=== PATIENT | female | born 1940 | race Caucasian/White ===

== ENCOUNTER 2017-10-11 14:36 | Outpatient (CLI) | payer MEDICARE ==
--- NOTE | 2017-10-11 15:38 | SJPRAD ---
LEFT FEMUR FOUR VIEWS: History: Thigh pain. FINDINGS: Total hip prosthesis is in satisfactory position. No signs of fracture or loosening. The bones are ve ry demineralized. Fracture along the left side of the symphysis which appears to extend into the supe rior pubic ramus is noted. This was not present on the 04-06-17 study. IMPRESSION: Fracture of the left side of the symphysis and superior pubic ramus which is nondisplaced. POS: [facility]
--- NOTE | 2017-10-11 15:44 | SJPRAD ---
LEFT HIP TWO VIEWS: History: Hip pain. FINDINGS: The bones are demineralized. Total hip prosthesis is in good position without evidence of loosening o r fracture. There is a fracture involving the left side of the symphysis near the junction of the superior and in ferior pubic rami. In reviewing a previous 04-06-17 study this was not present. This could be related to trauma or possibly be an insufficiency type fracture related to osteoporosis. IMPRESSION: Fracture along the left side of the symphysis which is new as compared to a 04-06-17 exam. POS: [facility]
== END 2017-10-11 14:37 | disposition home or self-care (01) ==
LOC: MWLC RAD 14:36
PROVIDERS: ATTEND Internal Medicine Geriatric Medicine
DX: M25.552 Pain in left hip (principal); S32.512D Fracture of superior rim of left pubis, subsequent encounter for fracture with routine healing

== ENCOUNTER 2017-10-22 14:39 | Inpatient (IN) | payer MEDICARE, OTHER ==
[2017-10-22 15:17] LABS: #Lymphocytes 1.1 thou/uL (1.20-3.40); #Monocytes 1.5 thou/uL (0.11-0.59); #Neutrophils 9.4 thou/uL (1.40-6.50); %Basophils 0.3 % (0.0-1.0); %Eosinophils 0.2 % (0.0-10.0); %Lymphocytes 9.3 % (21.0-51.0); %Monocytes 12.4 % (0.0-10.0); Hematocrit 39.1 % (36.0-47.0); Mean Platelet Volume 9.4 fL (7.4-10.4); Red Blood Cell (RBC) Count 3.81 mill/uL (4.20-5.40); White Blood Cell (WBC) Count 12.1 thou/uL (4.8-10.8)
[2017-10-22] MEDS ORDERED: Ondansetron HCl/PF 4 MG/2 ML Vial ONE (15:23)
[2017-10-22 15:35] LABS: Lactic Acid - Sepsis 2.2 mmol/L (0.5-2.2)
[2017-10-22 16:17] LABS: Bilirubin Small (Negative); Blood, Urine Negative (Negative); Glucose, Urine (Dipstick) Negative (Negative); Ketone, Urine > or equal to 80 mg/dL (Negative); Nitrite Negative (Negative); Protein, Urine (Dipstick) 300 mg/dL (Neg-Trace)
[2017-10-22 16:18] LABS: Bacteria/HPF None Seen HPF (None Seen); Hyaline Casts/LPF 0-3 HYALINE CAST LPF (0-3 Hyaline); RBC/HPF 0-3 HPF (0-3); Squamous Epithelial 0-3 HPF (0-3); WBC/HPF 0-3 HPF (0-3)
[2017-10-22] MEDS ORDERED: Azithromycin 500 MG VIAL ONE (16:21)
[2017-10-22] MEDS ORDERED: Acetaminophen 325 MG TAB PO PRN (16:46)
[2017-10-22] MEDS ORDERED: Acetaminophen 650 MG Suppository PR PRN (16:46)
[2017-10-22 16:49] LABS: Chloride 101 mmol/L (98-107)
[2017-10-22 16:50] LABS: Calcium 8.6 mg/dL (7.8-10.44); Globulin 3.2 g/dL (2.4-3.5); Protein, Total 6.4 g/dL (6.0-8.3)
[2017-10-22 16:52] LABS: Anion Gap 17 mmol/L (10-20); Bilirubin, Total 0.5 mg/dL (0.2-1.2); Carbon Dioxide 21 mmol/L (23-31)
[2017-10-22 16:53] LABS: Alkaline Phosphatase 106 U/L (40-150); Calc. Creatinine Clearance 0 mL/min (70-130); Estimated GFR-MDRD Greater than 90
[2017-10-22 16:54] LABS: BUN (Urea Nitrogen) 9 mg/dL (9.8-20.1)
[2017-10-22 16:55] LABS: AST (SGOT) 22 U/L (5-34)
[2017-10-22 16:56] LABS: ALT (SGPT) 13 U/L (8-55)
[2017-10-22] MEDS ORDERED: cefTRIAXone\\ROCEPHIN 1 GM in Sodium Chloride 0.9% 100 ML IVPB SCH (17:00)
--- NOTE | 2017-10-22 17:05 | RAD ---
PORTABLE AP CHEST X-RAY 10/22/17 HISTORY: Cough. Frequent falls. COMPARISON: 07/21/15. FINDINGS: Postsurgical changes related to the anterior cervical fusion of the lower cervical spine are noted. T here is osteopenia. Vertebroplasty changes of the mid and lower thoracic spine are present. Vascular calcifications seen in the thoracic aorta. The cardiac silhouette and pulmonary vasculature are within normal limits. There is mild increased in terstitial densities throughout the lungs bilaterally, most likely reflective of chronic interstitial lung changes. No new focal area of consolidation or pleural fluid is seen. IMPRESSION: 1. Stable increased interstitial densities bilaterally, greater in the right upper lung zone pro bably related to chronic lung changes. 2. Osteopenia. POS: [facility]
--- NOTE | 2017-10-22 17:48 | HP ---
PRIMARY CARE PHYSICIAN: Johana Reina M.D. CHIEF COMPLAINT: Shortness of breath. HISTORY OF PRESENT ILLNESS: Mr. Thomas Merritt is a pleasant 76-year-old lady who was seen at [facility]. She is a poor historian. She initially presented to the emergency room rep orting frequent falls at home and feeling dizzy. She also reportedly told the staff that was giving her too much tramadol. She also told the emergency room physician that she had nausea, fever , and diarrhea. She denies vomiting. When I spoke to her, she denied having any nausea or vomiting. She reports feeling short of breath s mirna this morning. She also reports coughing since this morning. Her reports that she had f muriel at home. She denied that her give her much tramadol. She denied any chest pain. She denied any abdominal pain. Her main complaint was that she was having difficult time breathing. REVIEW OF SYSTEM: The following complete review of systems was negative, unless otherwise mentioned in the HPI or below: Constitutional: Weight loss or gain, sense of well-being, ability to conduct usual activities, exerc ise tolerance. Skin/Breast: Rash, itching, changes in hair growth or loss, nail changes, breast lumps, tenderness, swelling, nipple discharge. Eyes: Vision, double vision, tearing, blind spots, pain. ENT/Mouth: Headaches (location, time of onset, duration, precipitating factors), vertigo, lightheade dness, injury. Vision, double vision, tearing, blind spots, pain, nose bleeding, colds, obstruction, discharge, dental difficulties, gingival bleeding, dentures, neck stiffness, pain, tenderness, masses in thyroid or other areas. Cardiovascular: Precordial pain, substernal distress, palpitations, syncope, dyspnea on exertion, or thopnea, nocturnal paroxysmal dyspnea, edema, cyanosis, hypertension, heart murmurs, varicosities, ph lebitis, claudication. Respiratory: Pain, shortness of breath, wheezing, stridor, cough, hemoptysis, fever or night sweats. Gastrointestinal: Poor appetite, dysphagia, indigestion, abdominal pain, heartburn, eructation, naus ea, vomiting, hematemesis, jaundice, constipation, or diarrhea, abnormal stools (orin-colored, tarry, bloody, greasy, foul smelling), flatulence, hemorrhoids, recent changes in bowel habits. Genitourinary: Urgency, frequency, dysuria, nocturia, hematuria, polyuria, oliguria, unusual (or cherry nge in) color of urine, stones, hesitancy, change in size of stream, dribbling, acute retention or in continence, libido, potency. Musculoskeletal: Pain, swelling, redness or heat of muscles or joints, limitation, of motion, muscul ar weakness, atrophy, cramps. Neurologic/Psychiatric: Convulsions, paralyses, tremor, incoordination, parasthesias, difficulties w ith memory of speech, sensory or motor disturbances, or muscular coordination (ataxia, tremor), emoti onal problems, anxiety, depression, previous psychiatric care, unusual perceptions, hallucinations. Allergy/Immunologic: Skin rash, anemia, bleeding tendency, polydipsia, polyuria, intolerance to heat or cold. PAST MEDICAL HISTORY: Significant for coronary artery disease, status post non-ST elevation myocardi al infarction, BENDING ROLL HAND including drug-coated stent placement to mid LAD in 12/2014, ischemic cardiomyopat hy, chronic obstructive pulmonary disease, hypertension, depression, anxiety, osteoporosis, falls, ch ronic pain syndrome, colon polyps, gastroesophageal reflux disease. PAST SURGICAL HISTORY: Significant for open reduction and internal fixation of right hip fracture, h ysterectomy, laminectomy of cervical spine, appendectomy, cholecystectomy, L5 medial facetectomy and laminectomy with foraminotomy in 2008, T11-T12 compression fracture with kyphoplasty, C4-C7 anterior cervical diskectomy and cardiac catheterization with PCI. FAMILY HISTORY: She was adopted, does not know any family history. SOCIAL HISTORY: She denies tobacco use, alcohol use or recreational drug use. PSYCHIATRIC HISTORY: Includes anxiety and depression. ALLERGIES: CODEINE. CURRENT MEDICATIONS: These will need to be clarified. In the past, she was on acetaminophen, Xanax, aspirin, Lipitor, Coreg, clonazepam, Neurontin, [place], lisinopril, polyethylene glycol, and trazodon e. CODE STATUS: I discussed her code status in the presence of her . She wishes to be DNR. PHYSICAL EXAMINATION: GENERAL: Ms. Thomas Merritt is awake and alert, in mild respiratory distress. VITAL SIGNS: Blood pressure is 159/75, pulse is 109. She is breathing at rate of 18, and saturating 96% on room air. She had a temperature of 100 degrees Fahrenheit in the emergency room. She weighs 54 kilograms. EYES: No scleral icterus. No conjunctival pallor. ENT: Moist mucosal membranes, no oropharyngeal erythema or exudates. NECK: Accessory muscles of breathing are active. Chest wall movements are symmetric bilaterally. N o jugular venous distention. LUNGS: Examination reveals diminished breath sounds at both lung bases and expiratory wheezes in the upper lung zones. CARDIOVASCULAR: S1 and S2 are heard, tachycardic and regular. Peripheral pulses palpable. No carot id bruit, no pericardial rub. ABDOMEN: Soft, nontender, bowel sounds heard, no hepatomegaly, no splenomegaly. NEUROLOGIC: Cranial nerves II-XII intact. Deep tendon reflexes are 2+. MUSCULOSKELETAL: Power is 5/5 in all 4 extremities. Normal range of movement at all major extremity joints. LYMPHATIC: No cervical lymphadenopathy. PSYCHIATRIC: The patient appears anxious, oriented to person, place, and time. SKIN: No rashes or subcutaneous nodules. LABORATORY DATA: Ms. Thomas Merritt's labs and investigations were reviewed. I reviewed her electrocard iogram, which shows sinus tachycardia, no ST changes to suggest an acute coronary syndrome. I also r eviewed her chest x-ray, which shows hyperinflated lungs, no focal consolidation. Laboratory investi gations showed leukocytosis with 12,100 white cells, of which 77.9% are neutrophils, normal platelet count, normal hemoglobin, decreased sodium of 135, normal potassium, creatinine 0.57, decreased album in of 3.2, but otherwise unremarkable liver profile and a normal lactic acid level of 2.2. Urinalysi s is positive for protein, ketones and small amount of urine bilirubin. ASSESSMENT AND PLAN: Ms. Thomas Merritt is a pleasant 75-year-old lady who was seen at [facility] on 10/22/2017. Her problem list includes: 1. Acute respiratory failure: Ms. Thomas Merritt is presenting to the emergency room with acute respira tory failure. The most likely cause is chronic obstructive pulmonary disease exacerbation/bronchitis . She has been started on ceftriaxone and azithromycin, which I will continue. We will also continu e bronchodilators and initiate steroids. Even though her presentation meets the criteria for her sep sis, it is unclear whether she has any source of infection outside the respiratory tract. We will aw ait blood cultures. We will also check D-dimer to rule out pulmonary embolism. 2. Chronic obstructive pulmonary disease exacerbation/bronchitis: She is currently being treated wi th the BiPAP machine. She appears uncomfortable on the machine. We will try to wean her off of BiPA P if possible. As mentioned earlier, we will treat with oxygen, steroids, antibiotics and bronchodil ators. 3. Hyponatremia: Mild, we will recheck. 4. Hypertension: Monitor vital signs, titrate antihypertensives as needed. 5. Falls: I will request walking program to assess her. She may eventually need PT and OT evaluati ons as well as the discharge plan. She reportedly has been falling quite a bit at home. 6. Gastroesophageal reflux disease: Appears stable. Many thanks for allowing me to participate in your patient's care. Please feel free to contact me wi th any questions or concerns. LEVEL OF RISK: High. LEFT OF COMPLEXITY: High.
[2017-10-23 04:42] LABS: #Lymphocytes 0.9 thou/uL (1.20-3.40); #Monocytes 0.3 thou/uL (0.11-0.59); #Neutrophils 8.1 thou/uL (1.40-6.50); %Basophils 0.1 % (0.0-1.0); %Eosinophils 0.2 % (0.0-10.0); %Lymphocytes 10.1 % (21.0-51.0); %Monocytes 2.9 % (0.0-10.0); Hematocrit 34.8 % (36.0-47.0); Mean Platelet Volume 8.6 fL (7.4-10.4); Red Blood Cell (RBC) Count 3.37 mill/uL (4.20-5.40); White Blood Cell (WBC) Count 9.3 thou/uL (4.8-10.8)
[2017-10-23 04:58] LABS: Anion Gap 12 mmol/L (10-20); BUN (Urea Nitrogen) 12 mg/dL (9.8-20.1); Calc. Creatinine Clearance 60 mL/min (70-130); Calcium 9.1 mg/dL (7.8-10.44); Carbon Dioxide 26 mmol/L (23-31); Chloride 102 mmol/L (98-107); Estimated GFR-MDRD Greater than 90
[2017-10-23] MEDS: Enoxaparin Sodium 40 MG/0.4 ML SYRINGE SC SCH (08:27)
[2017-10-23] MEDS ORDERED: traMADol HCl 50 MG TAB PO PRN (11:53)
--- NOTE | 2017-10-23 11:56 | PDOC.PN ---
- Subjective Encounter Start Date: 10/23/17 Encounter Start Time: 09:20 Pt seen for followup re: acute on chronic respiratory failure. Feels better. Denies chest pain. Shortness of breath is better. No nausea or vomiting. - Objective MAR Reviewed: Yes Vital Signs & Weight: Vital Signs (12 hours) Temp Pulse Resp BP Pulse Ox 10/23/17 11:43 98.0 F 106 H 18 139/62 97 10/23/17 08:00 98.2 F 100 18 99 10/23/17 07:20 99 10/23/17 07:18 100 18 99 10/23/17 07:13 98.2 F 101 H 16 134/76 98 10/23/17 04:15 98.0 F 82 18 124/54 L 96 10/23/17 00:32 87 12 98 10/23/17 00:12 97.7 F 63 16 139/63 98 Weight Weight 104 lb 9.6 oz I&O: 10/22/17 10/23/17 10/24/17 06:59 06:59 06:59 Intake Total 90 Balance 90 Result Diagrams: 10/23/17 03:51 10/23/17 03:51 EKG Reviewed by me: Yes (Tele: NSR) Phys Exam - Physical Examination Appears frail HEENT: moist MMs, sclera anicteric, oral pharynx no lesions Neck: no JVD, supple, full ROM Respiratory: no wheezing, no rales, no rhonchi, clear to auscultation bilateral Diminished air entry emilia bases Cardiovascular: RRR, no rub Gastrointestinal: soft, non-tender, no distention, positive bowel sounds Musculoskeletal: no edema, pulses present Neurological: non-focal, moves all 4 limbs Lymphatic: no nodes Psychiatric: normal affect, A&O x 3 Skin: no rash, normal turgor, cap refill <2 seconds Dx/Plan (1) Acute and chronic respiratory failure Code(s): J96.20 - ACUTE AND CHR RESP FAILURE, UNSP W HYPOXIA OR HYPERCAPNIA Status: Acute (2) COPD exacerbation Code(s): J44.1 - CHRONIC OBSTRUCTIVE PULMONARY DISEASE W (ACUTE) EXACERBATION Status: Acute (3) Protein calorie malnutrition Code(s): E46 - UNSPECIFIED PROTEIN-CALORIE MALNUTRITION Status: Chronic (4) Anxiety Code(s): F41.9 - ANXIETY DISORDER, UNSPECIFIED Status: Chronic (5) CAD (coronary artery disease) Code(s): I25.10 - ATHSCL HEART DISEASE OF [place] CORONARY ARTERY W/O ANG PCTRS Status: Chronic (6) HTN (hypertension) Code(s): I10 - ESSENTIAL (PRIMARY) HYPERTENSION Status: Chronic - Plan continue antibiotics, PT/OT, out of bed/ambulate, DVT proph w/lovenox * . Continue oxygen, steroids, antibiotics and oxygen. Monitor vital signs, titrate antihypertensives as needed. CAD stable. Consult dietitian re: protein calorie malnutrition. Review of Systems - Review of Systems Constitutional: negative: Fever, Chills, Sweats, Weakness, Malaise Respiratory: Cough, Dry, Shortness of Breath, SOB with Excertion, Wheezing. negative: Hemoptysis, Pleuritic Pain, Sputum Cardiovascular: negative: Chest Pain, Palpitations, Orthopnea, Paroxysmal Noc. Dyspnea, Edema, Light Headedness Gastrointestinal: negative: Nausea, Vomiting, Abdominal Pain, Diarrhea, Constipation, Melena, Hematochezia Genitourinary: negative: Dysuria, Frequency, Incontinence, Hematuria, Retention - Medications/Allergies Allergies/Adverse Reactions: Allergies Allergy/AdvReac Type Severity Reaction Status Date / Time codeine [Codeine] AdvReac Unknown Verified 11/09/15 15:12 Medications: Current Medications Acetaminophen (Tylenol) 650 mg PO Q4H PRN PRN Reason: Headache/Fever or Pain Last Admin: 10/22/17 21:12 Dose: 650 mg Acetaminophen (Tylenol) 650 mg OR Q4H PRN PRN Reason: Headache/Fever or Pain Albuterol/Ipratropium (Duoneb) 3 ml NEB [id number] PRN PRN Reason: SOB &/or Wheezing Albuterol/Ipratropium (Duoneb) 3 ml NEB [id number] [facility] Last Admin: 10/23/17 07:18 Dose: 3 ml Aspirin (Aspirin) 81 mg PO DAILY [facility] Atorvastatin Calcium (Lipitor) 40 mg PO DAILY [facility] Carvedilol (Coreg) 6.25 mg PO BID [facility] Enoxaparin Sodium (Lovenox) 40 mg SC 0900 [facility] Last Admin: 10/23/17 08:27 Dose: 40 mg Gabapentin (Neurontin) 300 mg PO BID [facility] Azithromycin 500 mg/ Sodium (Chloride) 250 mls @ 250 mls/hr IVPB 1600 [facility] Ceftriaxone Sodium 1 gm/ (Syringe 0.4 ml/ Sterile Water) 10 mls @ 120 mls/hr SLOW IVP 1500 [facility] Lisinopril (Zestril) 5 mg PO BID [facility] Methylprednisolone Sodium Succinate (Solu-Medrol) 40 mg IVP Q6HR [facility] Last Admin: 10/23/17 06:16 Dose: 40 mg Mirtazapine (Remeron) 30 mg PO DAILY [facility] Non-Formulary Medication (Clopidogrel Bisulfate [Clopidogrel]) 75 mg PO DAILY [facility] Tramadol HCl (Ultram) 50 mg PO PRN PRN PRN Reason: Pain
[2017-10-23] MEDS ORDERED: cefTRIAXone\\ROCEPHIN 1 GM, Syringe 0.4 ML in Sterile Water 9.6 ML SLOW IVP SCH (15:00)
[2017-10-23] MEDS ORDERED: Azithromycin 500 MG in Sodium Chloride 0.9% 250 ML 250 ML IVPB SCH (16:00)
--- NOTE | 2017-10-23 20:54 | CON ---
DATE OF CONSULT: 10/23/2017 Ashlee Merritt is a pleasant 76-year-old female. She is a fair historian at best. She apparently felt dizzy prior to admission. She denied shortness of breath to me, but told the adm itting physician that she was short of breath. She subsequently has been admitted. All she wanted t o talk about was why her cellphone was at the bedside, why did not have the contract management specialist and wanted to daniel goode who brought it to her. PAST MEDICAL HISTORY: Remarkable for, 1. Coronary artery disease. 2. History of drug-eluting stent placement in her LAD in 2014. 3. History of ischemic cardiomyopathy. 4. History of obstructive lung disease. 5. History of hypertension. 6. History of anxiety. 7. History of chronic pain. 8. History of colon polyps. 9. History of reflux disease. 10. History of hip fracture repair. 11. Status post hysterectomy. 12. History of cervical laminectomy. 13. History of cholecystectomy. 14. History of L5 surgery in 2008. 15. History of T11-T12 compression fractures with kyphoplasty. 16. History of C4 through C7 anterior diskectomy. SOCIAL HISTORY: She is a nonsmoker, nondrinker. ALLERGIES: She reports an allergy to CODEINE. FAMILY HISTORY: There is no family history since she is adopted. PHYSICAL EXAMINATION: GENERAL: She knows she is in the hospital. She is afebrile. She very quickly told me that her nerv es were a mess. VITAL SIGNS: Heart rate was 97, respiratory rate was 18, oximetry is 91 on 2 liters, blood pressure 139/62. HEENT: Pupils are equal. Sclerae is anicteric. NECK: Supple. LUNGS: Remarkable for distant breath sounds. HEART: Regular rhythm. S1 and S2 are normal. ABDOMEN: Soft and nontender. EXTREMITIES: Without asymmetry. LABORATORY AND X-RAY FINDINGS: Chest radiograph shows an increase in interstitial markings. I do n ot see any alveolar infiltrates. White count 9.3, hemoglobin 10.8, platelets 192. Sodium 136, potas sium 3.8, chloride 102, bicarbonate 26, BUN 12, creatinine 0.6, glucose 148. IMPRESSION: ? failure to thrive. I would wonder if she does have some degree of dementia. There is no mention of past H&Ps of any confusion, encephalopathy, or dementia diagnosis. Reviewed her medications, feel they are appropriate. I do not feel she needs IV antibiotics. These she can be switched to p.o. antimicrobial therapy and p.o. steroids. She has COPD exacerbation, soo [place] in with this, it is very mild.
[2017-10-23] MEDS: Cefuroxime Axetil 250 MG TAB PO SCH (21:39)
[2017-10-23] MEDS: Lisinopril 2.5 MG TAB PO SCH (21:39)
[2017-10-23] MEDS: Carvedilol 3.125 MG TAB PO SCH (21:40)
[2017-10-23] MEDS: Gabapentin 300 MG CAP PO SCH (21:40)
[2017-10-24 06:02] LABS: Anion Gap 11 mmol/L (10-20); BUN (Urea Nitrogen) 14 mg/dL (9.8-20.1); Calc. Creatinine Clearance 61 mL/min (70-130); Calcium 9.1 mg/dL (7.8-10.44); Carbon Dioxide 28 mmol/L (23-31); Chloride 104 mmol/L (98-107); Estimated GFR-MDRD Greater than 90
[2017-10-24 06:27] LABS: #Lymphocytes 1.2 thou/uL (1.20-3.40); #Monocytes 0.9 thou/uL (0.11-0.59); #Neutrophils 9.5 thou/uL (1.40-6.50); %Basophils 0.1 % (0.0-1.0); %Eosinophils 0.1 % (0.0-10.0); %Lymphocytes 10.2 % (21.0-51.0); %Monocytes 7.9 % (0.0-10.0); Hematocrit 35.6 % (36.0-47.0); Mean Platelet Volume 8.3 fL (7.4-10.4); Red Blood Cell (RBC) Count 3.39 mill/uL (4.20-5.40); White Blood Cell (WBC) Count 11.6 thou/uL (4.8-10.8)
[2017-10-24] MEDS: Lisinopril 2.5 MG TAB PO SCH (09:03)
[2017-10-24] MEDS: Gabapentin 300 MG CAP PO SCH ×2 (09:03→21:36)
[2017-10-24] MEDS: predniSONE 20 MG TAB PO SCH (09:03)
[2017-10-24] MEDS: Multivitamin W/ Minerals 1 TAB PO SCH (09:04)
[2017-10-24] MEDS: Atorvastatin Calcium 40 MG TAB PO SCH (09:04)
[2017-10-24] MEDS: Aspirin 81 mg Enteric Coated Tablet PO SCH (09:04)
[2017-10-24] MEDS: Mirtazapine 15 MG TAB PO SCH ×3 (09:04→21:37)
[2017-10-24] MEDS: Cyanocobalamin (Vitamin B-12) 1,000 MCG TAB PO SCH (09:04)
[2017-10-24] MEDS: Folic Acid 1 MG TAB PO SCH (09:04)
[2017-10-24] MEDS: Famotidine 20 MG TAB PO SCH ×2 (09:04→21:36)
[2017-10-24] MEDS: Clopidogrel Bisulfate 75 MG TAB PO SCH (09:04)
[2017-10-24] MEDS: Carvedilol 3.125 MG TAB PO SCH ×2 (09:04→21:35)
[2017-10-24] MEDS: Cefuroxime Axetil 250 MG TAB PO SCH ×2 (09:04→21:37)
[2017-10-24] MEDS: Enoxaparin Sodium 40 MG/0.4 ML SYRINGE SC SCH (09:05)
--- NOTE | 2017-10-24 11:20 | PDOC.PN ---
- Subjective Encounter Start Date: 10/24/17 Encounter Start Time: 10:00 -: old records requested/rev Patient seen and examined. No new complaints. No overnight events - Objective MAR Reviewed: Yes Vital Signs & Weight: Vital Signs (12 hours) Temp Pulse Resp BP Pulse Ox 10/24/17 08:00 98.1 F 89 18 134/71 93 L 10/24/17 07:44 98 20 94 L 10/24/17 04:32 97.9 F 83 18 109/61 94 L 10/24/17 00:52 95 10/24/17 00:51 94 L 10/24/17 00:00 98.1 F 79 18 123/63 94 L Weight Weight 104 lb 9.6 oz I&O: 10/23/17 10/24/17 10/25/17 06:59 06:59 06:59 Intake Total 90 720 Output Total 1000 Balance 90 -280 Result Diagrams: 10/24/17 04:26 10/24/17 04:26 Phys Exam - Physical Examination Constitutional: NAD HEENT: PERRLA, moist MMs, sclera anicteric Neck: no JVD, supple Respiratory: no wheezing, no rales, no rhonchi Cardiovascular: RRR, no significant murmur, no rub Gastrointestinal: soft, non-tender, no distention, positive bowel sounds Musculoskeletal: no edema, pulses present Neurological: non-focal, normal sensation Lymphatic: no nodes Psychiatric: normal affect, A&O x 3 Skin: no rash, normal turgor Dx/Plan (1) Acute respiratory failure with hypoxia Code(s): J96.01 - ACUTE RESPIRATORY FAILURE WITH HYPOXIA Status: Resolved (2) COPD exacerbation Code(s): J44.1 - CHRONIC OBSTRUCTIVE PULMONARY DISEASE W (ACUTE) EXACERBATION Status: Acute (3) Physical deconditioning Code(s): R53.81 - OTHER MALAISE Status: Acute (4) Anxiety and depression Code(s): F41.8 - OTHER SPECIFIED ANXIETY DISORDERS Status: Chronic (5) CAD (coronary artery disease) Code(s): I25.10 - ATHSCL HEART DISEASE OF [place] CORONARY ARTERY W/O ANG PCTRS Status: Chronic (6) Dementia Code(s): F03.90 - UNSPECIFIED DEMENTIA WITHOUT BEHAVIORAL DISTURBANCE Status: Chronic (7) GERD (gastroesophageal reflux disease) Code(s): K21.9 - GASTRO-ESOPHAGEAL REFLUX DISEASE WITHOUT ESOPHAGITIS Status: Chronic (8) HTN (hypertension) Code(s): I10 - ESSENTIAL (PRIMARY) HYPERTENSION Status: Chronic (9) Macrocytic anemia Code(s): D53.9 - NUTRITIONAL ANEMIA, UNSPECIFIED Status: Chronic (10) Protein-calorie malnutrition, moderate Code(s): E44.0 - MODERATE PROTEIN-CALORIE MALNUTRITION Status: Chronic - Plan cont current plan of care, continue antibiotics, PT/OT, social sciences lecturer, respiratory therapy * continue selected home meds * medication reviewed as below * symptomatic treatment * start PT/OT * nutritional support * expecting discharge tomorrow. * add folic acid and vitamin B12 * social work for discharge placement Review of Systems - Review of Systems Constitutional: Weakness. negative: Fever, Chills, Sweats, Malaise, Other ENT: negative: Ear Pain, Ear Discharge, Nose Pain, Nose Discharge, Nose Congestion, Mouth Pain, Mouth Swelling, Throat Pain, Throat Swelling, Other Respiratory: negative: Cough, Dry, Shortness of Breath, Hemoptysis, SOB with Excertion, Pleuritic Pain, Sputum, Wheezing Cardiovascular: negative: Chest Pain, Palpitations, Orthopnea, Paroxysmal Noc. Dyspnea, Edema, Light Headedness, Other Gastrointestinal: negative: Nausea, Vomiting, Abdominal Pain, Diarrhea, Constipation, Melena, Hematochezia, Other Genitourinary: negative: Dysuria, Frequency, Incontinence, Hematuria, Retention , Other Musculoskeletal: negative: Neck Pain, Shoulder Pain, Arm Pain, Back Pain, Hand Pain, Leg Pain, Foot Pain, Other Skin: negative: Rash, Lesions, Ray, Bruising, Other - Medications/Allergies Allergies/Adverse Reactions: Allergies Allergy/AdvReac Type Severity Reaction Status Date / Time codeine [Codeine] AdvReac Unknown Verified 11/09/15 15:12 Medications: Current Medications Acetaminophen (Tylenol) 650 mg PO Q4H PRN PRN Reason: Headache/Fever or Pain Last Admin: 10/22/17 21:12 Dose: 650 mg Acetaminophen (Tylenol) 650 mg [place] Q4H PRN PRN Reason: Headache/Fever or Pain Albuterol/Ipratropium (Duoneb) 3 ml NEB [id number] PRN PRN Reason: SOB &/or Wheezing Albuterol/Ipratropium (Duoneb) 3 ml NEB [id number] [facility] Last Admin: 10/24/17 07:44 Dose: 3 ml Aspirin (Ecotrin) 81 mg PO DAILY [facility] Last Admin: 10/24/17 09:04 Dose: 81 mg Atorvastatin Calcium (Lipitor) 40 mg PO DAILY [facility] Last Admin: 10/24/17 09:04 Dose: 40 mg Carvedilol (Coreg) 6.25 mg PO BID [facility] Last Admin: 10/24/17 09:04 Dose: 6.25 mg Cefuroxime Axetil (Ceftin) 250 mg PO Q12HR [facility] Last Admin: 10/24/17 09:04 Dose: 250 mg Clopidogrel Bisulfate (Plavix) 75 mg PO DAILY [facility] Last Admin: 10/24/17 09:04 Dose: 75 mg Cyanocobalamin (Vitamin B-12) 1,000 mcg PO DAILY [facility] Last Admin: 10/24/17 09:04 Dose: 1,000 mcg Enoxaparin Sodium (Lovenox) 40 mg SC 0900 [facility] Last Admin: 10/24/17 09:05 Dose: 40 mg Famotidine (Pepcid) 20 mg PO BID [facility] Last Admin: 10/24/17 09:04 Dose: 20 mg Folic Acid (Folvite) 1 mg PO DAILY [facility] Last Admin: 10/24/17 09:04 Dose: 1 mg Gabapentin (Neurontin) 300 mg PO BID [facility] Last Admin: 10/24/17 09:03 Dose: 300 mg Iron/Minerals/Multivitamins (Theragran M) 1 tab PO DAILY [facility] Last Admin: 10/24/17 09:04 Dose: 1 tab Lisinopril (Zestril) 5 mg PO BID [facility] Mirtazapine (Remeron) 30 mg PO HS [facility] Prednisone (Prednisone) 40 mg PO QAM-WM [facility] Last Admin: 10/24/17 09:03 Dose: 40 mg Tramadol HCl (Ultram) 50 mg PO PRN PRN PRN Reason: Pain
--- NOTE | 2017-10-24 17:24 | PRG ---
DATE OF SERVICE: 10/24/2017 SERVICE: Pulmonary Medicine. INTERVAL HISTORY: The patient is really doing quite well. She denies any shortness of breath or giovana st discomfort. Strength is improving. Her pain all over has actually improved as well. She denies any current fevers, chills or overnight events. PHYSICAL EXAMINATION: VITAL SIGNS: Afebrile. Pulse 85, blood pressure 100/56, respirations 18, and saturation 94% on [address] nasal cannula. HEENT: Normocephalic, atraumatic. Sclerae are white, conjunctivae pink. Oral and nasal mucosa is m oist without lesions. LUNGS: Decent air entry. I do not appreciate prolonged expiratory phase, wheezing or rhonchi. HEART: Normal rate, regular. ABDOMEN: Soft, nontender, nondistended. Bowel sounds are positive. MUSCULOSKELETAL: No cyanosis or clubbing. No pitting in the bilateral lower extremities. NEUROLOGIC: Grossly nonfocal. LABORATORY DATA: WBC 11.6, hemoglobin 10.6, platelets 231,000. D-dimer 3.07. Basic metabolic profi le is completely unremarkable. Urinalysis is also unremarkable except for slightly elevated ketones. Influenza A and B is unremarkable. Blood cultures x2 and urine culture are negative. IMAGING: Chest x-ray demonstrates increased interstitial densities bilaterally. These roughly stabl e. Osteopenia is evident. She has a little bit of scoliosis. Costophrenic angles are clear. I cer tainly do not see any consolidating pneumonias. ASSESSMENT: 1. Acute hypoxic respiratory failure, resolving. 2. Chronic obstructive pulmonary disease with acute exacerbation. 3. Acute hypoxic respiratory failure. 4. Possible cognitive impairment. PLAN: We will continue supportive care. The patient can be transitioned to the floor. At this poin t, she is stable for transition out of the hospital from a purely lung standpoint. I will continue t o follow while she remains in house for the time being. We will work on mobilizing her today.
[2017-10-24 17:38] VITALS: BMI 19.1
[2017-10-24] MEDS: Lisinopril 5 MG TAB PO SCH (21:36)
[2017-10-25 04:32] LABS: #Lymphocytes 1.8 thou/uL (1.20-3.40); #Monocytes 1.5 thou/uL (0.11-0.59); #Neutrophils 8.1 thou/uL (1.40-6.50); %Basophils 0.2 % (0.0-1.0); %Eosinophils 0.4 % (0.0-10.0); %Lymphocytes 15.4 % (21.0-51.0); %Monocytes 12.9 % (0.0-10.0); Hematocrit 33.6 % (36.0-47.0); Mean Platelet Volume 8.6 fL (7.4-10.4); Red Blood Cell (RBC) Count 3.25 mill/uL (4.20-5.40); White Blood Cell (WBC) Count 11.4 thou/uL (4.8-10.8)
[2017-10-25 04:45] LABS: Anion Gap 12 mmol/L (10-20); BUN (Urea Nitrogen) 13 mg/dL (9.8-20.1); Calc. Creatinine Clearance 61 mL/min (70-130); Calcium 8.6 mg/dL (7.8-10.44); Carbon Dioxide 27 mmol/L (23-31); Chloride 105 mmol/L (98-107); Estimated GFR-MDRD Greater than 90
[2017-10-25] MEDS: Atorvastatin Calcium 40 MG TAB PO SCH (08:57)
[2017-10-25] MEDS: Aspirin 81 mg Enteric Coated Tablet PO SCH (08:57)
[2017-10-25] MEDS: Gabapentin 300 MG CAP PO SCH ×2 (08:57→21:38)
[2017-10-25] MEDS: Lisinopril 5 MG TAB PO SCH ×2 (08:58→21:38)
[2017-10-25] MEDS: Clopidogrel Bisulfate 75 MG TAB PO SCH (08:58)
[2017-10-25] MEDS: predniSONE 20 MG TAB PO SCH (08:58)
[2017-10-25] MEDS: Folic Acid 1 MG TAB PO SCH (08:58)
[2017-10-25] MEDS: Enoxaparin Sodium 40 MG/0.4 ML SYRINGE SC SCH (08:58)
[2017-10-25] MEDS: Carvedilol 3.125 MG TAB PO SCH ×2 (08:58→21:36)
[2017-10-25] MEDS: Cyanocobalamin (Vitamin B-12) 1,000 MCG TAB PO SCH (08:58)
[2017-10-25] MEDS: Famotidine 20 MG TAB PO SCH ×2 (08:58→21:38)
[2017-10-25] MEDS: Multivitamin W/ Minerals 1 TAB PO SCH (08:58)
[2017-10-25] MEDS: Cefuroxime Axetil 250 MG TAB PO SCH ×2 (09:51→21:36)
--- NOTE | 2017-10-25 12:54 | PDOC.PN ---
- Subjective Encounter Start Date: 10/25/17 Encounter Start Time: 08:10 Subjective: breathing better - Objective MAR Reviewed: Yes Vital Signs & Weight: Vital Signs (12 hours) Temp Pulse Resp BP Pulse Ox 10/25/17 08:58 84 10/25/17 08:00 98.3 F 84 16 92 L 10/25/17 07:57 84 16 92 L 10/25/17 07:47 98.3 F 84 18 135/67 90 L 10/25/17 04:00 84 20 92 L Weight Admit Weight 104 lb 9.6 oz Weight 104 lb 9.6 oz I&O: 10/24/17 10/25/17 10/26/17 06:59 06:59 06:59 Intake Total 720 1000 Output Total 1000 Balance -280 1000 Result Diagrams: 10/25/17 03:09 10/25/17 03:09 Phys Exam - Physical Examination HEENT: PERRLA, moist MMs Neck: no JVD, supple Respiratory: no wheezing, no rales rhonchi+ Cardiovascular: RRR, no significant murmur Gastrointestinal: soft, non-tender, positive bowel sounds Musculoskeletal: no edema, pulses present Neurological: non-focal, moves all 4 limbs Psychiatric: A&O x 3 Dx/Plan (1) COPD exacerbation Code(s): J44.1 - CHRONIC OBSTRUCTIVE PULMONARY DISEASE W (ACUTE) EXACERBATION Status: Acute (2) Physical deconditioning Code(s): R53.81 - OTHER MALAISE Status: Acute (3) Anxiety and depression Code(s): F41.8 - OTHER SPECIFIED ANXIETY DISORDERS Status: Chronic (4) CAD (coronary artery disease) Code(s): I25.10 - ATHSCL HEART DISEASE OF [place] CORONARY ARTERY W/O ANG PCTRS Status: Chronic Qualifiers: Coronary Disease-Associated Artery/Lesion type: [place] artery [place] vs. transplanted heart: [place] heart Associated angina: without angina Qualified Code(s): I25.10 - Atherosclerotic heart disease of [place] coronary artery without angina pectoris (5) GERD (gastroesophageal reflux disease) Code(s): K21.9 - GASTRO-ESOPHAGEAL REFLUX DISEASE WITHOUT ESOPHAGITIS Status: Chronic Qualifiers: Esophagitis presence: esophagitis presence not specified Qualified Code(s) : K21.9 - Gastro-esophageal reflux disease without esophagitis (6) HTN (hypertension) Code(s): I10 - ESSENTIAL (PRIMARY) HYPERTENSION Status: Chronic Qualifiers: Hypertension type: essential hypertension Qualified Code(s): I10 - Essential (primary) hypertension (7) Macrocytic anemia Code(s): D53.9 - NUTRITIONAL ANEMIA, UNSPECIFIED Status: Chronic (8) Protein-calorie malnutrition, moderate Code(s): E44.0 - MODERATE PROTEIN-CALORIE MALNUTRITION Status: Chronic (9) Acute respiratory failure with hypoxia Code(s): J96.01 - ACUTE RESPIRATORY FAILURE WITH HYPOXIA Status: Resolved - Plan deconditioning is getting better, has amb around 110ft with PT -: she lives alone, will need HH with PT and nursing on discharge -: is on ceftriaxone and oral prednisone along with nebs -: dc plan in am * . Review of Systems - Medications/Allergies Allergies/Adverse Reactions: Allergies Allergy/AdvReac Type Severity Reaction Status Date / Time codeine [Codeine] AdvReac Unknown Verified 11/09/15 15:12 Medications: Current Medications Acetaminophen (Tylenol) 650 mg PO Q4H PRN PRN Reason: Headache/Fever or Pain Last Admin: 10/22/17 21:12 Dose: 650 mg Acetaminophen (Tylenol) 650 mg MN Q4H PRN PRN Reason: Headache/Fever or Pain Albuterol/Ipratropium (Duoneb) 3 ml NEB T1CG-SC PRN PRN Reason: SOB &/or Wheezing Albuterol/Ipratropium (Duoneb) 3 ml NEB [id number] [facility] Last Admin: 10/25/17 07:57 Dose: 3 ml Aspirin (Ecotrin) 81 mg PO DAILY [facility] Last Admin: 10/25/17 08:57 Dose: 81 mg Atorvastatin Calcium (Lipitor) 40 mg PO DAILY [facility] Last Admin: 10/25/17 08:57 Dose: 40 mg Carvedilol (Coreg) 6.25 mg PO BID [facility] Last Admin: 10/25/17 08:58 Dose: 6.25 mg Cefuroxime Axetil (Ceftin) 250 mg PO Q12HR [facility] Last Admin: 10/25/17 09:51 Dose: 250 mg Clopidogrel Bisulfate (Plavix) 75 mg PO DAILY [facility] Last Admin: 10/25/17 08:58 Dose: 75 mg Cyanocobalamin (Vitamin B-12) 1,000 mcg PO DAILY [facility] Last Admin: 10/25/17 08:58 Dose: 1,000 mcg Enoxaparin Sodium (Lovenox) 40 mg SC 0900 [facility] Last Admin: 10/25/17 08:58 Dose: 40 mg Famotidine (Pepcid) 20 mg PO BID [facility] Last Admin: 10/25/17 08:58 Dose: 20 mg Folic Acid (Folvite) 1 mg PO DAILY [facility] Last Admin: 10/25/17 08:58 Dose: 1 mg Gabapentin (Neurontin) 300 mg PO BID [facility] Last Admin: 10/25/17 08:57 Dose: 300 mg Iron/Minerals/Multivitamins (Theragran M) 1 tab PO DAILY [facility] Last Admin: 10/25/17 08:58 Dose: 1 tab Lisinopril (Zestril) 5 mg PO BID [facility] Last Admin: 10/25/17 08:58 Dose: 5 mg Mirtazapine (Remeron) 30 mg PO HS [facility] Last Admin: 10/24/17 21:37 Dose: 30 mg Prednisone (Prednisone) 40 mg PO QAM-WM [facility] Last Admin: 10/25/17 08:58 Dose: 40 mg Tramadol HCl (Ultram) 50 mg PO PRN PRN PRN Reason: Pain
--- NOTE | 2017-10-25 17:12 | PRG ---
DATE OF SERVICE: 10/25/2017 SERVICE: Pulmonary Medicine. INTERVAL HISTORY: The patient is doing fine from a respiratory standpoint. She currently denies any fevers or chills. She is essentially returning to her usual state of health. She continues to demonstrate fairly significant weakness. She feels fairly severe symptoms associated with restless leg syndrome. PHYSICAL EXAMINATION: VITAL SIGNS: Afebrile, pulse 84, blood pressure 135/67, respirations 16 and saturation 92% on room air. GENERAL: Patient is awake and alert, in no apparent distress. LUNGS: Decent air entry, but there is a prolonged expiratory phase with polyphonic wheeze. She is moving better air today than yesterday. No crackles or rhonchi are appreciated. HEART: Normal rate and regular. ABDOMEN: Soft, nontender and nondistended. Bowel sounds are positive. MUSCULOSKELETAL: No cyanosis or clubbing. No pitting in the bilateral lower extremities. NEUROLOGIC: Grossly nonfocal. LABORATORY DATA: WBC 11.4, hemoglobin 10.9 and platelets 234,000. Basic metabolic profile is essentially unremarkable. Urinalysis is also unremarkable. Blood cultures x2, urine culture negative to date. ASSESSMENT: 1. Acute hypoxic respiratory failure, resolving. 2. Chronic obstructive pulmonary disease with acute exacerbation. 3. Cognitive impairment, suspected. DISCUSSION AND PLAN: Because of the patient's poor performance on mini mental status exam (could not spell world backwards), serial 7s was 0/5, and three- item recall was 2/3 and she could not orange picker the third word with prompting, I do think that she should be well served by a formal outpatient evaluation of cognitive function. That being said, she continues to make improvements from a respiratory standpoint. We will continue supportive care including antibiotics and steroids. These can be limited to a total duration of 5-7 days. Pulmonary will continue to follow while she remains in house. We will resume her outpatient gabapentin to see if this helps with some of her restless leg symptoms. SENDY
[2017-10-25] MEDS: Mirtazapine 15 MG TAB PO SCH (21:39)
[2017-10-26 08:13] VITALS: BP 129/71; TEMP 98.2
[2017-10-26] MEDS: Famotidine 20 MG TAB PO SCH (08:40)
[2017-10-26] MEDS: Aspirin 81 mg Enteric Coated Tablet PO SCH (08:40)
[2017-10-26] MEDS: predniSONE 20 MG TAB PO SCH (08:40)
[2017-10-26] MEDS: Clopidogrel Bisulfate 75 MG TAB PO SCH (08:40)
[2017-10-26] MEDS: Cyanocobalamin (Vitamin B-12) 1,000 MCG TAB PO SCH (08:40)
[2017-10-26] MEDS: Carvedilol 3.125 MG TAB PO SCH (08:41)
[2017-10-26] MEDS: Cefuroxime Axetil 250 MG TAB PO SCH (08:41)
[2017-10-26] MEDS: Folic Acid 1 MG TAB PO SCH (08:41)
[2017-10-26] MEDS: Multivitamin W/ Minerals 1 TAB PO SCH (08:41)
[2017-10-26] MEDS: Gabapentin 300 MG CAP PO SCH (08:41)
[2017-10-26] MEDS: Lisinopril 5 MG TAB PO SCH (08:41)
[2017-10-26] MEDS: Atorvastatin Calcium 40 MG TAB PO SCH (08:41)
[2017-10-26] MEDS: Enoxaparin Sodium 40 MG/0.4 ML SYRINGE SC SCH (08:43)
--- NOTE | 2017-10-26 15:03 | PDOC.PN ---
- Subjective Encounter Start Date: 10/26/17 Encounter Start Time: 07:45 Subjective: feels better, wants to go home - Objective MAR Reviewed: Yes Vital Signs & Weight: Vital Signs (12 hours) Temp Pulse Resp BP BP Pulse Ox 10/26/17 08:41 81 129/71 10/26/17 08:00 98.2 F 81 16 10/26/17 07:12 98.2 F 81 16 129/71 91 L 10/26/17 06:48 81 15 96 10/26/17 05:19 98.3 F 85 20 106/57 L 97 Weight Admit Weight 104 lb 9.6 oz Weight 104 lb 9.6 oz I&O: 10/25/17 10/26/17 10/27/17 06:59 06:59 06:59 Intake Total 1000 120 Output Total 350 Balance 1000 -230 Result Diagrams: 10/25/17 03:09 10/25/17 03:09 Phys Exam - Physical Examination HEENT: PERRLA, moist MMs Neck: no JVD, supple Respiratory: no wheezing, no rales Cardiovascular: RRR, no significant murmur Gastrointestinal: soft, non-tender, positive bowel sounds Musculoskeletal: no edema, pulses present Neurological: non-focal, moves all 4 limbs Dx/Plan (1) COPD exacerbation Code(s): J44.1 - CHRONIC OBSTRUCTIVE PULMONARY DISEASE W (ACUTE) EXACERBATION Status: Acute (2) Physical deconditioning Code(s): R53.81 - OTHER [place] Status: Acute (3) Anxiety and depression Code(s): F41.8 - OTHER SPECIFIED ANXIETY DISORDERS Status: Chronic (4) CAD (coronary artery disease) Code(s): I25.10 - ATHSCL HEART DISEASE OF [place] CORONARY ARTERY W/O ANG PCTRS Status: Chronic Qualifiers: Coronary Disease-Associated Artery/Lesion type: [place] artery [place] vs. transplanted heart: [place] heart Associated angina: without angina Qualified Code(s): I25.10 - Atherosclerotic heart disease of [place] coronary artery without angina pectoris (5) GERD (gastroesophageal reflux disease) Code(s): K21.9 - GASTRO-ESOPHAGEAL REFLUX DISEASE WITHOUT ESOPHAGITIS Status: Chronic Qualifiers: Esophagitis presence: esophagitis presence not specified Qualified Code(s) : K21.9 - Gastro-esophageal reflux disease without esophagitis (6) HTN (hypertension) Code(s): I10 - ESSENTIAL (PRIMARY) HYPERTENSION Status: Chronic Qualifiers: Hypertension type: essential hypertension Qualified Code(s): I10 - Essential (primary) hypertension (7) Macrocytic anemia Code(s): D53.9 - NUTRITIONAL ANEMIA, UNSPECIFIED Status: Chronic (8) Protein-calorie malnutrition, moderate Code(s): E44.0 - MODERATE PROTEIN-CALORIE MALNUTRITION Status: Chronic (9) Acute respiratory failure with hypoxia Code(s): J96.01 - ACUTE RESPIRATORY FAILURE WITH HYPOXIA Status: Resolved - Plan hemostable -: is on ceftin and oral prednisone to taper on dc -: dc pt home with HH/PT/Nursing -: nebulizer machine for home use * .
--- NOTE | 2017-10-26 22:07 | DIS ---
DATE OF ADMISSION: 10/22/2017 DATE OF DISCHARGE: 10/26/2017 DISCHARGE DISPOSITION: To home with home health. PRIMARY DISCHARGE DIAGNOSIS: Chronic obstructive pulmonary disease exacerbation, resolving. SECONDARY DISCHARGE DIAGNOSES: Coronary artery disease; gastroesophageal reflux disease; hypertensio n; macrocytic anemia; moderate protein malnutrition; initial acute respiratory failure with hypoxia, resolved; deconditioning. PROCEDURES DONE DURING HOSPITALIZATION: Chest x-ray done showed chronic lung changes with no acute i nfiltrate. There was osteopenia. Blood cultures x2 no growth. Urine culture no growth. Influenza A and B antigens were negative. H&H 11 and 33, platelet count 234, albumin 3.2. DISCHARGE MEDICATIONS: Ceftin 250 mg p.o. twice daily for another 3 days, prednisone tapering dose s tarting at 10 mg over a course of 7 days and to discontinue, Ultram p.r.n. for pain, lisinopril 5 mg twice daily, Remeron 30 mg daily, multivitamin 1 tab daily, DuoNebs q.6 hourly, Neurontin 300 mg twic e daily, folic acid 1 mg daily, ferrous sulfate 325 mg daily, Pepcid 20 mg twice daily, vitamin B12 1 000 mcg p.o. daily, Plavix 75 mg daily, Coreg 6.25 mg twice daily, Lipitor 40 mg p.o. daily, aspirin 81 mg p.o. daily. ALLERGIES: CODEINE. INPATIENT CONSULTS: Dr. Ryan/Octavio for Pulmonology. DISCHARGE PLAN: Patient to follow up with primary care physician in one week and Dr. Cunningham in 4 we eks. BRIEF COURSE DURING HOSPITALIZATION: The patient initially got admitted with complaints of shortness of breath. She was essentially admitted for acute COPD exacerbation. Patient has had consultation with Dr. Cunningham. She was placed on steroids and IV antibiotics along with DuoNebs. She has respond ed well to above measures. She is on tapering steroids and needs to continue Ceftin as prescribed. The patient lives alone, and in view of this with deconditioning, home health with PT and OT will be arranged at home. She is hemodynamically stable and has been cleared by Dr. Cunningham for discharge. Please see a [id number] documentation on [facility] for the day of discharge.
--- NOTE | 2017-11-28 14:09 | EKG ---
Test Reason : Blood Pressure : / mmHG Vent. Rate : 105 BPM Atrial Rate : 105 BPM P-R Int : 136 ms QRS Dur : 088 ms QT Int : 336 ms P-R-T Axes : 075 060 075 degrees QTc Int : 444 ms Sinus tachycardia Left ventricular hypertrophy with repolarization abnormality Abnormal ECG Confirmed by BON NEWSOME, SUAD Álvarez ([id number]), online content editor CHARLY WEI ([id number]) on 11/28/2017 2:09:29 PM Referred By: Confirmed By:SUAD CROCKETT MD
== END 2017-10-26 11:50 | disposition home health service (06) | DRG 189 ==
LOC: ERS 14:39 → IMCU/EMU 17:43 → T4-A 10-23 18:02
PROVIDERS: ADMIT Internal Medicine; ATTEND Internal Medicine
PROC: 5A09357 Assistance with Respiratory Ventilation, Less than 24 Consecutive Hours, Continuous Positive Airway Pressure (ICD-10-PCS; principal; 2017-10-22)
DX: J96.21 Acute and chronic respiratory failure with hypoxia (principal); E44.0 Moderate protein-calorie malnutrition; E87.1 Hypo-osmolality and hyponatremia; J44.1 Chronic obstructive pulmonary disease with (acute) exacerbation; G62.9 Polyneuropathy, unspecified; Z68.1 Body mass index [BMI] 19.9 or less, adult; D53.9 Nutritional anemia, unspecified; I10 Essential (primary) hypertension; I25.10 Atherosclerotic heart disease of native coronary artery without angina pectoris; I25.2 Old myocardial infarction; Z95.5 Presence of coronary angioplasty implant and graft; I25.5 Ischemic cardiomyopathy; F32.9 Major depressive disorder, single episode, unspecified; F41.9 Anxiety disorder, unspecified; M81.0 Age-related osteoporosis without current pathological fracture; Z91.81 History of falling; G89.4 Chronic pain syndrome; K21.9 Gastro-esophageal reflux disease without esophagitis; Z86.010 Personal history of colon polyps; Z88.5 Allergy status to narcotic agent; Z66 Do not resuscitate; G31.84 Mild cognitive impairment of uncertain or unknown etiology; G25.81 Restless legs syndrome; M85.80 Other specified disorders of bone density and structure, unspecified site; Z79.01 Long term (current) use of anticoagulants; R53.81 Other malaise; E78.5 Hyperlipidemia, unspecified
CPT/HCPCS: 36415; 51701; 71010; 80048; 80053; 81003; 81015; 83605; 85025; 85379; 87040; 87086; 93005; 94640; 96361; 96365; 96375; A4216; A4353; G8978-GP-CI; G8979-GP-CI; G8980-GP-CI; G8987-GO-CJ; G8988-GO-CH; J0456; J0696; J1650; J2405; J7050; J7506; J7620

== ENCOUNTER 2018-01-31 15:17 | Inpatient (IN) | payer MEDICARE, OTHER ==
--- NOTE | 2018-01-31 16:01 | RAD ---
RIGHT HIP: 01/31/18 Two views obtained. HISTORY: Fell at home with injury to hip. There is a mildly displaced fracture at the base of the femoral neck. IMPRESSION: Right hip fracture as described. POS: [facility]
[2018-01-31 18:06] LABS: #Basophils 0.1 thou/uL (0.0-0.2); #Eosinphils 0.1 thou/uL (0.0-0.7); #Lymphocytes 1.5 thou/uL (1.20-3.40); #Monocytes 0.6 thou/uL (0.11-0.59); #Neutrophils 4.9 thou/uL (1.40-6.50); %Basophils 0.8 % (0.0-1.0); %Eosinophils 1.6 % (0.0-10.0); %Lymphocytes 20.7 % (21.0-51.0); %Monocytes 8.8 % (0.0-10.0); Hemoglobin 11.9 g/dL (12.0-16.0); Mean Corpuscular HGB CONC 32.3 g/dL (32.0-36.0); Mean Corpuscular Hemoglobin 31.9 pg (27.0-31.0); Mean Corpuscular Volume 98.9 fl (81.0-99.0); Mean Platelet Volume 8.6 fL (7.4-10.4); Platelet Count 148 thou/uL (130-400); RBC Distribution Width 14.5 % (11.5-14.5); Red Blood Cell (RBC) Count 3.73 mill/uL (4.20-5.40); White Blood Cell (WBC) Count 7.1 thou/uL (4.8-10.8)
[2018-01-31 18:10] LABS: Bilirubin Negative (Negative); Blood, Urine Negative (Negative); Clarity CLEAR (Clear); Glucose, Urine (Dipstick) Negative (Negative); Leukocyte Moderate (Negative); Nitrite Negative (Negative); Protein, Urine (Dipstick) Negative (Neg-Trace); Specific Gravity, Urine 1.007 (1.002-1.036); Urobilinogen 0.2 mg/dL (0.2-1.0); pH, Urine 7.5 (5.0-9.0)
[2018-01-31] MEDS ORDERED: Morphine 2 MG/ML SYRINGE ONE ×3 (18:10→20:09)
[2018-01-31 18:13] LABS: Bacteria/HPF None Seen HPF (None Seen); Hyaline Casts/LPF 0-3 HYALINE CAST LPF (0-3 Hyaline); Squamous Epithelial 0-3 HPF (0-3)
[2018-01-31 18:13] LABS: PTT 28.8 SEC (22.9-36.1); Prothrombin Time 12.8 SEC (12.0-14.7)
[2018-01-31 18:16] LABS: Yeast-AUWi Flag 135.6 (0-25.0)
[2018-01-31 18:27] LABS: Yeast-All Forms None Seen HPF (None Seen)
[2018-01-31 18:45] LABS: ALT (SGPT) 15 U/L (8-55); AST (SGOT) 22 U/L (5-34); Albumin 3.7 g/dL (3.4-4.8); Alkaline Phosphatase 86 U/L (40-150); Anion Gap 12 mmol/L (10-20); BUN (Urea Nitrogen) 9 mg/dL (9.8-20.1); Bilirubin, Total 0.3 mg/dL (0.2-1.2); CK (CPK) 40 U/L (29-168); Calc. Creatinine Clearance 0 mL/min (70-130); Calcium 9.1 mg/dL (7.8-10.44); Carbon Dioxide 29 mmol/L (23-31); Chloride 103 mmol/L (98-107); Estimated GFR-MDRD 81; Globulin 2.6 g/dL (2.4-3.5); Glucose 82 mg/dL (83-110); Potassium 4.5 mmol/L (3.5-5.1); Protein, Total 6.3 g/dL (6.0-8.3); Sodium 139 mmol/L (136-145)
--- NOTE | 2018-01-31 19:32 | RAD ---
CHEST ONE VIEW 01/31/18 HISTORY: Fall. COMPARISON: Chest one view 10/22/17. FINDINGS: Lungs are hyperinflated. Calcified granulomas. Chronic pleural and parenchymal changes. Mild degenerative disease acromioclavicular joints. There is cement within the lower thoracic vertebral column as well as a nearly complete height loss o f the mid thoracic vertebral body. IMPRESSION: 1. No acute intrathoracic abnormality. 2. Multiple spinal compression fractures. POS: [facility]
--- NOTE | 2018-01-31 19:41 | RAD ---
PELVIS ONE VIEW 01/31/18 HISTORY: Fall, hip pain. COMPARISON: None. FINDINGS: Intertrochanteric fracture right femur. Mild valgus angulation. Femoral neck itself appears to be int act. Fractures of the left superior and inferior pubic rami. This occurs near the pubic body. Likely sacral insufficiency fractures. IMPRESSION: 1. Intertrochanteric fracture right femur. Femoral neck appears to be intact. 2. Fractures of the left superior and inferior pubic rami near the pubic body. 3. Old right superior pubic ramus fracture and inferior pubic ramus fracture. 4. Likely sacral insufficiency fractures. POS: [facility]
--- NOTE | 2018-01-31 19:42 | RAD ---
RIGHT FEMUR TWO VIEW 01/31/18 HISTORY: Fall, hip pain. COMPARISON: None. FINDINGS: Intertrochanteric fracture of the right femur. Distal femur appears to be intact. IMPRESSION: Intertrochanteric fracture of the right femur. POS: [facility]
[2018-01-31] MEDS ORDERED: HYDROcodone/Acetaminophen 5/325 mg Tablet PO PRN ×2 (20:32)
[2018-01-31] MEDS ORDERED: Acetaminophen 325 MG TAB PO PRN (20:32)
[2018-01-31] MEDS ORDERED: Ondansetron HCl/PF 4 MG/2 ML Vial IVP PRN (20:32)
[2018-01-31] MEDS ORDERED: Ondansetron ODT 4 MG TAB SL PRN (20:32)
[2018-02-01] MEDS ORDERED: CEFAZOLIN/Water 2 GM/20 ML SYRINGE SLOW IVP SCH (00:01)
[2018-02-01] MEDS ORDERED: Nitroglycerin 0.4 MG TAB (25 Tab Bottle) SL PRN (02:05)
[2018-02-01] MEDS ORDERED: Acetaminophen 325 MG TAB PO PRN (02:05)
[2018-02-01] MEDS ORDERED: Ondansetron HCl/PF 4 MG/2 ML Vial IVP PRN ×2 (02:05→14:28)
[2018-02-01] MEDS ORDERED: Diabetic Tussin 200 MG/10 ML UDCUP PO PRN (02:05)
[2018-02-01] MEDS ORDERED: Benzonatate 100 MG CAP PO PRN (02:05)
[2018-02-01] MEDS ORDERED: HYDROcodone/Acetaminophen 5/325 mg Tablet PO PRN (02:05)
[2018-02-01] MEDS ORDERED: Calcium Carbonate 500 MG ChewTAB PO PRN (02:05)
[2018-02-01] MEDS ORDERED: Milk Of Magnesia 30 ML UDCUP PO PRN (02:05)
[2018-02-01] MEDS ORDERED: hydrALAZINE 20 MG/ML VIAL SLOW IVP PRN (02:05)
[2018-02-01] MEDS ORDERED: Loratadine 10 MG TAB PO PRN (02:05)
[2018-02-01] MEDS ORDERED: Lorazepam 2 MG/ML VIAL SLOW IVP PRN (02:05)
[2018-02-01] MEDS ORDERED: cloNIDine 0.1 MG TAB PO PRN (02:05)
[2018-02-01] MEDS ORDERED: Senokot 8.6 MG TAB PO PRN (02:05)
[2018-02-01] MEDS ORDERED: Mag-Al 1200 mg/1200 mg/30 ML UDCUP PO PRN (02:05)
[2018-02-01] MEDS ORDERED: Bisacodyl 5 MG TAB PO PRN (02:05)
[2018-02-01] MEDS ORDERED: Melatonin 3 MG TAB PO PRN (02:38)
[2018-02-01] MEDS: Sodium Chloride 0.9% 1,000 ML IV SCH ×2 (02:46→23:24)
--- NOTE | 2018-02-01 03:22 | HP ---
PRIMARY CARE PHYSICIAN: Dr. Johana Reina. CHIEF COMPLAINT: Fall and fracture of right femur. Internal medicine team is admitting for trauma t [facility] for coverage. HISTORY OF PRESENTING ILLNESS: Ms. Guzman is a very pleasant 77-year-old female with past medical his tory of COPD, coronary artery disease, dyslipidemia, peripheral neuropathy, who presented to the [facility] room with the above-mentioned complaint. History is mainly obtained by the patient herself. E lectronic medical records have been reviewed. Ms. Guzman reports that she lives alone and today while walking in the home, she tripped over her cat and fell on the floor. She landed on her right side and started to have significant amount of right hip and right lower extremity pain and presented to the ER with the help of the EMS. Upon presentation to the emergency room, she was hemodynamically stable except for blood pressure didier vated at 173/100. She underwent a series of imaging studies, which revealed right femoral neck fract ure. She is now being admitted for further evaluation and care and Orthopedics has been notified abo ut patient in the hospital. She is scheduled for possible surgery tentatively in the morning. Inter nal medicine team has been asked to admit this patient for Orthopedics and trauma teams. PAST MEDICAL HISTORY: 1. COPD. 2. Coronary artery disease, status post stenting. 3. Hypertension. 4. Dyslipidemia. 5. Protein-calorie malnutrition. 6. Depression. 7. Anxiety. 8. Osteoporosis. 9. Frequent falls. 10. History of ischemic cardiomyopathy. 11. Colonic polyps. 12. Chronic pain syndrome. 13. Gastroesophageal reflux disease. PAST SURGICAL HISTORY: 1. Open reduction and internal fixation, right hip fracture. 2. Hysterectomy. 3. Cervical spine laminectomy. 4. Appendectomy. 5. Cholecystectomy. 6. L5 medial facetectomy and laminectomy in 2008. 7. T11-T12 compression fracture with kyphoplasty. 8. C4-C7 anterior cervical diskectomy. 9. Cardiac catheterization with PCI. FAMILY HISTORY: She was adopted and cannot corroborate any family history. SOCIAL HISTORY: She lives by herself. No history of drug, tobacco, or alcohol abuse. PSYCHIATRIC HISTORY: Anxiety and depression. ALLERGIES: CODEINE. HOME MEDICATIONS: As follows Fosamax 70 mg every 7 days, ropinirole 0.25 mg daily, Neurontin 300 mg p.o. b.i.d., Plavix 75 mg daily, Coreg 6.25 mg b.i.d., Lipitor 40 mg daily, aspirin 81 mg daily, Renetta gayle 30 mg daily, lisinopril 5 mg p.o. b.i.d., tramadol b.i.d. p.r.n. REVIEW OF SYSTEMS: The following complete review of systems was negative, except for those mentioned in the history and physical: Constitutional: Weight loss or gain, ability to conduct usual activit ies. Skin: Rash, itching. Eyes: Double vision, pain. ENT/Mouth: Nose bleeding, neck stiffness, pain, tenderness. Cardiovascular: Palpitations, dyspnea on exertion, orthopnea. Respiratory: Shor tness of breath, wheezing, cough, hemoptysis, fever, or night sweats. Gastrointestinal: Poor appeti te, abdominal pain, heartburn, nausea, vomiting, constipation, or diarrhea. Genitourinary: Urgency, frequency, dysuria, nocturia. Musculoskeletal: Pain, swelling. Neurologic/Psychiatric: Anxiety, depression. Allergy/Immunologic: Skin rash, bleeding tendency. LABORATORY DATA: CBC shows hemoglobin of 11.9, otherwise unremarkable. Coagulation studies within n ormal limits. Serum chemistries unremarkable. Blood sugar 82. Urinalysis show moderate leukocyte e sterase and 4-6 wbcs. Chest x-ray by my review shows no atelectasis or infiltrates. Multiple spinal compression fractures noticed. X-ray of the femur and pelvis is consistent with right femoral intertrochanteric fracture. PHYSICAL EXAMINATION: VITAL SIGNS: Most recent vital signs temperature 97.5, pulse of 68, respirations 16, saturating 97% on room air, blood pressure 124/71. GENERAL: No acute distress, awake, alert, oriented x3. HEENT: Mucous membranes slightly dry. No oropharyngeal exudate or erythema. Head is normocephalic, atraumatic. Pupils are equal, reactive to light and accommodation. Extraocular movement intact. NECK: Supple without any lymphadenopathy, JVD, or bruit. CHEST: Clear to auscultation without any wheezing, rales, or rhonchi. Rare and rhythm is regular wi thout any murmur, rubs, or gallops. ABDOMEN: Soft, nontender, nondistended with positive bowel sounds. EXTREMITIES: Free of any cyanosis, clubbing, or edema. She has limited range of motion of the right leg because of the pain. Pedal pulses felt normally both legs. NEUROLOGIC: Nonfocal. SKIN: Free of any rashes or bruises. Feels warm and dry to touch. PSYCHIATRIC: Normal affect. Awake, alert, oriented x3. IMPRESSION AND PLAN: 1. Displaced fracture of the right femoral neck. She is n.p.o. at this time. We will continue pain medication as needed. Orthopedics has been consulted with the [facility] We will add OT, PT. At this time, hold aspirin and Plavix in light of need for surgery in t he morning. Resume her beta donato under postoperatively. She is currently hemodynamically stable. 2. Possible early urinary tract infection. At this time, we will send the urine for culture and kylie it the culture sensitivities before starting any antibiotics. The patient does not endorse any histo ry of dysuria, frequency, urgency, or hematuria. 3. History of chronic obstructive pulmonary disease. She is currently compensated. We will add neb ulizers as needed. 4. History of coronary artery disease. Continue her beta donato and LALITA inhibitor. Restart her as pirin and Plavix only after surgery. 5. Multiple falls, fractures, and osteoarthritis. The patient will benefit from some sort of assist ed living. We will have the case briefer look for her family and maybe discharge her to rehabilitati on at this time with long-term plans for assisted living facility. 6. History of gastroesophageal reflux disease. We will add Pepcid b.i.d. 7. Deep venous thrombosis and gastrointestinal prophylaxis. DISPOSITION: Ms. Guzman is being admitted for fall leading to femoral right-sided fracture. She is c urrently hemodynamically stable. Estimated length of stay is at least 2-3 midnight. Further managem ent will depend upon her clinical course.
--- NOTE | 2018-02-01 03:56 | CON ---
DATE OF CONSULTATION: 01/31/2018 CHIEF COMPLAINT: Right hip pain. HISTORY OF PRESENT ILLNESS: Ms. Guzman is a 76-year-old female who fell at home today. She tripped o n a cat. She landed on her right side. She had immediate pain in the right hip and was unable to am bulate. She was taken to the hospital by EMS. Upon evaluation, she has been found to have a right b asicervical femoral neck fracture with displacement. She has been having pain in the hip, but has re ceived pain medication. She has a history of left total hip arthroplasty and subsequent revision. S he has an extensive medical history. She is on tramadol daily. She lives independently, but lives a lone. PAST MEDICAL HISTORY: Coronary artery disease status post coronary artery stenting in 2014, cardiomy opathy, obstructive lung disease, hypertension, anxiety, chronic pain, gastroesophageal reflux, osteo porosis. PAST SURGICAL HISTORY: Previous left total hip arthroplasty, multiple cervical surgeries, hysterectomy, cholecystectomy, kyp hoplasty of the thoracic spine. Previous lumbar surgery. SOCIAL HISTORY: The patient denies tobacco, alcohol, or drug use. ALLERGIES: CODEINE. FAMILY MEDICAL HISTORY: Noncontributory. PHYSICAL EXAMINATION: GENERAL: The patient is alert, lying supine in no apparent distress. HEENT: Normocephalic, atraumatic. RESPIRATORY: Breathing comfortably. ABDOMEN: Soft, nontender, nondistended. MUSCULOSKELETAL: The patient's right hip has pain with any motion and spasm. She is able to flex an d extend the toes. Warm and well perfused foot. Palpable dorsalis pedis pulse. She has a superfici al abrasion over her knee. Otherwise, skin is intact. She is shortened and externally rotated at th e leg. IMAGES: X-rays of the pelvis and hip demonstrate a displaced femoral neck fracture of the right hip. IMPRESSION: Right femoral neck fracture in an elderly female. PLAN: At this point, the patient will be admitted to the Hospitalist Service for medical optimizatio n and pain control. She will need operative intervention. I will plan for hemiarthroplasty of the r ight hip to be done tomorrow. She is aware of risks and benefits of the surgery. Goal is early mobi lization to prevent complications of prolonged bed rest. She will have adequate pain control tonight . She will have DVT prophylaxis and antibiotic prophylaxis for surgery tomorrow. Questions have bee n answered. She should be n.p.o. at midnight.
[2018-02-01 04:59] LABS: #Eosinphils 0.1 thou/uL (0.0-0.7); #Lymphocytes 1.5 thou/uL (1.20-3.40); #Monocytes 0.6 thou/uL (0.11-0.59); #Neutrophils 2.9 thou/uL (1.40-6.50); %Basophils 0.2 % (0.0-1.0); %Eosinophils 1.9 % (0.0-10.0); %Lymphocytes 29.1 % (21.0-51.0); %Monocytes 11.8 % (0.0-10.0); Hemoglobin 9.9 g/dL (12.0-16.0); Mean Corpuscular HGB CONC 32.4 g/dL (32.0-36.0); Mean Corpuscular Hemoglobin 32.1 pg (27.0-31.0); Mean Corpuscular Volume 99.1 fl (81.0-99.0); Mean Platelet Volume 8.4 fL (7.4-10.4); Platelet Count 118 thou/uL (130-400); RBC Distribution Width 14.6 % (11.5-14.5); Red Blood Cell (RBC) Count 3.09 mill/uL (4.20-5.40)
[2018-02-01 05:06] LABS: Anion Gap 8 mmol/L (10-20); BUN (Urea Nitrogen) 9 mg/dL (9.8-20.1); Calc. Creatinine Clearance 58 mL/min (70-130); Calcium 8.7 mg/dL (7.8-10.44); Carbon Dioxide 31 mmol/L (23-31); Chloride 104 mmol/L (98-107); Estimated GFR-MDRD 90; Glucose 103 mg/dL (83-110); Potassium 4.2 mmol/L (3.5-5.1); Sodium 139 mmol/L (136-145)
[2018-02-01] MEDS: traMADol HCl 50 MG TAB PO PRN ×2 (05:18→20:23)
[2018-02-01] MEDS ORDERED: Fentanyl 100 MCG/2 ML VIAL SLOW IVP PRN (08:09)
[2018-02-01] MEDS ORDERED: Alendronate Sodium 70 mg Tablet PO SCH (09:00)
[2018-02-01] MEDS: Atorvastatin Calcium 40 MG TAB PO SCH (09:54)
[2018-02-01] MEDS: Enoxaparin Sodium 40 MG/0.4 ML SYRINGE SC SCH (09:54)
[2018-02-01] MEDS: Carvedilol 3.125 MG TAB PO SCH ×2 (09:54→20:21)
[2018-02-01] MEDS: rOPINIRole HCl 0.25 MG TAB PO SCH (09:55)
[2018-02-01] MEDS: Lisinopril 5 MG TAB PO SCH ×2 (09:55→20:21)
[2018-02-01] MEDS: Mirtazapine 15 MG TAB PO SCH (09:55)
[2018-02-01] MEDS: Famotidine 20 MG TAB PO SCH ×2 (09:55→20:21)
[2018-02-01] MEDS: Gabapentin 300 MG CAP PO SCH ×2 (09:55→20:21)
[2018-02-01] MEDS ORDERED: CEFAZOLIN/Water 2 GM/20 ML SYRINGE ONE (11:42)
[2018-02-01] MEDS ORDERED: Fentanyl 250 MCG/5 ML VIAL ONE ×2 (12:36→14:38)
[2018-02-01] MEDS ORDERED: Morphine Sulfate 2 MG/ML SYRINGE SLOW IVP PRN (14:28)
[2018-02-01] MEDS ORDERED: Promethazine HCl 25 MG/ML VIAL IM PRN (14:28)
[2018-02-01] MEDS ORDERED: Promethazine HCl 25 MG/ML VIAL SLOW IVP PRN (14:28)
--- NOTE | 2018-02-01 14:30 | OP ---
DATE OF OPERATION: 02/01/2018 PREOPERATIVE DIAGNOSIS: Right femoral neck fracture. POSTOPERATIVE DIAGNOSIS: Right femoral neck fracture. COMPLICATIONS: None. ESTIMATED BLOOD LOSS: 150 mL SURGEON: Ko Cadena M.D. ANESTHESIA: General. EDUCATIONAL MANAGER: Caitlin Murray PA-C IMPLANTS: DePuy basic [place] stem size 7 cemented, size 45 mm bipolar shell with a +12 28 mm femoral head. INDICATIONS: Ms. Guzman is a 77-year-old female who fell. She sustained a fracture of the right femo ral neck. It was decided to proceed with cemented hemiarthroplasty of the hip to restore function an d relief pain. Because of her severe osteoporosis, we have elected to replace the femoral head rathe r than try fixation. She has elected to proceed with this. She is aware of risks including instabil ity, infection, nerve or vascular injury, DVT, PE, medical complication and others. DESCRIPTION OF PROCEDURE: Ms. Guzman was identified in the preoperative holding area. Her correct ex tremity was marked. She was carried to the operating room. She was positioned supine. General anes thesia was induced. A multidisciplinary timeout was performed. The right lower extremity was preppe d and draped in sterile fashion. We began the procedure with a posterior approach to the hip. We di ssected down to the subcutaneous tissue to the fascia, which was incised. We exposed the underlying short external rotators. These were subperiosteally divided from the proximal femur. At this point, we removed the femoral head and bony fragments from the femoral neck fracture. The fracture did ext end distally down to the level of the lesser trochanter. We irrigated thoroughly. At this point, we prepared the femur. We entered the intramedullary canal of the femur. We then reamed up to a size 7 reamer. This was followed by broaching also to a size 7. This gave stability. We then thoroughly irrigated with copious lavage and placed our cement restrictor. We then placed our cement after mix ing on the back table. A size 7 cemented stem was placed and held into appropriate anteversion and h eight while this cement had fully hardened. At this point, we trialed. A +12 head was appropriate f or length and stability. We accepted this and placed our final bipolar shell. We reduced the hip on ce more. The hip was very stable throughout a full arc of motion. At this point, we closed the post erior capsule and external rotators; however, there was limited tissue for closure because the greate r trochanter was severely comminuted. We thoroughly irrigated once more. We then closed the fascia and subcutaneous tissue as well as skin appropriately. A sterile dressing was applied. The patient was taken to the recovery room in good condition at this point without complication.
[2018-02-01] MEDS ORDERED: Promethazine HCl 25 MG/ML VIAL ONE (15:16)
[2018-02-01] MEDS ORDERED: Propofol 200 MG/20 ML VIAL ONE (15:22)
[2018-02-01] MEDS ORDERED: Dexamethasone 20 MG/5 ML VIAL ONE (15:22)
[2018-02-01] MEDS ORDERED: PHENYLEPHRINE-NS 100 MCG/ML 10 ML SYRINGE ONE (15:22)
[2018-02-01] MEDS ORDERED: Lidocaine 1% PF 5 ML VIAL ONE (15:22)
[2018-02-01] MEDS ORDERED: ePHEDrine/0.9% NaCl/PF SYRINGE 50 mg/10 ml ONE (15:22)
[2018-02-01] MEDS ORDERED: Ondansetron HCl/PF 4 MG/2 ML Vial ONE (15:22)
[2018-02-01] MEDS ORDERED: Acetaminophen 325 MG TAB PO SCH (15:30)
--- NOTE | 2018-02-01 15:59 | PRG ---
POSTOPERATIVE PROGRESS NOTE DATE OF SERVICE: 02/01/2018 SUBJECTIVE: Ms. Guzman is a 77-year-old woman, status post ground level fall, sustaining a right femo ral neck fracture. The patient underwent an uneventful ORIF of the right femoral neck fracture. Postoperatively, she is awake, alert and reports right hip pain, relieved with intravenous analgesics . She moves all extremities and answers questions appropriately. She is clearly oriented to person, place and time. Her [place] Coma Scale right now is [id number]. OBJECTIVE: VITAL SIGNS: Includes blood pressure 110/43, pulse 87, respiratory rate is 18, temperature is 36.5 d egrees centigrade. Oxygen saturation is 99% on 2 liters by nasal cannula oxygen. HEENT: Reveals normocephalic and atraumatic. Pupils are equally round and reactive to light and acc ommodation. Extraocular muscles are intact bilaterally. She has no sclerae icterus present. Oral m ucosa is pink and moist. No lesions are noted. NECK: Supple. No palpable lymphadenopathy or thyromegaly present. HEART: Reveals regular rate and rhythm. No murmurs or gallops auscultated. LUNGS: Clear to auscultation bilaterally. Her breathing is regular and unlabored. ABDOMEN: Soft, nontender and nondistended. Liver and spleen are nonpalpable below costal margins. EXTREMITIES: Reveals 2+ radial and pedal pulses bilaterally. She has no ankle edema present. NEUROLOGIC: Reveals no focal deficits present. LABORATORY FINDINGS: Today includes metabolic profile: Sodium 139, potassium is 4.2, chloride is 10 4, bicarbonate 31, BUN and creatinine 9 and 0.64 respectively. Glucose 103. CBC with 5000 white blood cells, hemoglobin and hematocrit 9.9 and 30.7 respectively, platelet count is 118,000. IMPRESSION: 1. Status post ground level fall with right femoral neck fracture. 2. Postoperative day #0, status post open reduction and internal fixation of the right femoral neck fracture. 3. Coronary arterial disease, status post coronary arterial stenting. 4. History of essential hypertension. 5. History of chronic pain syndrome. PLAN: 1. Optimize pain management and try to minimize sedation. 2. Initiate physical and occupational therapy. 3. We will ask PM&R to evaluate the patient for possible inpatient rehabilitation. 4. Continue with chemical VTE prophylaxis using enoxaparin. 5. By tomorrow, once patient is tolerating oral intake, we will resume aspirin and Plavix. The above findings and plan discussed with the patient who indicates understanding of the information given. I have answered her questions.
--- NOTE | 2018-02-01 16:05 | RAD ---
AP PELVIS 1 VIEW: HISTORY: Hip replacement. COMPARISON: 01/31/18. FINDINGS: Bilateral hip prostheses are now in place. No perihardware lucencies. Gas and skin kayce overlie the right hip. Osseous structures are demineralized. IMPRESSION: 1. Right hip prosthesis is in good radiographic position. 2. Osteoporosis. POS: [facility]
--- NOTE | 2018-02-01 16:05 | RAD ---
RIGHT HIP 1 VIEW: HISTORY: Right hip prosthesis is in place without perihardware lucency. Skin kayce and soft tissue gas are apparent. IMPRESSION: Right hip prosthesis in good radiographic position. POS: [facility]
[2018-02-01] MEDS: Morphine 2 MG/ML SYRINGE SLOW IVP PRN (18:54)
[2018-02-01] MEDS: Acetaminophen 500 MG TAB PO SCH (20:31)
[2018-02-01] MEDS: CEFAZOLIN/Water 2 GM/20 ML SYRINGE SLOW IVP SCH (21:13)
[2018-02-02] MEDS: traMADol HCl 50 MG TAB PO PRN ×3 (01:47→22:07)
[2018-02-02] MEDS: Acetaminophen 500 MG TAB PO SCH ×4 (01:48→22:08)
[2018-02-02] MEDS: CEFAZOLIN/Water 2 GM/20 ML SYRINGE SLOW IVP SCH (03:34)
[2018-02-02] MEDS: Morphine 2 MG/ML SYRINGE SLOW IVP PRN ×2 (03:39→22:19)
[2018-02-02 04:43] LABS: Anion Gap 9 mmol/L (10-20); BUN (Urea Nitrogen) 6 mg/dL (9.8-20.1); Calc. Creatinine Clearance 54 mL/min (70-130); Calcium 8.1 mg/dL (7.8-10.44); Carbon Dioxide 28 mmol/L (23-31); Chloride 103 mmol/L (98-107); Estimated GFR-MDRD 84; Glucose 140 mg/dL (83-110); Magnesium 1.8 mg/dL (1.6-2.6); Phosphorus 3.1 mg/dL (2.3-4.7); Potassium 4.3 mmol/L (3.5-5.1); Sodium 136 mmol/L (136-145)
[2018-02-02 05:10] LABS: Band 5 % (5-11); Eosinophils 1 % (0-10); Hemoglobin 8.5 g/dL (12.0-16.0); Lymphocytes 11 % (21-51); MDiff Complete? YES; Macrocytosis SLIGHT = 6-15 cells (100X) (0-5/hpf); Mean Corpuscular HGB CONC 32.6 g/dL (32.0-36.0); Mean Corpuscular Hemoglobin 32.4 pg (27.0-31.0); Mean Corpuscular Volume 99.3 fl (81.0-99.0); Mean Platelet Volume 8.6 fL (7.4-10.4); Monocytes 11 % (0-10); Neutrophil 72 % (42-75); PLT Morphology Comment Appears Adequate; Platelet Count 123 thou/uL (130-400); RBC Distribution Width 14.5 % (11.5-14.5); Red Blood Cell (RBC) Count 2.61 mill/uL (4.20-5.40); White Blood Cell (WBC) Count 8.9 thou/uL (4.8-10.8)
[2018-02-02] MEDS: Ferrous Sulfate 325 MG TAB PO SCH ×2 (09:00→16:56)
[2018-02-02] MEDS: Lisinopril 5 MG TAB PO SCH (09:01)
[2018-02-02] MEDS: Ascorbic Acid 500 mg Chewable Tablet PO SCH ×2 (09:01→16:56)
[2018-02-02] MEDS: Carvedilol 3.125 MG TAB PO SCH (09:01)
[2018-02-02] MEDS: Atorvastatin Calcium 40 MG TAB PO SCH (09:01)
[2018-02-02] MEDS: Gabapentin 300 MG CAP PO SCH ×2 (09:01→22:06)
[2018-02-02] MEDS: Famotidine 20 MG TAB PO SCH ×2 (09:03→22:08)
[2018-02-02] MEDS: Mirtazapine 15 MG TAB PO SCH (09:03)
[2018-02-02] MEDS: Polyethylene Glycol 3350 17 GM Packet PO SCH (09:03)
[2018-02-02] MEDS: Enoxaparin Sodium 40 MG/0.4 ML SYRINGE SC SCH (09:03)
[2018-02-02] MEDS: rOPINIRole HCl 0.25 MG TAB PO SCH (09:06)
--- NOTE | 2018-02-02 12:38 | PDOC.PN ---
- Subjective Encounter Start Date: 02/02/18 Encounter Start Time: 12:38 Subjective: No new complaints. Post op day 1 -: No acute events overnight. - Objective MAR Reviewed: Yes Vital Signs & Weight: Vital Signs (12 hours) Temp Pulse Resp BP BP BP Pulse Ox 02/02/18 11:45 97.3 F L 87 20 92/55 L 98 02/02/18 11:03 97 02/02/18 10:44 97 02/02/18 09:01 84 117/73 02/02/18 04:57 97.9 F 90 16 104/54 L 97 Weight Weight 109 lb 9.116 oz I&O: 02/01/18 02/02/18 02/03/18 06:59 06:59 06:59 Intake Total 450 1140 Output Total 1200 1300 Balance -750 -160 Result Diagrams: 02/02/18 03:57 02/02/18 03:57 Phys Exam - Physical Examination Constitutional: NAD HEENT: PERRLA, moist MMs, sclera anicteric Neck: no JVD, supple, full ROM Respiratory: no wheezing, no rales, no rhonchi, clear to auscultation bilateral Cardiovascular: RRR, no significant murmur, no rub Musculoskeletal: no edema, pulses present R hip surgical site covered in clean dry dressing Neurological: non-focal Alert, well oriented Psychiatric: normal affect, A&O x 3 Skin: no rash, normal turgor Dx/Plan (1) COPD (chronic obstructive pulmonary disease) Status: Acute Qualifiers: COPD type: unspecified COPD Qualified Code(s): J44.9 - Chronic obstructive pulmonary disease, unspecified Comment: Not in acute ecaxerbation. Nebs PRN. (2) HLD (hyperlipidemia) Code(s): E78.5 - HYPERLIPIDEMIA, UNSPECIFIED Status: Acute Qualifiers: Hyperlipidemia type: unspecified Qualified Code(s): E78.5 - Hyperlipidemia , unspecified Comment: Continue Statins. (3) Ischemic cardiomyopathy Code(s): I25.5 - ISCHEMIC CARDIOMYOPATHY Status: Acute Comment: Stable. Chest pain free. Can restart ASA and Plavix after surgery. Continue carvedilol and ACEi with holding parameters. (4) CAD (coronary artery disease) Code(s): I25.10 - ATHSCL HEART DISEASE OF [place] CORONARY ARTERY W/O ANG PCTRS Status: Chronic Qualifiers: Coronary Disease-Associated Artery/Lesion type: [place] artery [place] vs. transplanted heart: [place] heart Associated angina: without angina Qualified Code(s): I25.10 - Atherosclerotic heart disease of [place] coronary artery without angina pectoris (5) HTN (hypertension) Code(s): I10 - ESSENTIAL (PRIMARY) HYPERTENSION Status: Chronic Qualifiers: Hypertension type: essential hypertension Qualified Code(s): I10 - Essential (primary) hypertension Comment: Has had borderline hypotensive episodes. Hold antihypertensives. (6) Macrocytic anemia Code(s): D53.9 - NUTRITIONAL ANEMIA, UNSPECIFIED Status: Chronic (7) S/P ORIF (open reduction internal fixation) fracture Status: Acute Comment: Doing well post op. Continue management per orthopedic surgery. - Plan cont current plan of care, PT/OT, clinical social work aide, DVT proph w/lovenox * . Review of Systems - Medications/Allergies Allergies/Adverse Reactions: Allergies Allergy/AdvReac Type Severity Reaction Status Date / Time codeine [Codeine] AdvReac Unknown Verified 11/09/15 15:12 Medications: Current Medications Acetaminophen (Tylenol) 1,000 mg PO Q6H [facility] Last Admin: 02/02/18 09:06 Dose: 1,000 mg Al Hydroxide/Mg Hydroxide (Maalox) 30 ml PO Q6H PRN PRN Reason: Heartburn or Indigestion Albuterol/Ipratropium (Duoneb) 3 ml NEB [id number] PRN PRN Reason: SOB &/or Wheezing Alendronate Sodium (Fosamax) 70 mg PO Q7D [facility] Last Admin: 02/01/18 09:54 Dose: Not Given Ascorbic Acid (Vitamin C) 500 mg PO BID-[facility] Last Admin: 02/02/18 09:01 Dose: 500 mg Atorvastatin Calcium (Lipitor) 40 mg PO DAILY [facility] Last Admin: 02/02/18 09:01 Dose: 40 mg Benzonatate (Tessalon) 100 mg PO Q4H PRN PRN Reason: Cough Bisacodyl (Dulcolax) 10 mg PO DAILYPRN PRN PRN Reason: Constipation Calcium Carbonate (Tums) 1,000 mg PO Q4H PRN PRN Reason: Heartburn or Indigestion Carvedilol (Coreg) 6.25 mg PO BID [facility] Last Admin: 02/02/18 09:01 Dose: 6.25 mg Clonidine (Catapres) 0.1 mg PO Q4H PRN PRN Reason: Systolic BP > 160 Enoxaparin Sodium (Lovenox) 40 mg SC 09 [facility] Last Admin: 02/02/18 09:03 Dose: 40 mg Famotidine (Pepcid) 20 mg PO BID [facility] Last Admin: 02/02/18 09:03 Dose: 20 mg Ferrous Sulfate (Feosol) 325 mg PO BID-[facility] Last Admin: 02/02/18 09:00 Dose: 325 mg Gabapentin (Neurontin) 300 mg PO BID [facility] Last Admin: 02/02/18 09:01 Dose: 300 mg Guaifenesin (Robitussin Sf) 200 mg PO Q4H PRN PRN Reason: Cough Hydralazine HCl (Apresoline) 10 mg SLOW IVP Q4H PRN PRN Reason: Systolic BP > 170 Lisinopril (Zestril) 5 mg PO BID [facility] Last Admin: 02/02/18 09:01 Dose: 5 mg Loratadine (Claritin) 10 mg PO DAILYPRN PRN PRN Reason: Sinus Symptoms Lorazepam (Ativan) 1 mg SLOW IVP Q4H PRN PRN Reason: Anxiety/Agitation Magnesium Hydroxide (Milk Of Magnesium) 30 ml PO DAILYPRN PRN PRN Reason: Constipation Melatonin (Melatonin) 3 mg PO HS PRN PRN Reason: Insomnia Last Admin: 02/01/18 03:02 Dose: 3 mg Mirtazapine (Remeron) 30 mg PO DAILY [facility] Last Admin: 02/02/18 09:03 Dose: 30 mg Morphine Sulfate (Morphine) 2 mg SLOW IVP Q4H PRN PRN Reason: severe breakthrough pain Last Admin: 02/02/18 03:39 Dose: 2 mg Nitroglycerin (Nitrostat) 0.4 mg SL Q5MIN PRN PRN Reason: Chest Pain Ondansetron HCl (Zofran) 4 mg IVP Q6H PRN PRN Reason: Nausea/Vomiting Polyethylene Glycol (Miralax) 17 gm PO DAILY [facility] Last Admin: 02/02/18 09:03 Dose: 17 gm Ropinirole HCl (Requip) 0.25 mg PO DAILY [facility] Last Admin: 02/02/18 09:06 Dose: 0.25 mg Senna (Senokot) 2 tab PO HSPRN PRN PRN Reason: Constipation Sodium Chloride (Flush - Normal Saline) 10 ml IVF Q12HR [facility] Last Admin: 02/02/18 09:04 Dose: Not Given Sodium Chloride (Flush - Normal Saline) 10 ml IVF PRN PRN PRN Reason: Saline Flush Tramadol HCl (Ultram) 50 mg PO Q4H PRN PRN Reason: Moderate Pain (4-6) Last Admin: 02/01/18 20:23 Dose: 50 mg Tramadol HCl (Ultram) 100 mg PO Q6H PRN PRN Reason: Severe Pain (7-10) Last Admin: 02/02/18 12:28 Dose: 100 mg
[2018-02-02] MEDS ORDERED: Albuterol Sulfate 2.5 mg/3 ml Neb NEB PRN (12:43)
[2018-02-02] MEDS ORDERED: Sodium Chloride 0.9% 500 ML IVPB SCH (16:45)
--- NOTE | 2018-02-02 17:58 | PRG ---
DATE OF SERVICE: 02/02/2018 ATTENDING PHYSICIAN: Stanley Pastrana DO SUBJECTIVE: Ms. Guzman is a 77-year-old woman, status post ground level fall. She is postoperative d ay #1, status post repair of right hip fracture. She has been managed on the surgical floor with katia quate pain control. She still has her urinary catheter in place today on rounds. GCS is 15. OBJECTIVE: VITAL SIGNS: Temperature 97.3, pulse 87, respirations 20, O2 sat 98% on room air, blood pressure 92/ 55. HEENT: Normocephalic, atraumatic. HEART: Regular rate and rhythm. Heart sounds normal. LUNGS: Clear to auscultation. RESPIRATORY: Even and unlabored. ABDOMEN: Soft, nontender, and nondistended. EXTREMITIES: Moves all extremities. Neurovascularly intact, 2+ pulses all extremities. Right hip o rthopedic surgical site covered with dressing clean, dry, and intact. NEUROLOGIC: GCS is 15. Awake, alert, and oriented x3. LABORATORY STUDIES: Hematology: RBC 2.61, hemoglobin 8.5 down from 9.9 yesterday, hematocrit 25.9 d own from 30.7 yesterday, and platelets 123. Chemistry: Sodium 136, potassium 4.3, chloride 103, car bon dioxide 28, BUN 6, creatinine 0.6, and glucose 140. ASSESSMENT: 1. Status post ground level fall with right femoral neck fracture. 2. Postoperative day #1, status post open reduction and internal fixation right femoral neck fractur e. 3. History of coronary artery disease, status post coronary artery stenting. 4. History of hypertension, present on admission. 5. History of chronic pain syndrome, present on admission. PLAN: 1. Discontinue urinary catheter today. 2. Continue mobilizing with physical and occupational therapy. 3. Rehab referral pending. 4. Anticipate discharge to rehab over the weekend. The patient was seen and examined with Dr. Pastrana, who agrees with the assessment and plan.
[2018-02-03] MEDS: Acetaminophen 500 MG TAB PO SCH ×4 (02:38→21:06)
[2018-02-03 05:22] LABS: #Eosinphils 0.2 thou/uL (0.0-0.7); #Lymphocytes 1.9 thou/uL (1.20-3.40); #Monocytes 1.1 thou/uL (0.11-0.59); #Neutrophils 4.6 thou/uL (1.40-6.50); %Basophils 0.2 % (0.0-1.0); %Eosinophils 2.3 % (0.0-10.0); %Lymphocytes 24.2 % (21.0-51.0); %Monocytes 14.6 % (0.0-10.0); %Neutrophils 58.8 % (42.0-75.0); Hemoglobin 7.8 g/dL (12.0-16.0); Mean Corpuscular HGB CONC 32.2 g/dL (32.0-36.0); Mean Corpuscular Hemoglobin 32.3 pg (27.0-31.0); Mean Platelet Volume 8.4 fL (7.4-10.4); Platelet Count 130 thou/uL (130-400); RBC Distribution Width 14.5 % (11.5-14.5); Red Blood Cell (RBC) Count 2.42 mill/uL (4.20-5.40); White Blood Cell (WBC) Count 7.8 thou/uL (4.8-10.8)
[2018-02-03 05:32] LABS: Anion Gap 9 mmol/L (10-20); BUN (Urea Nitrogen) 10 mg/dL (9.8-20.1); Calc. Creatinine Clearance 59 mL/min (70-130); Calcium 8.3 mg/dL (7.8-10.44); Carbon Dioxide 30 mmol/L (23-31); Chloride 103 mmol/L (98-107); Estimated GFR-MDRD Greater than 90; Glucose 103 mg/dL (83-110); Potassium 3.7 mmol/L (3.5-5.1); Sodium 138 mmol/L (136-145)
[2018-02-03] MEDS ORDERED: Sodium Chloride 0.9% 1,000 ML IV SCH (08:00)
[2018-02-03] MEDS: Polyethylene Glycol 3350 17 GM Packet PO SCH (08:40)
[2018-02-03] MEDS: rOPINIRole HCl 0.25 MG TAB PO SCH (08:41)
[2018-02-03] MEDS: Ascorbic Acid 500 mg Chewable Tablet PO SCH ×2 (08:41→17:47)
[2018-02-03] MEDS: Famotidine 20 MG TAB PO SCH ×2 (08:41→21:06)
[2018-02-03] MEDS: Gabapentin 300 MG CAP PO SCH ×2 (08:41→21:06)
[2018-02-03] MEDS: traMADol HCl 50 MG TAB PO PRN ×2 (08:41→15:31)
[2018-02-03] MEDS: Atorvastatin Calcium 40 MG TAB PO SCH (08:42)
[2018-02-03] MEDS: Ferrous Sulfate 325 MG TAB PO SCH ×2 (08:42→17:47)
[2018-02-03] MEDS: Enoxaparin Sodium 40 MG/0.4 ML SYRINGE SC SCH (08:42)
[2018-02-03] MEDS: Mirtazapine 15 MG TAB PO SCH (08:42)
--- NOTE | 2018-02-03 10:00 | PDOC.PN ---
- Subjective Encounter Start Date: 02/03/18 Encounter Start Time: 10:04 Subjective: No acute events overnight. -: Was hypotensive earlier but resolved with a bolus. -: No complaints, other than her R hip pain. - Objective MAR Reviewed: Yes Vital Signs & Weight: Vital Signs (12 hours) Temp Pulse Resp BP BP Pulse Ox 02/03/18 07:55 98.3 F 116 H 20 136/79 95 02/03/18 04:00 99.7 F H 103 H 18 98/56 L 95 02/03/18 00:00 98.8 F 107 H 18 94/55 L Weight Weight 109 lb 9.116 oz I&O: 02/02/18 02/03/18 02/04/18 06:59 06:59 07:59 Intake Total 1140 1650 570 Output Total 1300 2800 Balance -160 -1150 570 Result Diagrams: 02/03/18 04:53 02/03/18 04:53 Phys Exam - Physical Examination Constitutional: NAD HEENT: PERRLA, moist MMs, sclera anicteric Neck: no JVD, supple, full ROM Respiratory: no rales, no rhonchi, wheezing present, clear to auscultation bilateral Cardiovascular: RRR, no significant murmur, no rub Gastrointestinal: soft, non-tender, no distention, positive bowel sounds Musculoskeletal: no edema, pulses present Neurological: non-focal Psychiatric: normal affect, A&O x 3 Skin: no rash, normal turgor Dx/Plan (1) COPD (chronic obstructive pulmonary disease) Status: Acute Qualifiers: COPD type: unspecified COPD Qualified Code(s): J44.9 - Chronic obstructive pulmonary disease, unspecified Comment: Not in acute ecaxerbation. Will schedule duonebs with albuterol PRN (2) HLD (hyperlipidemia) Code(s): E78.5 - HYPERLIPIDEMIA, UNSPECIFIED Status: Acute Qualifiers: Hyperlipidemia type: unspecified Qualified Code(s): E78.5 - Hyperlipidemia , unspecified Comment: Continue Statins. (3) Ischemic cardiomyopathy Code(s): I25.5 - ISCHEMIC CARDIOMYOPATHY Status: Acute Comment: Stable. Chest pain free. Can restart ASA and Plavix after surgery. Continue carvedilol with holding parameters. Hold ACEi 2/2 hypotension. (4) CAD (coronary artery disease) Code(s): I25.10 - ATHSCL HEART DISEASE OF [place] CORONARY ARTERY W/O ANG PCTRS Status: Chronic Qualifiers: Coronary Disease-Associated Artery/Lesion type: [place] artery [place] vs. transplanted heart: [place] heart Associated angina: without angina Qualified Code(s): I25.10 - Atherosclerotic heart disease of [place] coronary artery without angina pectoris Plan: above. (5) HTN (hypertension) Code(s): I10 - ESSENTIAL (PRIMARY) HYPERTENSION Status: Chronic Qualifiers: Hypertension type: essential hypertension Qualified Code(s): I10 - Essential (primary) hypertension (6) Macrocytic anemia Code(s): D53.9 - NUTRITIONAL ANEMIA, UNSPECIFIED Status: Chronic (7) S/P ORIF (open reduction internal fixation) fracture Status: Acute Comment: Doing well post op. Continue management per orthopedic surgery. (8) Hypotension Status: Acute Qualifiers: Hypotension type: other hypotension type Qualified Code(s): I95.89 - Other hypotension Comment: Resolved with hydration. - Plan cont current plan of care, PT/OT, social media project manager Continue current management. Medicine service signing off. -: Do not hesitate to call if there are more questions or concerns. * .
--- NOTE | 2018-02-03 15:17 | PRG ---
DATE OF SERVICE: 02/03/2018 ATTENDING PHYSICIAN: Dr. Stanley Pastrana. SUBJECTIVE: Ms. Guzman is a 77-year-old woman, status post ground-level fall. She is postoperative d ay #2, status post repair of right hip fracture. She has been managed on the surgical floor with katia quate pain control. Her urinary catheter has been discontinued and she is now voiding. GCS has shawn ined 15. OBJECTIVE: VITAL SIGNS: Temperature 98.3, pulse 82, respirations 16, O2 sat 96% on 2 liters nasal cannula, bloo d pressure 136/79. HEENT: Atraumatic, normocephalic. HEART: Regular rate and rhythm. Heart sounds normal. LUNGS: Clear to auscultation. No respiratory distress. ABDOMEN: Soft, nontender, nondistended. EXTREMITIES: Moves all extremities. Neurovascularly intact. Cap refill brisk. A 2+ pulses in all extremities. NEUROLOGIC: GCS 15. Awake, alert, oriented x3. No focal motor or sensory deficits. LABORATORY DATA: Hemoglobin 7.8, down from 8.5 yesterday. ASSESSMENT: 1. Status post ground-level fall with right femoral neck fracture. 2. Postoperative day #2, status post open reduction and internal fixation, right femoral neck fractu re. 3. Hemoglobin trending down slightly. 4. History of coronary artery disease, status post coronary artery stenting. 5. History of hypertension, present on admission. 6. History of chronic pain syndrome, present on admission. PLAN: 1. Discussed with Orthopedics and Hospital Medicine, we will discontinue Lovenox and restart Plavix and aspirin tomorrow. 2. Trend H and H. Transfuse as indicated. 3. Continue mobilizing with physical and occupational therapy. 4. Rehabilitation referral pending. I anticipate discharge to rehab when approved. The patient was reviewed with Dr. Pastrana, attending surgeon, who agrees with plan.
[2018-02-03] MEDS: Carvedilol 6.25 MG TAB PO SCH (17:47)
[2018-02-04] MEDS: Acetaminophen 500 MG TAB PO SCH ×4 (03:30→21:00)
[2018-02-04 04:28] LABS: Anion Gap 6 mmol/L (10-20); BUN (Urea Nitrogen) 9 mg/dL (9.8-20.1); Calc. Creatinine Clearance 66 mL/min (70-130); Calcium 8.3 mg/dL (7.8-10.44); Carbon Dioxide 32 mmol/L (23-31); Chloride 104 mmol/L (98-107); Estimated GFR-MDRD Greater than 90; Glucose 107 mg/dL (83-110); Potassium 4.1 mmol/L (3.5-5.1); Sodium 138 mmol/L (136-145)
[2018-02-04 04:29] LABS: Hemoglobin 7.4 g/dL (12.0-16.0); Mean Corpuscular HGB CONC 32.3 g/dL (32.0-36.0); Mean Corpuscular Hemoglobin 32.3 pg (27.0-31.0); Mean Platelet Volume 8.5 fL (7.4-10.4); Platelet Count 129 thou/uL (130-400); RBC Distribution Width 14.5 % (11.5-14.5); White Blood Cell (WBC) Count 5.7 thou/uL (4.8-10.8)
[2018-02-04] MEDS ORDERED: Aspirin 325 MG TAB PO SCH (09:00)
[2018-02-04] MEDS: Polyethylene Glycol 3350 17 GM Packet PO SCH (09:05)
[2018-02-04] MEDS: Ascorbic Acid 500 mg Chewable Tablet PO SCH ×2 (09:05→16:56)
[2018-02-04] MEDS: Famotidine 20 MG TAB PO SCH ×2 (09:05→21:00)
[2018-02-04] MEDS: Gabapentin 300 MG CAP PO SCH ×2 (09:05→21:00)
[2018-02-04] MEDS: Mirtazapine 15 MG TAB PO SCH (09:05)
[2018-02-04] MEDS: Atorvastatin Calcium 40 MG TAB PO SCH (09:05)
[2018-02-04] MEDS: Carvedilol 6.25 MG TAB PO SCH ×2 (09:05→16:56)
[2018-02-04] MEDS: Clopidogrel Bisulfate 75 MG TAB PO SCH (09:06)
[2018-02-04] MEDS: Ferrous Sulfate 325 MG TAB PO SCH ×2 (09:06→16:56)
[2018-02-04] MEDS: rOPINIRole HCl 0.25 MG TAB PO SCH (15:15)
--- NOTE | 2018-02-04 15:57 | PRG ---
DATE OF SERVICE: 02/04/2018 ATTENDING PHYSICIAN: Dr. Stanley Pastrana. SUBJECTIVE: Ms. Guzman is a 77-year-old woman status post ground level fall. She is postoperative da y #3 status post repair of right hip fracture. She has been managed on the surgical floor with adequ ate pain control. She is mobilizing with physical and occupational therapy. Her home dose Plavix an d aspirin have been restarted. OBJECTIVE: VITAL SIGNS: Temperature 99.6, pulse 80, respirations 16, O2 sat 96% on 2 liters nasal cannula, bloo d pressure 100/59. HEENT: Atraumatic, normocephalic. CARDIOVASCULAR: Heart regular rate and rhythm. Heart sounds normal. LUNGS: Clear to auscultation. No respiratory distress. ABDOMEN: Soft, nontender, nondistended. Bowel sounds normal. EXTREMITIES: Moves all extremities well. Neurovascularly intact. Cap refill brisk 2+ pulses in all extremities. NEUROLOGIC: GCS 15, awake, alert, oriented x3. No focal motor or sensory deficits. PERTINENT LABORATORY DATA: Hemoglobin 7.4 down from 7.8 yesterday. ASSESSMENT: 1. Status post ground level fall with right femoral neck fracture. 2. Postoperative day #3, status post open reduction and internal fixation, right femoral neck fractu re. 3. Hemoglobin trending down slightly. 4. History of coronary artery disease, status post coronary artery stenting. 5. History of hypertension, present on admission. 6. History of chronic pain syndrome, present on admission. 7. Plavix and aspirin restarted at home dose. PLAN: 1. Continue PT and OT as ordered. 2. Case management following for discharge planning. The patient is amenable to going to SNF; [facility], she does not want to go to [facility] or [facility]. I will discuss with case management her preferences. 3. Trend H and H. Transfuse as indicated. 4. Encourage incentive spirometry and pulmonary toilet. The patient currently achieving 1000 mL inc entive spirometry volumes. Patient was reviewed with Dr. Pastrana, attending surgeon, who agrees with the plan.
[2018-02-05] MEDS: Acetaminophen 500 MG TAB PO SCH ×4 (03:33→20:18)
[2018-02-05 07:24] LABS: #Eosinphils 0.1 thou/uL (0.0-0.7); #Lymphocytes 0.9 thou/uL (1.20-3.40); #Monocytes 0.6 thou/uL (0.11-0.59); %Basophils 0.7 % (0.0-1.0); %Eosinophils 2.6 % (0.0-10.0); %Lymphocytes 19.5 % (21.0-51.0); %Monocytes 13.7 % (0.0-10.0); %Neutrophils 63.5 % (42.0-75.0); Hemoglobin 7.9 g/dL (12.0-16.0); Mean Corpuscular HGB CONC 31.4 g/dL (32.0-36.0); Mean Corpuscular Hemoglobin 31.9 pg (27.0-31.0); Platelet Count 167 thou/uL (130-400); RBC Distribution Width 14.3 % (11.5-14.5); Red Blood Cell (RBC) Count 2.48 mill/uL (4.20-5.40); White Blood Cell (WBC) Count 4.7 thou/uL (4.8-10.8)
[2018-02-05] MEDS ORDERED: Senokot 8.6 MG TAB PO SCH (07:45)
[2018-02-05] MEDS ORDERED: Bisacodyl 5 MG TAB PO SCH (07:45)
--- NOTE | 2018-02-05 09:45 | PRG ---
DATE OF SERVICE: 02/05/2018 Ashlee is postop day #4 from a right hip hemiarthroplasty secondary to femoral neck fracture. She is d oing relatively well. I believe plans for transfer to skilled facility are still being done. Exam of her incision is clean, a little bit of scant drainage is noted with some strike through at he r dressing which was removed. Hubert appear to be intact. She is neurovascularly intact in right l ower extremity and she is about to get up with therapy. ASSESSMENT: Right hip hemiarthroplasty secondary to a femoral neck fracture. PLAN: 1. Orders have been placed for follow up, staple removal and incision care as well as hip precaution s for transfer. These were entered into the discharge plan. 2. We will follow up in 3-4 weeks in clinic and kayce will be removed at skilled facility.
[2018-02-05] MEDS: traMADol HCl 50 MG TAB PO SCH ×2 (09:59→17:27)
[2018-02-05] MEDS: Atorvastatin Calcium 40 MG TAB PO SCH (10:01)
[2018-02-05] MEDS: Ascorbic Acid 500 mg Chewable Tablet PO SCH ×2 (10:01→17:26)
[2018-02-05] MEDS: Famotidine 20 MG TAB PO SCH ×2 (10:02→20:18)
[2018-02-05] MEDS: Ferrous Sulfate 325 MG TAB PO SCH ×2 (10:02→17:26)
[2018-02-05] MEDS: Carvedilol 6.25 MG TAB PO SCH ×2 (10:02→17:27)
[2018-02-05] MEDS: Clopidogrel Bisulfate 75 MG TAB PO SCH (10:02)
[2018-02-05] MEDS: Gabapentin 300 MG CAP PO SCH ×2 (10:02→20:18)
[2018-02-05] MEDS: Mirtazapine 15 MG TAB PO SCH (10:03)
[2018-02-05] MEDS: Polyethylene Glycol 3350 17 GM Packet PO SCH (10:03)
[2018-02-05] MEDS ORDERED: Furosemide 20 MG/2 ML VIAL SLOW IVP SCH (11:30)
[2018-02-05] MEDS: rOPINIRole HCl 0.25 MG TAB PO SCH (12:14)
--- NOTE | 2018-02-05 13:38 | PRG ---
DATE OF SERVICE: 02/05/2018 SUBJECTIVE: Ms. Thomas Merritt is a 77-year-old old woman who is 4 days status post ORIF of right femoral neck fracture. The patient has remained hemodynamically stable over the last 2 days. She was being transferred from bed to chair this morning when she became temporarily unresponsive and diaphoretic. Dasha Hassan was called. Upon arrival, the patient is awake. She is pale appearing and diaphoretic. She denies any dyspnea, syncope or chest pain. She is indeed aware of what just transpired. She denies any problems at this time. OBJECTIVE: VITAL SIGNS: Currently includes blood pressure 168/84, pulse 97 and regular, respiratory rate 16, oxygen saturation is 94% on 2 liters by nasal cannula oxygen, blood glucose is 141. HEENT: Examination reveals normocephalic and atraumatic. Pupils are equal, round, reactive to light and accommodation. HEART: Reveals regular rate and rhythm, no murmurs or gallops auscultated. LUNGS: Clear to auscultation bilaterally. Breathing is regular and unlabored. ABDOMEN: Soft, nontender, nondistended. EXTREMITIES: Reveals 2+ radial and pedal pulses bilaterally. No ankle edema is present. NEUROLOGIC: Examination currently reveals no focal deficits present. IMAGING DATA: A 12 lead EKG obtained which reveals normal sinus rhythm, no ST changes. LABORATORY DATA: Laboratory findings includes CBC today with 4,700 white blood cells, hemoglobin and hematocrit 7.9 and 25.1 respectively and stable. Platelet count 167,000. IMPRESSION: 1. Postoperative day #4, status post open reduction and internal fixation of hip fracture. 2. Near syncopal episode this morning, likely vasovagal reaction. The patient is otherwise hemodynamically stable. 3. Acute blood loss anemia. PLAN: 1. Patient will be transfused with 1 unit of packed red blood cells. 2. We will monitor her for hemodynamic stability and transfer her to swing bed later today. Above findings and plan discussed with the patient who indicates understanding of information given. I have answered her questions. SENDY
--- NOTE | 2018-02-05 14:01 | DIS ---
DATE OF ADMISSION: 01/31/2018 DATE OF DISCHARGE: 02/05/2018 ADMITTING PHYSICIAN: Dr. Sands DISCHARGING PHYSICIAN: Dr. Stanley Pastrana CHIEF COMPLAINT: Right femoral neck fracture. HISTORY OF PRESENT ILLNESS: The patient is a 77-year-old female with a past medical history of COPD , CAD, dyslipidemia, peripheral neuropathy who presented to the [facility] with right hip pain after suffering a ground level fall. She was evaluated and found to have a right femoral ne ck fracture. Orthopedic Surgery was consulted and the patient underwent a right hip hemiarthroplasty on 02/01/2018. The patient was then transferred to the surgical floor where she remained stable and was [facility]. ADMISSION DIAGNOSIS: Right femoral neck fracture. DISCHARGE DIAGNOSIS: Right femoral neck fracture, status post right hip hemiarthroplasty. DISCHARGE MEDICATIONS: The patient was restarted on all of her home medications. The patient was gi jack a prescription for the following medications: 1. Tramadol 50 mg tablets 1-2 tablets p.o. q.6h. as needed for pain. ACTIVITY INSTRUCTIONS: The patient discharged with orthopedic limitations including weightbearing as tolerated on the right lower extremity. NOURISHMENT INSTRUCTIONS: The patient was discharged on a regular diet. THERAPY INSTRUCTIONS: The patient will receive physical and occupational therapy in her skilled nurs ing facility. FOLLOWUP INSTRUCTIONS: The patient is to follow up with Dr. Ko Cadena in 3-4 weeks. The patient also instructed to follow up with her primary care physician as needed. The patient will ne ed her kayce out postop day 14-16. This patient was seen and examined on rounds with Dr. Stanley Pastrana who agrees with this discharge pl an.
[2018-02-06] MEDS: traMADol HCl 50 MG TAB PO SCH ×2 (01:50→10:04)
[2018-02-06] MEDS: Acetaminophen 500 MG TAB PO SCH ×2 (01:50→08:12)
[2018-02-06 07:37] VITALS: BP 140/74; TEMP 97.8
[2018-02-06] MEDS: Ferrous Sulfate 325 MG TAB PO SCH (08:11)
[2018-02-06] MEDS: Ascorbic Acid 500 mg Chewable Tablet PO SCH (08:12)
[2018-02-06] MEDS: Carvedilol 6.25 MG TAB PO SCH (08:12)
[2018-02-06 08:40] LABS: #Eosinphils 0.3 thou/uL (0.0-0.7); #Lymphocytes 1.5 thou/uL (1.20-3.40); #Monocytes 0.6 thou/uL (0.11-0.59); #Neutrophils 2.3 thou/uL (1.40-6.50); %Basophils 0.7 % (0.0-1.0); %Eosinophils 6.4 % (0.0-10.0); %Lymphocytes 30.9 % (21.0-51.0); %Monocytes 13.1 % (0.0-10.0); %Neutrophils 48.9 % (42.0-75.0); Hemoglobin 9.4 g/dL (12.0-16.0); Mean Corpuscular HGB CONC 32.1 g/dL (32.0-36.0); Mean Corpuscular Hemoglobin 31.8 pg (27.0-31.0); Mean Corpuscular Volume 99.1 fl (81.0-99.0); Mean Platelet Volume 7.6 fL (7.4-10.4); Platelet Count 202 thou/uL (130-400); RBC Distribution Width 15.3 % (11.5-14.5); Red Blood Cell (RBC) Count 2.96 mill/uL (4.20-5.40); White Blood Cell (WBC) Count 4.7 thou/uL (4.8-10.8)
[2018-02-06] MEDS: rOPINIRole HCl 0.25 MG TAB PO SCH (09:09)
[2018-02-06] MEDS: Gabapentin 300 MG CAP PO SCH (09:10)
[2018-02-06] MEDS: Atorvastatin Calcium 40 MG TAB PO SCH (09:10)
[2018-02-06] MEDS: Mirtazapine 15 MG TAB PO SCH (09:10)
[2018-02-06] MEDS: Famotidine 20 MG TAB PO SCH (09:10)
[2018-02-06] MEDS: Clopidogrel Bisulfate 75 MG TAB PO SCH (09:10)
[2018-02-06] MEDS: Polyethylene Glycol 3350 17 GM Packet PO SCH (09:11)
--- NOTE | 2018-02-06 12:55 | ADD-DIS ---
ADDENDUM TO DISCHARGE SUMMARY FROM 02/05/2018 HOSPITAL COURSE: The patient was discharged in the morning. However, after the discharge orders had been put in and this note was dictated the patient was transferring to chair when she became tempora rily unresponsive and diaphoretic. A [place] was called. Upon arrival by Dr. Stanley Pastrana, the patient was awake, but pale appearing and diuretics. It was felt to be likely vasovagal reaction. T he patient was hemodynamically stable, although she did have a low hemoglobin and hematocrit. The pa rudolph was given 1 unit of PRBCs and the decision was made to keep the patient on the unit for observa tion. The patient's a.m. labs drawn this morning show a hemoglobin of 9.4, up from 7.9 yesterday and a hematocrit of 29.3, up from 25.1 yesterday. The patient was stable on the floor overnight and was discharged on 02/06/2018 in good.
== END 2018-02-06 11:45 | DRG 470 ==
LOC: ERS 15:17 → SJJU 19:27
PROVIDERS: ADMIT Internal Medicine Infectious Disease; ATTEND Internal Medicine Infectious Disease
PROC: 0SRR0J9 Replacement of Right Hip Joint, Femoral Surface with Synthetic Substitute, Cemented, Open Approach (ICD-10-PCS; principal; 2018-02-01)
PROC: 30233N1 Transfusion of Nonautologous Red Blood Cells into Peripheral Vein, Percutaneous Approach (ICD-10-PCS; 2018-02-05)
DX: S72.001A Fracture of unspecified part of neck of right femur, initial encounter for closed fracture (principal); J44.9 Chronic obstructive pulmonary disease, unspecified; W01.0XXA Fall on same level from slipping, tripping and stumbling without subsequent striking against object, initial encounter; I25.10 Atherosclerotic heart disease of native coronary artery without angina pectoris; E78.5 Hyperlipidemia, unspecified; I73.9 Peripheral vascular disease, unspecified; I10 Essential (primary) hypertension; M81.0 Age-related osteoporosis without current pathological fracture; K21.9 Gastro-esophageal reflux disease without esophagitis; Z95.5 Presence of coronary angioplasty implant and graft; F41.9 Anxiety disorder, unspecified; F32.9 Major depressive disorder, single episode, unspecified; Z79.01 Long term (current) use of anticoagulants; Z79.82 Long term (current) use of aspirin
CPT/HCPCS: 36415; 36416; 36430; 51702; 71045; 72170; 80048; 80053; 81003; 81015; 82550; 83735; 83880; 84100; 85007; 85025; 85027; 85610; 85730; 86850; 86900; 86901; 87086; 93005; 93010; 94640; 96374; 96376; A4216; C1713; C1781; G0390; G8978-GP-CM; G8979-GP-CJ; G8987-GO-CK; G8988-GO-CI; J1100; J1650; J1940; J2001; J2270; J2405; J2550; J2704; J3010; J7620; P9016

== ENCOUNTER 2018-03-06 07:50 | Emergency (ER) | payer MEDICARE, OTHER ==
[2018-03-06 08:47] LABS: #Lymphocytes 0.8 thou/uL (1.20-3.40); #Monocytes 0.7 thou/uL (0.11-0.59); #Neutrophils 5.9 thou/uL (1.40-6.50); %Basophils 0.3 % (0.0-1.0); %Eosinophils 0.4 % (0.0-10.0); %Lymphocytes 10.2 % (21.0-51.0); %Monocytes 9.7 % (0.0-10.0); %Neutrophils 79.4 % (42.0-75.0); Hemoglobin 10.3 g/dL (12.0-16.0); Mean Corpuscular HGB CONC 32.6 g/dL (32.0-36.0); Mean Corpuscular Hemoglobin 32.1 pg (27.0-31.0); Mean Corpuscular Volume 98.6 fl (81.0-99.0); Mean Platelet Volume 8.2 fL (7.4-10.4); Platelet Count 154 thou/uL (130-400); RBC Distribution Width 13.9 % (11.5-14.5); Red Blood Cell (RBC) Count 3.22 mill/uL (4.20-5.40); White Blood Cell (WBC) Count 7.4 thou/uL (4.8-10.8)
--- NOTE | 2018-03-06 08:57 | RAD ---
SINGLE VIEW OF THE CHEST: Comparison: 01-31-18 History: Chest pain, shortness of breath. FINDINGS: Single view of the chest shows normal sized cardiomediastinal silhouette with atherosclerotic calcifi cations in the aorta. Interstitial increased markings are present. There is no evidence of consolidat ion, mass, pleural effusion. Degenerative changes are seen in the spine. Post-surgical changes are se en in the cervical spine. Vertebroplasty cement is seen in the thoracic spine. IMPRESSION: 1. No evidence of acute cardiopulmonary disease. 2. Atherosclerotic disease. POS: [facility]
[2018-03-06 09:06] LABS: ALT (SGPT) 7 U/L (8-55); AST (SGOT) 15 U/L (5-34); Albumin 3.2 g/dL (3.4-4.8); Alkaline Phosphatase 91 U/L (40-150); Anion Gap 14 mmol/L (10-20); BUN (Urea Nitrogen) 6 mg/dL (9.8-20.1); Bilirubin, Total 0.6 mg/dL (0.2-1.2); CK (CPK) 32 U/L (29-168); Calc. Creatinine Clearance 0 mL/min (70-130); Calcium 8.5 mg/dL (7.8-10.44); Carbon Dioxide 25 mmol/L (23-31); Chloride 103 mmol/L (98-107); Estimated GFR-MDRD Greater than 90; Globulin 2.7 g/dL (2.4-3.5); Glucose 95 mg/dL (83-110); Potassium 3.5 mmol/L (3.5-5.1); Protein, Total 5.9 g/dL (6.0-8.3); Sodium 138 mmol/L (136-145)
[2018-03-06 09:10] LABS: CKMB 0.9 ng/mL (0-6.6); Troponin I Less than 0.010 ng/mL (< 0.028)
[2018-03-06 12:17] LABS: Bilirubin Small (Negative); Blood, Urine Negative (Negative); Clarity CLEAR (Clear); Glucose, Urine (Dipstick) Negative (Negative); Leukocyte Small (Negative); Nitrite Negative (Negative); Protein, Urine (Dipstick) 30 mg/dL (Neg-Trace); Specific Gravity, Urine 1.017 (1.002-1.036); pH, Urine 6.5 (5.0-9.0)
[2018-03-06 12:18] LABS: Bacteria/HPF None Seen HPF (None Seen); Hyaline Casts/LPF 0-3 HYALINE CAST LPF (0-3 Hyaline); Pathc Cast-AUWi Flag 0.58 (0-2.49)
== END 2018-03-06 13:34 | disposition home or self-care (01) ==
LOC: ERS 07:50
DX: J18.9 Pneumonia, unspecified organism (principal); N39.0 Urinary tract infection, site not specified; I25.2 Old myocardial infarction; E78.5 Hyperlipidemia, unspecified; I10 Essential (primary) hypertension; F41.9 Anxiety disorder, unspecified; F32.9 Major depressive disorder, single episode, unspecified; G62.9 Polyneuropathy, unspecified; Z79.82 Long term (current) use of aspirin; Z79.899 Other long term (current) drug therapy; Z79.891 Long term (current) use of opiate analgesic
CPT/HCPCS: 36415; 71045; 80053; 81003; 81015; 82553; 83605; 83880; 84484; 85025; 87040; 87086; 93005; 94640; 94760; J7620

== ENCOUNTER 2018-04-07 11:49 | Emergency (ER) | payer MEDICARE, OTHER ==
[2018-04-07] MEDS ORDERED: Morphine 4 MG/ML VIAL ONE ×2 (12:13→13:24)
[2018-04-07 12:17] LABS: #Eosinphils 0.1 thou/uL (0.0-0.7); #Lymphocytes 1.8 thou/uL (1.20-3.40); #Monocytes 0.5 thou/uL (0.11-0.59); #Neutrophils 4.2 thou/uL (1.40-6.50); %Basophils 0.7 % (0.0-1.0); %Eosinophils 0.8 % (0.0-10.0); %Lymphocytes 27.2 % (21.0-51.0); %Neutrophils 64.3 % (42.0-75.0); Hemoglobin 11.9 g/dL (12.0-16.0); Mean Corpuscular HGB CONC 32.8 g/dL (32.0-36.0); Mean Corpuscular Hemoglobin 31.5 pg (27.0-31.0); Mean Corpuscular Volume 96.2 fl (81.0-99.0); Mean Platelet Volume 8.3 fL (7.4-10.4); Platelet Count 195 thou/uL (130-400); RBC Distribution Width 13.3 % (11.5-14.5); Red Blood Cell (RBC) Count 3.76 mill/uL (4.20-5.40); White Blood Cell (WBC) Count 6.5 thou/uL (4.8-10.8)
[2018-04-07 12:35] LABS: ALT (SGPT) 49 U/L (8-55); AST (SGOT) 44 U/L (5-34); Albumin 3.5 g/dL (3.4-4.8); Alkaline Phosphatase 118 U/L (40-150); Anion Gap 20 mmol/L (10-20); BUN (Urea Nitrogen) 15 mg/dL (9.8-20.1); Bilirubin, Total 0.4 mg/dL (0.2-1.2); Calc. Creatinine Clearance 0 mL/min (70-130); Calcium 8.9 mg/dL (7.8-10.44); Carbon Dioxide 17 mmol/L (23-31); Chloride 103 mmol/L (98-107); Estimated GFR-MDRD 88; Globulin 2.8 g/dL (2.4-3.5); Glucose 70 mg/dL (83-110); Lipase 15 U/L (8-78); Potassium 4.1 mmol/L (3.5-5.1); Protein, Total 6.3 g/dL (6.0-8.3); Sodium 136 mmol/L (136-145)
[2018-04-07] MEDS ORDERED: Iopamidol 370 76% 50 ML VIAL FS ONE (13:25)
[2018-04-07] MEDS ORDERED: ISOVUE-370 76%-LOCM 1 ML ONE (13:25)
[2018-04-07 13:34] LABS: Bilirubin Negative (Negative); Blood, Urine Trace (Negative); Clarity CLEAR (Clear); Glucose, Urine (Dipstick) Negative (Negative); Leukocyte Negative (Negative); Nitrite Negative (Negative); Protein, Urine (Dipstick) Trace mg/dL (Neg-Trace); Specific Gravity, Urine 1.019 (1.002-1.036); Urobilinogen 0.2 mg/dL (0.2-1.0)
[2018-04-07 13:36] LABS: Bacteria/HPF None Seen HPF (None Seen); Hyaline Casts/LPF 4-6 HYALINE CAST LPF (0-3 Hyaline); Pathc Cast-AUWi Flag 1.01 (0-2.49); RBC/HPF 0-3 HPF (0-3); Squamous Epithelial 0-3 HPF (0-3); WBC/HPF 0-3 HPF (0-3)
--- NOTE | 2018-04-07 15:33 | CT ---
CT ABDOMEN AND PELVIS WITH IV CONTRAST: DATE: 04/07/18. HISTORY: Left lower quadrant abdominal pain with nausea and vomiting. COMPARISON: None available. FINDINGS: Linear densities are seen in the region of the lingula which may be related to mild chronic lung boyle ges. Minimal linear areas of scarring versus atelectasis are seen at each lung base. The gallbladder is not visualized, likely related to prior cholecystectomy. There is intra- and extr ahepatic biliary ductal dilatation with extrahepatic common duct measuring 12 mm in diameter. Howeve r, this is probably related to reservoir effect secondary to cholecystectomy changes. There is mild prominence of the pancreatic duct which is also nonspecific. Pancreas otherwise has a normal CT appe arance. Calcified granulomata are seen in the liver and spleen. The bilateral adrenal glands and right kidney demonstrate a normal CT appearance. Subcentimeter too small to characterize hypodense lesions are seen in the left kidney. However, these lesions are stat istically most likely attributable to renal cysts. The urinary bladder is completely obscured as well as pelvic structures secondary to significant spra y artifact from bilateral total hip prostheses which limits evaluation. There is colonic diverticulosis. Opacified small bowel is normal in caliber. There is diffuse osteopenia. Vertebroplasty changes involve lower thoracic vertebral bodies at the T 11 and T12 levels. There does appear to be mild loss of height involving the L1, L2, and L3 vertebra l bodies likely related to mild compression fractures of indeterminate age. No free fluid or fluid collection is seen in the abdomen or pelvis, and there is no lymphadenopathy. There is a very small hiatal hernia present. IMPRESSION: 1. Obscuration of the pelvic structures due to significant spray artifact secondary to bilateral tot al hip prostheses. 2. Difficult to characterize subcentimeter hypodense lesion in the left kidney statistically most li nila representing a cyst. 3. Post-cholecystectomy changes. 4. Dense vascular calcifications. 5. No dilated loops of small bowel are seen. 6. Colonic diverticulosis. 7. Mild compression fractures involving lumbar vertebral bodies of indeterminate age. Vertebroplast y changes involve the T11 and T12 vertebral bodies, and there is left convex curvature of the thoraco lumbar spine. 8. Heterogeneity of the sacrum probably related to osteopenia/osteoporosis. Definitive fracture is not delineated. 9. Remote fractures involving each inferior and superior pubic ramus with deformity and nonunion fra cture of the left superior pubic ramus-pubic bone junction. POS: [facility]
== END 2018-04-07 16:20 | disposition home or self-care (01) ==
LOC: ERS 11:49
DX: R19.7 Diarrhea, unspecified (principal); I25.2 Old myocardial infarction; E78.5 Hyperlipidemia, unspecified; I10 Essential (primary) hypertension; F41.9 Anxiety disorder, unspecified; F32.9 Major depressive disorder, single episode, unspecified; Z79.82 Long term (current) use of aspirin; Z79.891 Long term (current) use of opiate analgesic; Z79.899 Other long term (current) drug therapy
CPT/HCPCS: 74177; 80053; 81003; 81015; 83605; 83690; 85025; 87045; 87046; 87205; 87324; 87328; 87329; 87449; 87899; 96361; 96374; J2270

== ENCOUNTER 2018-06-27 11:10 | Emergency (ER) | payer MEDICARE, OTHER ==
--- NOTE | 2018-06-27 11:43 | RAD ---
CHEST 1 VIEW: Date: 06/27/18 HISTORY: Dyspnea. COMPARISON: 03/06/18. FINDINGS: Stable, incompletely evaluated cervical fusion hardware. Stable atherosclerosis of the aorta and fazal nary artery calcifications. There may be a coronary artery stent. Normal cardiac silhouette. Pulmonar y vessels and hilum are normal. Costophrenic angles are clear. Chronic changes in the lung parenchyma . No masses or consolidation. No pneumothorax. There is diffuse bone demineralization. Stable vertebroplasty changes and stable compression fracture s of the thoracic spine. IMPRESSION: Atherosclerosis. No acute cardiopulmonary process. POS: [facility]
[2018-06-27] MEDS ORDERED: HYDROcodone/Acetaminophen 5/325 mg Tablet ONE (12:03)
--- NOTE | 2018-06-27 12:49 | RAD ---
LUMBAR SPINE TWO VIEWS: History: Fall, pain. Comparison: CT 04-07-18 FINDINGS: There is a fracture of the L1 vertebral body with sclerosis, likely not acute. The bones are severely osteopenic. Insufficiency fracture of the sacrum. There is cement in the lower thoracic vertebrae. There is a focal concavity at S2, likely due to insu ffiency fracture. Lungs are osteoporotic. Extensive vascular calcifications. IMPRESSION: Likely all chronic findings with osteoporosis. L1 healing compression fracture, as well as insufficie ncy fracture of the sacrum. POS: [facility]
--- NOTE | 2018-06-27 12:58 | RAD ---
THORACIC SPINE TWO VIEWS: HISTORY: Fall. Injury. COMPARISON: Chest radiograph from 11/09/2015 FINDINGS: There are multiple foci of cement in the thoracic vertebrae. This is at T11 and T12, as well as at T 8. There is a T6 compression fracture without significant further height loss from the 2015 examinat ion. There are superior endplate deformities at T9 and T10, which appear new. The upper thoracic spine evaluation is limited. Extensive bronchiectasis. IMPRESSION: New superior endplate deformities at T9 and T10 since 2015. POS: [facility]
[2018-06-27 13:56] LABS: #Eosinphils 0.1 thou/uL (0.0-0.7); #Monocytes 0.4 thou/uL (0.11-0.59); #Neutrophils 3.5 thou/uL (1.40-6.50); %Basophils 0.3 % (0.0-1.0); %Eosinophils 1.9 % (0.0-10.0); %Lymphocytes 19.9 % (21.0-51.0); %Neutrophils 70.9 % (42.0-75.0); Hemoglobin 12.6 g/dL (12.0-16.0); Mean Corpuscular HGB CONC 32.7 g/dL (32.0-36.0); Mean Corpuscular Hemoglobin 31.2 pg (27.0-31.0); Mean Corpuscular Volume 95.3 fL (78.0-98.0); Mean Platelet Volume 8.1 fL (7.4-10.4); Platelet Count 148 thou/uL (130-400); RBC Distribution Width 14.1 % (11.5-14.5); Red Blood Cell (RBC) Count 4.03 mill/uL (4.20-5.40)
[2018-06-27 14:17] LABS: ALT (SGPT) 11 U/L (8-55); AST (SGOT) 17 U/L (5-34); Albumin 3.7 g/dL (3.4-4.8); Alkaline Phosphatase 84 U/L (40-150); Anion Gap 19 mmol/L (10-20); BUN (Urea Nitrogen) 10 mg/dL (9.8-20.1); Bilirubin, Total 0.5 mg/dL (0.2-1.2); Calc. Creatinine Clearance 0 mL/min (70-130); Calcium 9.2 mg/dL (7.8-10.44); Carbon Dioxide 22 mmol/L (23-31); Chloride 105 mmol/L (98-107); Estimated GFR-MDRD Greater than 90; Globulin 2.9 g/dL (2.4-3.5); Glucose 72 mg/dL (83-110); Potassium 4.5 mmol/L (3.5-5.1); Protein, Total 6.6 g/dL (6.0-8.3); Sodium 141 mmol/L (136-145)
--- NOTE | 2018-06-27 14:23 | CT ---
CT THORACIC SPINE WITHOUT CONTRAST: Date: 06/27/18 HISTORY: Fell five days ago. Post-traumatic pain. COMPARISON: 11/12/13. TECHNIQUE: CT of the thoracic spine is performed without contrast. Reformatted images are submitted. FINDINGS: There is an incompletely evaluated cervical fusion change in the lower cervical spine. There is bilateral apical pleural thickening and calcification. Atherosclerosis of the aorta is ident ified. Mediastinal structures and solid organs are grossly unremarkable. Questionable common bile duct promi nence, incompletely evaluated. There is diffuse bone demineralization. There is vertebra plana at T6 and T8. No evidence of acute compression fracture throughout the thorac ic spine. Vertebroplasty change at T11 and T12 is identified. No malalignment. There is a stable mild compression fracture at L1, unchanged from a CT abdomen and pelvis dated 04/07. Limited evaluation of the contents of the central spinal canal. No high grade central canal stenosis. Mild multilevel neural foraminal narrowing. IMPRESSION: Stable compression fractures throughout the thoracic spine with stable vertebroplasty change. No acut e thoracic spine compression fracture is appreciated. POS: [facility]
== END 2018-06-27 15:42 | disposition home or self-care (01) ==
LOC: ERS 11:10
DX: M54.5 Low back pain (principal); I10 Essential (primary) hypertension; I25.2 Old myocardial infarction; E78.5 Hyperlipidemia, unspecified; J44.9 Chronic obstructive pulmonary disease, unspecified; F41.9 Anxiety disorder, unspecified; F32.9 Major depressive disorder, single episode, unspecified; Z79.899 Other long term (current) drug therapy; Z79.891 Long term (current) use of opiate analgesic; Z79.82 Long term (current) use of aspirin; W06.XXXA Fall from bed, initial encounter
CPT/HCPCS: 36415; 71045; 72070; 72100; 72128; 80053; 85025; 93005

== ENCOUNTER 2018-11-19 21:32 | Emergency (ER) | payer MEDICARE, OTHER ==
--- NOTE | 2018-11-19 22:36 | RAD ---
TWO VIEWS RIGHT HIP: History: Right hip pain after fall. Comparison: 01-31-18 FINDINGS: Two views right hip shows the patient status post right hip arthroplasty without perihardware lucency of fracture. Remottling of the bones of the pelvis of the right pelvis are secondary to remote heale d fractures. IMPRESSION: No evidence of acute osseous abnormality. POS: [facility]
--- NOTE | 2018-11-19 22:38 | RAD ---
SINGLE VIEW OF THE PELVIS: Comparison: 02-01-18 History: Fall at home with swelling and hematoma of the right eye. Patient is on blood thinners. FINDINGS: Single view of the pelvis shows the patient to be status post bilateral hip arthroplasty. There is re mottling of the bones of the pelvis likely secondary to remote healed fractures. No acute fracture or dislocation is seen. IMPRESSION: No evidence of acute osseous abnormality. POS: [facility]
--- NOTE | 2018-11-19 22:40 | CT ---
CT BRAIN WITHOUT CONTRAST: Comparison: 09-10-16 History: Fall and hit head on the floor. Technique: Multiple contiguous axial images were obtained in a CT of the brain without contrast. FINDINGS: There are scattered hypodensities in the subcortical and periventricular white matter, likely seconda ry to small vessel ischemic disease. No large confluent infarction is seen. There is no evidence of h ydrocephalus, intracranial hemorrhage, or extraaxial fluid collections. There is soft tissue swelling in the right frontal scalp. Underlying calvarium is unremarkable. The v isualized paranasal sinuses and mastoid air cells are well aerated. IMPRESSION: No evidence of acute intracranial abnormalities. POS: [facility]
--- NOTE | 2018-11-19 22:44 | CT ---
CT CERVICAL SPINE WITHOUT CONTRAST: History: Fall with head trauma and neck pain. Comparison: 11-11-13 Technique: Multiple contiguous axial images were obtained in a CT of the cervical spine without contr ast. Sagittal and coronal reformats were performed. FINDINGS: Post-surgical changes are seen in the cervical spine. The patient has an anterior plate and screws ex tending from the C4 through C7 levels. Intervening disc spaces are in good position. The plate is not well opposed to the anterior aspect of the vertebral bodies and there appears to be a small amount o f lucency surrounding the screws. This plate may have backed out over time. No prevertebral soft tiss ue swelling is seen. There is no evidence of acute fracture or subluxation. The posterior facets are well aligned. Normal alignment of the cervical spine with the cervical spine is seen. IMPRESSION: 1. No evidence of acute osseous abnormality of the cervical spine. 2. Post-surgical changes of the cervical spine with malpositioned hardware. The plate is not opposed to the anterior aspect of the vertebral bodies and the screws have minimal purchase of the bone which is more prominent superiorly. POS: [facility]
== END 2018-11-19 22:45 | disposition home or self-care (01) ==
LOC: ERS 21:32
DX: S00.03XA Contusion of scalp, initial encounter (principal); S70.01XA Contusion of right hip, initial encounter; E78.5 Hyperlipidemia, unspecified; G62.9 Polyneuropathy, unspecified; F41.9 Anxiety disorder, unspecified; F32.9 Major depressive disorder, single episode, unspecified; Z79.51 Long term (current) use of inhaled steroids; Z79.891 Long term (current) use of opiate analgesic; Z79.899 Other long term (current) drug therapy; W01.198A Fall on same level from slipping, tripping and stumbling with subsequent striking against other object, initial encounter
CPT/HCPCS: 70450; 72125; 72170; 93005

== ENCOUNTER 2018-11-21 09:25 | Emergency (ER) | payer MEDICARE, OTHER ==
[2018-11-21 14:55] LABS: #Lymphocytes 1.3 thou/uL (1.20-3.40); #Monocytes 0.9 thou/uL (0.11-0.59); %Basophils 0.2 % (0.0-1.0); %Eosinophils 0.2 % (0.0-10.0); %Lymphocytes 10.2 % (21.0-51.0); %Monocytes 7.7 % (0.0-10.0); %Neutrophils 81.6 % (42.0-75.0); Hemoglobin 10.7 g/dL (12.0-16.0); Mean Corpuscular HGB CONC 32.4 g/dL (32.0-36.0); Mean Corpuscular Hemoglobin 34.3 pg (27.0-31.0); Mean Platelet Volume 8.8 fL (7.4-10.4); Platelet Count 138 thou/uL (130-400); RBC Distribution Width 12.5 % (11.5-14.5); Red Blood Cell (RBC) Count 3.12 mill/uL (4.20-5.40); White Blood Cell (WBC) Count 12.2 thou/uL (4.8-10.8)
[2018-11-21 15:19] LABS: ALT (SGPT) 29 U/L (8-55); AST (SGOT) 27 U/L (5-34); Albumin 3.3 g/dL (3.4-4.8); Alkaline Phosphatase 76 U/L (40-150); Anion Gap 17 mmol/L (10-20); BUN (Urea Nitrogen) 22 mg/dL (9.8-20.1); Bilirubin, Total 0.5 mg/dL (0.2-1.2); CK (CPK) 91 U/L (29-168); Calc. Creatinine Clearance 0 mL/min (70-130); Calcium 8.5 mg/dL (7.8-10.44); Carbon Dioxide 20 mmol/L (23-31); Chloride 105 mmol/L (98-107); Estimated GFR-MDRD 90; Globulin 2.8 g/dL (2.4-3.5); Glucose 108 mg/dL (83-110); Protein, Total 6.1 g/dL (6.0-8.3); Sodium 138 mmol/L (136-145)
== END 2018-11-21 16:48 ==
LOC: ERS 09:25
DX: M25.551 Pain in right hip (principal); I25.2 Old myocardial infarction; E78.5 Hyperlipidemia, unspecified; I10 Essential (primary) hypertension; J44.9 Chronic obstructive pulmonary disease, unspecified; F41.9 Anxiety disorder, unspecified; F32.9 Major depressive disorder, single episode, unspecified; Z79.899 Other long term (current) drug therapy; Z79.82 Long term (current) use of aspirin
CPT/HCPCS: 36415; 80053; 82550; 85025; 86140; 99284

== ENCOUNTER 2019-01-15 19:23 | Inpatient (IN) | payer MEDICARE, OTHER ==
[2019-01-15] MEDS ORDERED: Pantoprazole 40 MG VIAL ONE (19:37)
[2019-01-15 20:04] LABS: #Lymphocytes 0.9 thou/uL (1.20-3.40); #Monocytes 0.4 thou/uL (0.11-0.59); #Neutrophils 3.9 thou/uL (1.40-6.50); %Basophils 0.2 % (0.0-1.0); %Eosinophils 0.5 % (0.0-10.0); %Lymphocytes 16.5 % (21.0-51.0); %Monocytes 8.5 % (0.0-10.0); %Neutrophils 74.4 % (42.0-75.0); Hemoglobin 9.9 g/dL (12.0-16.0); Mean Corpuscular Hemoglobin 32.2 pg (27.0-31.0); Mean Platelet Volume 8.1 fL (7.4-10.4); Platelet Count 225 thou/uL (130-400); RBC Distribution Width 12.7 % (11.5-14.5); Red Blood Cell (RBC) Count 3.06 mill/uL (4.20-5.40); White Blood Cell (WBC) Count 5.2 thou/uL (4.8-10.8)
[2019-01-15 20:10] LABS: PTT 28.4 SEC (22.9-36.1); Prothrombin Time 13.6 SEC (12.0-14.7)
[2019-01-15 20:15] LABS: Bilirubin Negative (Negative); Blood, Urine Negative (Negative); Clarity CLEAR (Clear); Glucose, Urine (Dipstick) Negative (Negative); Leukocyte Negative (Negative); Nitrite Negative (Negative); Protein, Urine (Dipstick) Negative (Neg-Trace); Specific Gravity, Urine 1.021 (1.002-1.036); Urobilinogen 0.2 mg/dL (0.2-1.0)
[2019-01-15 20:24] LABS: ALT (SGPT) Less than 7 U/L (8-55); AST (SGOT) 13 U/L (5-34); Albumin 3.2 g/dL (3.4-4.8); Alkaline Phosphatase 87 U/L (40-150); Anion Gap 13 mmol/L (10-20); BUN (Urea Nitrogen) 44 mg/dL (9.8-20.1); Bilirubin, Total 0.2 mg/dL (0.2-1.2); Calc. Creatinine Clearance 0 mL/min (70-130); Carbon Dioxide 24 mmol/L (23-31); Chloride 109 mmol/L (98-107); Estimated GFR-MDRD Greater than 90; Globulin 2.5 g/dL (2.4-3.5); Glucose 108 mg/dL (83-110); Potassium 4.4 mmol/L (3.5-5.1); Protein, Total 5.7 g/dL (6.0-8.3); Sodium 142 mmol/L (136-145)
[2019-01-15] MEDS ORDERED: Lorazepam 2 MG/ML VIAL ONE (20:42)
[2019-01-15] MEDS ORDERED: Ondansetron PF 4 MG/2 ML Vial IVP PRN (21:56)
[2019-01-15] MEDS ORDERED: Ondansetron ODT 4 MG TAB PO PRN (21:56)
[2019-01-15] MEDS ORDERED: Acetaminophen 325 MG TAB PO PRN (21:56)
[2019-01-15] MEDS ORDERED: Milk Of Magnesia 30 ML UDCUP PO PRN (21:59)
[2019-01-15] MEDS ORDERED: Loratadine 10 MG TAB PO PRN (21:59)
[2019-01-15] MEDS ORDERED: Albuterol Sulfate 2.5 mg/3 ml Neb NEB PRN (21:59)
[2019-01-15] MEDS ORDERED: Benzonatate 100 MG CAP PO PRN (21:59)
[2019-01-15] MEDS ORDERED: Melatonin 3 MG TAB PO PRN (21:59)
[2019-01-15] MEDS ORDERED: Acetaminophen 500 MG TAB PO SCH (22:00)
[2019-01-15] MEDS ORDERED: Bisacodyl 5 MG TAB PO SCH (22:00)
[2019-01-15 23:45] LABS: Hemoglobin 9.1 g/dL (12.0-16.0)
[2019-01-16] MEDS: Pantoprazole 80 MG in Sodium Chloride 0.9% 100 ML IVP SCH ×2 (00:15→09:05)
[2019-01-16] MEDS: Acetaminophen 500 MG TAB PO SCH ×5 (00:15→23:27)
--- NOTE | 2019-01-16 01:14 | HP ---
PRIMARY CARE PHYSICIAN: Dr. Reina. CODE STATUS: DNR/DNI as stated by patient. TIME OF EVALUATION: 09:50 p.m. CHIEF COMPLAINT: Diarrhea and black stools. HISTORY OF PRESENT ILLNESS: This is a 78-year-old female patient with past medical history of cardiac stents, hyperlipidemia, hypertension, COPD, and low back pain , came to the hospital after having black stool numerous today, very foul smelling , with no clear triggers, no alleviating factors. She also reported that initially was red blood in her stool what she saw. Symptoms are moderate. The patient presented with tachycardia, is receiving fluids. Vital signs have improved. REVIEW OF SYSTEMS: CONSTITUTIONAL: No fever, chills, or generalized weakness. RESPIRATORY: No cough or sputum production. The patient did report shortness of breath. The patient has chronic respiratory failure and has oxygen at home 2 L nasal cannula. CARDIOVASCULAR: No chest pain or palpitation. GASTROINTESTINAL: No nausea. No vomiting. The patient has black stool, multiple during the day. LEARNING FACILITATOR: No dizziness, headache, or feeling lightheaded. GENITOURINARY: No burning on urination. EXTREMITIES: No leg swelling. All other systems were reviewed and negative except for the findings mentioned above. PAST MEDICAL HISTORY: As mentioned in the HPI. FAMILY HISTORY: Reviewed and non contributory for current presentation. PAST SURGICAL HISTORY: Appendectomy, cholecystectomy, hysterectomy, neck surgery, hip surgery, left hip x2, and metal plate in neck. PSYCHIATRIC HISTORY: Anxiety and depression. SOCIAL HISTORY: Alcohol use. Drug use. No smoking history. ALLERGIES: NO KNOWN DRUG ALLERGIES REPORTED. MEDICATIONS: 1. Gabapentin. 2. Mirtazapine. 3. Clopidogrel. 4. Ropinirole. 5. Pantoprazole. PHYSICAL EXAMINATION: VITAL SIGNS: On presentation, heart rate 117, respiratory rate 20, temperature 98.2. Pain 0/10. Oxygen saturation was 97% on room air. GENERAL APPEARANCE: The patient is alert, oriented, not in acute distress. HEENT: Eyes, normal conjunctivae. Moist oral mucosa. Anicteric. No JVD. RESPIRATORY: Bilateral air entry. No rales. No wheezing. Symmetric expansion. CARDIOVASCULAR: The patient is tachycardic with heart rate of 110, regular rhythm. No murmurs, no gallops, no edema. ABDOMEN: Soft. Normal bowel sounds. MUSCULOSKELETAL: Baseline range of motion. No sternal tenderness. SKIN: Warm and intact. No pallor. No rash. No redness. Peripheral pulses are present. Capillary refill seems to be intact. NEURO: No evidence of any new focal weakness. Baseline speech. Cranial nerves seems to be intact. PSYCH: The patient is in good mood. No anxiety. Optimal judgment. LABORATORY DATA: Labs were reviewed. White count is 5.2, hemoglobin 9.9, MCV 101, and platelet count 225. Coagulation; PT 13.6, INR 1.0, and PTT 28.4. Chemistry; sodium 142, potassium 4.4, chloride 109, carbon-dioxide 24, anion gap 13, BUN 44 , creatinine 0.6, GFR greater than 90, glucose 108, calcium 9.0, total bilirubin 0.2, AST 13, ALT less than 7, and alkaline phosphatase 87. Serum total protein 5.7, albumin 3.2, globulin 2.5, albumin-globulin ratio is 1.3. Urine was done, it was negative. ASSESSMENT AND PLAN: The patient will be placed in the hospital with following medical problems: 1. Acute gastrointestinal bleeding. The patient has tachycardia. Blood pressure has remained stable. The patient is receiving some fluids to keep hemodynamics. We will follow CBC, the patient is on Protonix, we will do GI consult in the morning. Reconcile home medications. We will hold aspirin and Plavix for now. 2. Respiratory failure. The patient has a history of chronic obstructive pulmonary disease and wears oxygen at home. We will continue for now. We will reconcile home medications. 3. Chronic obstructive pulmonary disease, seems to be stable, not having exacerbation. We will reconcile home medications. We will adjust treatment as needed. We will continue oxygen support. 4. Hyperlipidemia. Low-cholesterol diet is advised. Reconcile home medications. 5. Hypertension. Blood pressure has been stable. We will hold blood pressure medications. The patient is at risk for hypovolemic shock. 6. Peripheral neuropathy. Reconcile home medications. 7. History of coronary artery disease, it has been stable. We will need to hold aspirin and Plavix for now. This may be restarted in the morning once GI plan for any further workup or treatment. 8. Deep venous thrombosis prophylaxis. Job ID: [id number] [facility]
[2019-01-16 01:24] VITALS: BMI 17.9
[2019-01-16 08:36] LABS: #Lymphocytes 1.8 thou/uL (1.20-3.40); #Monocytes 0.6 thou/uL (0.11-0.59); #Neutrophils 3.2 thou/uL (1.40-6.50); %Basophils 0.5 % (0.0-1.0); %Eosinophils 0.7 % (0.0-10.0); %Lymphocytes 31.3 % (21.0-51.0); %Neutrophils 57.6 % (42.0-75.0); Hemoglobin 9.2 g/dL (12.0-16.0); Mean Corpuscular HGB CONC 31.1 g/dL (32.0-36.0); Mean Corpuscular Hemoglobin 31.9 pg (27.0-31.0); Mean Platelet Volume 8.1 fL (7.4-10.4); Platelet Count 211 thou/uL (130-400); RBC Distribution Width 12.8 % (11.5-14.5); Red Blood Cell (RBC) Count 2.89 mill/uL (4.20-5.40); White Blood Cell (WBC) Count 5.6 thou/uL (4.8-10.8)
[2019-01-16 09:00] LABS: Anion Gap 13 mmol/L (10-20); BUN (Urea Nitrogen) 31 mg/dL (9.8-20.1); Calc. Creatinine Clearance 53 mL/min (70-130); Calcium 8.7 mg/dL (7.8-10.44); Carbon Dioxide 22 mmol/L (23-31); Chloride 112 mmol/L (98-107); Estimated GFR-MDRD Greater than 90; Glucose 100 mg/dL (83-110); Iron 33 ug/dL (50-170); Iron Binding Capacity, Total 213 mcg/dL (265-497); Potassium 3.8 mmol/L (3.5-5.1); Sodium 143 mmol/L (136-145)
[2019-01-16] MEDS: Ferrous Sulfate 325 MG TAB PO SCH ×2 (09:05→16:53)
[2019-01-16] MEDS: rOPINIRole HCl 0.25 MG TAB PO SCH (09:05)
[2019-01-16] MEDS: Mirtazapine 15 MG TAB PO SCH (09:06)
[2019-01-16] MEDS: Ascorbic Acid 500 mg Chewable Tablet PO SCH ×2 (09:06→16:53)
[2019-01-16] MEDS: Gabapentin 300 MG CAP PO SCH ×2 (09:06→20:32)
[2019-01-16] MEDS: Atorvastatin Calcium 40 MG TAB PO SCH (09:06)
[2019-01-16 10:22] LABS: Iron 35 ug/dL (50-170); Iron Binding Capacity, Total 218 mcg/dL (265-497)
[2019-01-16 10:29] LABS: Folate (Folic Acid) 10.9 ng/mL (7.0-31.4)
[2019-01-16] MEDS: Sodium Chloride 0.9% 1,000 ML IV SCH (11:30)
[2019-01-16 12:06] LABS: Hemoglobin 9.2 g/dL (12.0-16.0)
--- NOTE | 2019-01-16 12:35 | CON ---
DATE OF CONSULTATION: 01/16/2019 CHIEF COMPLAINT: Black stool. HISTORY OF PRESENT ILLNESS: Ms. Thomas Merritt is a 78-year-old woman with past medical history significant for coronary artery disease with previous stent placement, hypertension, COPD, and hyperlipidemia, who started having some dark reddish stools yesterday that turned into black stools. She continues to have 2 more episodes at home and 1 in the hospital this morning. Stools described as melenic and black from this morning. She denies having abdominal pain or discomfort. There is no nausea or vomiting. She reportedly has a history of peptic ulcer disease 20 years ago. She is on Plavix and aspirin for her coronary artery disease. Currently, she feels fine without any active GI symptoms. Other than slight tachycardia, her vitals are remained stable. She did have a colonoscopy in [address] Calvert that showed benign polyps and diverticulosis. PAST MEDICAL HISTORY: 1. Hypertension. 2. Coronary artery disease with stent placement. 3. Hyperlipidemia. 4. Chronic obstructive pulmonary disease. 5. Status post appendectomy/cholecystectomy/hysterectomy. 6. Status post hip surgery and neck surgery. ALLERGIES: NONE. MEDICATIONS: At home include: 1. Ropinirole 0.5 mg at bedtime. 2. Iron sulfate. 3. Albuterol inhaler. 4. Mirtazapine 45 mg at bedtime. 5. [place] p.r.n. pain. 6. Aspirin 81 mg daily. 7. Fosamax 70 mg q.week. 8. Plavix 75 mg daily. 9. Coreg 6.25 mg b.i.d. 10. Lipitor 40 mg at bedtime. 11. Lisinopril 5 mg daily. 12. Gabapentin 300 mg t.i.d. 13. Nitrostat p.r.n. SOCIAL HISTORY: The patient lives by herself. Has no tobacco or alcohol use. FAMILY HISTORY: Negative for any known GI problem, liver disease, or GI malignancy. REVIEW OF SYSTEMS: Ten-point review of systems did not show any other pertinent positives or negatives. PHYSICAL EXAMINATION: VITAL SIGNS: Temperature 97.7, blood pressure 128/75, and pulse of 95. GENERAL: She is alert, elderly female, appears weak, but in no distress. HEENT: Shows anicteric sclerae. Oropharynx clear. NECK: Supple. CV: Shows normal S1 and S2. Regular rate and rhythm. CHEST: Shows breath sounds. ABDOMEN: Soft and nontender. No palpable mass or organomegaly. She has active bowel sounds. EXTREMITIES: Show no edema. LABORATORY DATA: Hemoglobin is 9.2, platelet count of 211. Electrolytes within normal range. Creatinine 0.62, bilirubin 0.2, AST of 13, ALT less than 7 , and alkaline phosphatase 87. ASSESSMENT: 1. A 78-year-old female, who presents with initially bloody stools, but since then having melenic stools. I suspect an upper gastrointestinal source of bleeding. She is hemodynamically stable at the present time with fairly stable blood count. 2. Coronary artery disease, status post stent placement, currently on Plavix and aspirin. 3. Hypertension. 4. Chronic obstructive pulmonary disease. RECOMMENDATIONS: 1. Diagnostic upper endoscopy later today. 2. Continue with IV pantoprazole. 3. Further recommendations to follow endoscopic finding. Job ID: [id number] [email or web address]
--- NOTE | 2019-01-16 13:37 | PDOC.PN ---
- Subjective Encounter Start Date: 01/16/19 Encounter Start Time: 08:00 Subjective: no further black stools or abd pain -: no nausea, is npo - Objective Resuscitation Status - Order Detail: 01/15/19 21:56 Resuscitation Status Routine Resuscitation Status: DNAR: NO Resuscitation Discussed with: as stated by patient MAR Reviewed: Yes Vital Signs & Weight: Vital Signs (12 hours) Temp Pulse Resp BP Pulse Ox 01/16/19 07:25 97.7 F 95 18 128/75 100 01/16/19 07:21 96 16 96 01/16/19 06:02 97.7 F 88 18 123/69 98 Weight Weight 98 lb 3.2 oz I&O: 01/15/19 01/16/19 01/17/19 06:59 06:59 06:59 Intake Total 166.4 Balance 166.4 Result Diagrams: 01/16/19 11:17 01/16/19 07:57 Phys Exam - Physical Examination HEENT: PERRLA, moist MMs Neck: no JVD, supple Respiratory: no wheezing, no rales Cardiovascular: RRR, no significant murmur Gastrointestinal: soft, non-tender, positive bowel sounds Musculoskeletal: no edema, pulses present Neurological: non-focal, moves all 4 limbs Psychiatric: normal affect, A&O x 3 Dx/Plan (1) GI bleed Code(s): K92.2 - GASTROINTESTINAL HEMORRHAGE, UNSPECIFIED Status: Acute Qualifiers: GI bleed type/associated pathology: unspecified gastrointestinal hemorrhage type Qualified Code(s): K92.2 - Gastrointestinal hemorrhage, unspecified (2) Chronic anemia Code(s): D64.9 - ANEMIA, UNSPECIFIED Status: Chronic (3) COPD (chronic obstructive pulmonary disease) Status: Chronic Qualifiers: COPD type: unspecified COPD (4) HLD (hyperlipidemia) Code(s): E78.5 - HYPERLIPIDEMIA, UNSPECIFIED Status: Chronic Qualifiers: (5) Anxiety and depression Code(s): F41.8 - OTHER SPECIFIED ANXIETY DISORDERS Status: Chronic (6) CAD (coronary artery disease) Code(s): I25.10 - ATHSCL HEART DISEASE OF [place] CORONARY ARTERY W/O ANG PCTRS Status: Chronic Qualifiers: Coronary Disease-Associated Artery/Lesion type: [place] artery [place] vs. transplanted heart: [place] heart Associated angina: without angina Qualified Code(s): I25.10 - Atherosclerotic heart disease of [place] coronary artery without angina pectoris (7) GERD (gastroesophageal reflux disease) Code(s): K21.9 - GASTRO-ESOPHAGEAL REFLUX DISEASE WITHOUT ESOPHAGITIS Status: Chronic Qualifiers: Esophagitis presence: esophagitis presence not specified (8) HTN (hypertension) Code(s): I10 - ESSENTIAL (PRIMARY) HYPERTENSION Status: Chronic Qualifiers: - Plan is on protonix drip -: continue lipitor, oral iron, duonebs, neurontin -: likely egd this afternoon -: h/h is stable -: gentle iv hydration until she can eat * . Review of Systems - Medications/Allergies Allergies/Adverse Reactions: Allergies Allergy/AdvReac Type Severity Reaction Status Date / Time No Known Allergies Allergy Verified 01/16/19 01:21 Medications: Current Medications Acetaminophen (Tylenol) 650 mg PO Q4H PRN PRN Reason: Headache/Fever/Mild Pain (1-3) Acetaminophen (Tylenol) 1,000 mg PO Q6HR [facility] Last Admin: 01/16/19 11:30 Dose: 1,000 mg Albuterol Sulfate (Ventolin) 2.5 mg NEB [id number] PRN PRN Reason: Wheezing Albuterol/Ipratropium (Duoneb) 3 ml NEB [id number] [facility] Last Admin: 01/16/19 07:21 Dose: 3 ml Ascorbic Acid (Vitamin C) 500 mg PO BID-[facility] Last Admin: 01/16/19 09:06 Dose: 500 mg Atorvastatin Calcium (Lipitor) 40 mg PO DAILY [facility] Last Admin: 01/16/19 09:06 Dose: 40 mg Benzonatate (Tessalon) 100 mg PO Q4H PRN PRN Reason: Cough Bisacodyl (Dulcolax) 10 mg PO DAILYPRN [facility] Ferrous Sulfate (Feosol) 325 mg PO BID-[facility] Last Admin: 01/16/19 09:05 Dose: 325 mg Gabapentin (Neurontin) 300 mg PO BID [facility] Last Admin: 01/16/19 09:06 Dose: 300 mg Pantoprazole Sodium 80 mg/ (Sodium Chloride) 100 mls @ 10 mls/hr IVP INF [facility] Last Admin: 01/16/19 09:05 Dose: 100 mls Sodium Chloride (Normal Saline 0.9%) 1,000 mls @ 70 mls/hr IV .[id number] [facility] Last Admin: 01/16/19 11:30 Dose: 1,000 mls Loratadine (Claritin) 10 mg PO DAILYPRN PRN PRN Reason: Sinus Symptoms Magnesium Hydroxide (Milk Of Magnesium) 30 ml PO DAILYPRN PRN PRN Reason: Constipation Melatonin (Melatonin) 3 mg PO HS PRN PRN Reason: Insomnia Mirtazapine (Remeron) 30 mg PO DAILY [facility] Last Admin: 01/16/19 09:06 Dose: 30 mg Ondansetron HCl (Zofran Odt) 4 mg PO Q6H PRN PRN Reason: Nausea/Vomiting Ondansetron HCl (Zofran) 4 mg IVP Q6H PRN PRN Reason: Nausea/Vomiting Ropinirole HCl (Requip) 0.25 mg PO DAILY [facility] Last Admin: 01/16/19 09:05 Dose: 0.25 mg
[2019-01-16] MEDS ORDERED: Lidocaine 1% PF 5 ML VIAL ONE (15:19)
[2019-01-16] MEDS ORDERED: PROPOFOL 200 MG/20 ML VIAL ONE (15:19)
--- NOTE | 2019-01-16 20:19 | OP ---
DATE OF PROCEDURE: 01/16/2019 PROCEDURE PERFORMED: Esophagogastroduodenoscopy with biopsy. PREMEDICATION: Given by Anesthesiology Department. PREPROCEDURE DIAGNOSIS: Melenic stool. POSTPROCEDURE DIAGNOSES: 1. Incisura ulcers x2, both with clean craters. 2. Diffuse gastritis with heme staining. DESCRIPTION OF PROCEDURE: Written consents were obtained prior to procedure. After adequate sedation, the forward viewing endoscope was advanced down the stomach under direct vision to the second portion of duodenum. The duodenum in the duodenal bulb appeared normal. The pylorus was patent. The gastric antrum appeared normal. In the incisura, there was 2 ulcers each measured approximately 1 cm in length with clean crater. There was no visible vessel or adherent clot. The body fundus and cardia appeared normal except for diffuse gastritis characterized as erythema and petechial appearance. There is heme staining throughout the stomach. No signs of active bleeding seen. Retroflexion was normal. The GE junction with regular Z-line was seen at 36 cm. The lower, mid, and upper esophagus appeared normal. Biopsies obtained from the distal stomach to evaluate for H. pylori. The patient tolerated the procedure well without any complication. ASSESSMENT: 1. Two gastric incisura ulcers, clean crater with low risk of rebleeding. 2. Diffuse gastritis with heme staining. RECOMMENDATIONS: 1. Advance diet. 2. Can change to oral pantoprazole 40 mg p.o. daily. 3. Follow up on biopsy results. 4. The patient can be discharged home in the next 24 to 36 hours if no signs of rebleeding and if she tolerates her diet well. Job ID: [id number]
[2019-01-17] MEDS: Sodium Chloride 0.9% 1,000 ML IV SCH ×2 (01:37→15:45)
[2019-01-17] MEDS: Acetaminophen 500 MG TAB PO SCH ×4 (04:16→23:32)
[2019-01-17 06:27] LABS: #Eosinphils 0.1 thou/uL (0.0-0.7); #Monocytes 0.7 thou/uL (0.11-0.59); #Neutrophils 5.4 thou/uL (1.40-6.50); %Basophils 0.3 % (0.0-1.0); %Eosinophils 1.1 % (0.0-10.0); %Lymphocytes 23.9 % (21.0-51.0); %Monocytes 8.2 % (0.0-10.0); %Neutrophils 66.5 % (42.0-75.0); Hemoglobin 8.7 g/dL (12.0-16.0); Mean Corpuscular HGB CONC 31.1 g/dL (32.0-36.0); Platelet Count 235 thou/uL (130-400); RBC Distribution Width 12.9 % (11.5-14.5); Red Blood Cell (RBC) Count 2.73 mill/uL (4.20-5.40); White Blood Cell (WBC) Count 8.1 thou/uL (4.8-10.8)
[2019-01-17 06:43] LABS: Anion Gap 12 mmol/L (10-20); BUN (Urea Nitrogen) 16 mg/dL (9.8-20.1); Calc. Creatinine Clearance 51 mL/min (70-130); Calcium 8.6 mg/dL (7.8-10.44); Carbon Dioxide 20 mmol/L (23-31); Chloride 114 mmol/L (98-107); Estimated GFR-MDRD 90; Glucose 98 mg/dL (83-110); Sodium 142 mmol/L (136-145)
[2019-01-17] MEDS: Gabapentin 300 MG CAP PO SCH ×2 (08:54→19:54)
[2019-01-17] MEDS: Atorvastatin Calcium 40 MG TAB PO SCH (08:54)
[2019-01-17] MEDS: rOPINIRole HCl 0.25 MG TAB PO SCH (08:54)
[2019-01-17] MEDS: Mirtazapine 15 MG TAB PO SCH (08:54)
[2019-01-17] MEDS: Ferrous Sulfate 325 MG TAB PO SCH (08:55)
[2019-01-17] MEDS: Ascorbic Acid 500 mg Chewable Tablet PO SCH ×2 (08:55→16:59)
--- NOTE | 2019-01-17 10:44 | PDOC.PN ---
- Subjective Encounter Start Date: 01/17/19 Encounter Start Time: 07:00 Subjective: had multiple loose stool last night, last one was before midnight -: no nausea, is tolerating oral diet -: feels weak, a bit dizzy to ambulate - Objective Resuscitation Status - Order Detail: 01/15/19 21:56 Resuscitation Status Routine Resuscitation Status: DNAR: NO Resuscitation Discussed with: as stated by patient MAR Reviewed: Yes Vital Signs & Weight: Vital Signs (12 hours) Pulse Resp Pulse Ox 01/17/19 06:47 101 H 16 95 Weight Weight 98 lb 3.2 oz I&O: 01/16/19 01/17/19 01/18/19 06:59 06:59 06:59 Intake Total 166.4 1100 Output Total 650 Balance 166.4 450 Result Diagrams: 01/17/19 05:54 01/17/19 05:54 Phys Exam - Physical Examination HEENT: PERRLA, moist MMs Neck: no JVD, supple Respiratory: no wheezing, no rales Cardiovascular: RRR, no significant murmur Gastrointestinal: soft, non-tender, positive bowel sounds Musculoskeletal: no edema, pulses present Neurological: non-focal, moves all 4 limbs Psychiatric: normal affect, A&O x 3 Dx/Plan (1) GI bleed Code(s): K92.2 - GASTROINTESTINAL HEMORRHAGE, UNSPECIFIED Status: Resolved Qualifiers: GI bleed type/associated pathology: gastric ulcer Qualified Code(s): K25.4 - Chronic or unspecified gastric ulcer with hemorrhage (2) Chronic anemia Code(s): D64.9 - ANEMIA, UNSPECIFIED Status: Chronic Comment: mild ac blood loss anemia (3) COPD (chronic obstructive pulmonary disease) Status: Chronic Qualifiers: COPD type: unspecified COPD (4) HLD (hyperlipidemia) Code(s): E78.5 - HYPERLIPIDEMIA, UNSPECIFIED Status: Chronic Qualifiers: (5) Anxiety and depression Code(s): F41.8 - OTHER SPECIFIED ANXIETY DISORDERS Status: Chronic (6) CAD (coronary artery disease) Code(s): I25.10 - ATHSCL HEART DISEASE OF [place] CORONARY ARTERY W/O ANG PCTRS Status: Chronic Qualifiers: Coronary Disease-Associated Artery/Lesion type: [place] artery [place] vs. transplanted heart: [place] heart Associated angina: without angina Qualified Code(s): I25.10 - Atherosclerotic heart disease of [place] coronary artery without angina pectoris (7) GERD (gastroesophageal reflux disease) Code(s): K21.9 - GASTRO-ESOPHAGEAL REFLUX DISEASE WITHOUT ESOPHAGITIS Status: Chronic Qualifiers: Esophagitis presence: esophagitis presence not specified (8) HTN (hypertension) Code(s): I10 - ESSENTIAL (PRIMARY) HYPERTENSION Status: Chronic Qualifiers: - Plan stool cultures, likely diarrhea from old blood induced? -: continue iv fluids, pt is feeling a bit exhausted from diarrhea -: oral diet -: dc plan in am, to mobilize when she feels better -: continue neurontin, protonix, remeron, hold oral iron pills * . Review of Systems - Medications/Allergies Allergies/Adverse Reactions: Allergies Allergy/AdvReac Type Severity Reaction Status Date / Time No Known Allergies Allergy Verified 01/16/19 01:21 Medications: Current Medications Acetaminophen (Tylenol) 650 mg PO Q4H PRN PRN Reason: Headache/Fever/Mild Pain (1-3) Acetaminophen (Tylenol) 1,000 mg PO Q6HR [facility] Last Admin: 01/17/19 08:54 Dose: 1,000 mg Albuterol Sulfate (Ventolin) 2.5 mg NEB [id number] PRN PRN Reason: Wheezing Albuterol/Ipratropium (Duoneb) 3 ml NEB [id number] [facility] Last Admin: 01/17/19 06:47 Dose: 3 ml Ascorbic Acid (Vitamin C) 500 mg PO BID-[facility] Last Admin: 01/17/19 08:55 Dose: 500 mg Atorvastatin Calcium (Lipitor) 40 mg PO DAILY [facility] Last Admin: 01/17/19 08:54 Dose: 40 mg Benzonatate (Tessalon) 100 mg PO Q4H PRN PRN Reason: Cough Bisacodyl (Dulcolax) 10 mg PO DAILYPRN [facility] Ferrous Sulfate (Feosol) 325 mg PO BID-[facility] Last Admin: 01/17/19 08:55 Dose: 325 mg Gabapentin (Neurontin) 300 mg PO BID [facility] Last Admin: 01/17/19 08:54 Dose: 300 mg Sodium Chloride (Normal Saline 0.9%) 1,000 mls @ 70 mls/hr IV .[id number] [facility] Stop: 01/18/19 15:19 Loratadine (Claritin) 10 mg PO DAILYPRN PRN PRN Reason: Sinus Symptoms Magnesium Hydroxide (Milk Of Magnesium) 30 ml PO DAILYPRN PRN PRN Reason: Constipation Melatonin (Melatonin) 3 mg PO HS PRN PRN Reason: Insomnia Mirtazapine (Remeron) 30 mg PO DAILY [facility] Last Admin: 01/17/19 08:54 Dose: 30 mg Ondansetron HCl (Zofran Odt) 4 mg PO Q6H PRN PRN Reason: Nausea/Vomiting Ondansetron HCl (Zofran) 4 mg IVP Q6H PRN PRN Reason: Nausea/Vomiting Pantoprazole Sodium (Protonix) 40 mg PO BID [facility] Last Admin: 01/17/19 08:54 Dose: 40 mg Ropinirole HCl (Requip) 0.25 mg PO DAILY [facility] Last Admin: 01/17/19 08:54 Dose: 0.25 mg
--- NOTE | 2019-01-17 15:41 | PRG ---
DATE OF SERVICE: 01/17/2019 SUBJECTIVE: The patient denies any nausea or vomiting. She is tolerating regular diet. There are no signs of bleeding. She has not ambulated. She had diarrhea last night but none today. OBJECTIVE: VITAL SIGNS: Pulse of 99, respirations 16, O2 saturation of 95 on room air. GENERAL: She is alert, oriented, but frail elderly female, but in no distress. HEENT: Anicteric sclerae. NECK: Supple. CV: Normal S1 and S2. Regular rate and rhythm. CHEST: Breath sounds. ABDOMEN: Flat, soft, nontender. Active bowel sounds. EXTREMITIES: No edema. LABORATORY DATA: WBCs 8.1, hemoglobin 8.7, and platelet count of 235. Electrolytes within normal range. Creatinine 0.64. ASSESSMENT: 1. Two gastric ulcers on EGD. Low risk for rebleeding. 2. Status post upper gastrointestinal bleed. 3. Anemia from acute blood loss, overall stable. PLAN: 1. Continue with pantoprazole p.o. 40 mg b.i.d. 2. Continue with regular diet. 3. Out of bed and ambulate. 4. The patient can be discharged home tomorrow if continues to do well. Job ID: [id number] [facility]
[2019-01-18] MEDS: Sodium Chloride 0.9% 1,000 ML IV SCH (04:30)
[2019-01-18] MEDS: Acetaminophen 500 MG TAB PO SCH ×3 (05:50→16:56)
[2019-01-18] MEDS: Atorvastatin Calcium 40 MG TAB PO SCH (08:09)
[2019-01-18] MEDS: Gabapentin 300 MG CAP PO SCH ×2 (08:09→22:11)
[2019-01-18] MEDS: Ascorbic Acid 500 mg Chewable Tablet PO SCH ×2 (08:09→16:56)
[2019-01-18] MEDS: Mirtazapine 15 MG TAB PO SCH (08:09)
[2019-01-18] MEDS: rOPINIRole HCl 0.25 MG TAB PO SCH (08:09)
--- NOTE | 2019-01-18 14:44 | PDOC.PN ---
- Subjective Encounter Start Date: 01/18/19 Encounter Start Time: 11:30 Subjective: no further diarrhea from yest afternoon -: no nausea, is tolerating oral diet -: has not amb yet - Objective Resuscitation Status - Order Detail: 01/15/19 21:56 Resuscitation Status Routine Resuscitation Status: DNAR: NO Resuscitation Discussed with: as stated by patient MAR Reviewed: Yes Vital Signs & Weight: Vital Signs (12 hours) Temp Pulse Resp BP Pulse Ox 01/18/19 14:32 78 16 94 L 01/18/19 07:45 97.9 F 89 17 105/50 L 95 01/18/19 06:08 81 16 95 01/18/19 05:11 98.6 F 81 16 119/63 95 Weight Weight 98 lb 3.2 oz I&O: 01/17/19 01/18/19 01/19/19 06:59 06:59 06:59 Intake Total 1100 700 Output Total 650 1000 Balance 450 -300 Result Diagrams: 01/17/19 05:54 01/17/19 05:54 Phys Exam - Physical Examination HEENT: PERRLA, moist MMs Neck: no JVD, supple Respiratory: no wheezing, no rales Cardiovascular: RRR, no significant murmur Gastrointestinal: soft, non-tender, positive bowel sounds Musculoskeletal: no edema, pulses present Neurological: non-focal, moves all 4 limbs Psychiatric: normal affect, A&O x 3 Dx/Plan (1) GI bleed Code(s): K92.2 - GASTROINTESTINAL HEMORRHAGE, UNSPECIFIED Status: Resolved Qualifiers: GI bleed type/associated pathology: gastric ulcer Qualified Code(s): K25.4 - Chronic or unspecified gastric ulcer with hemorrhage (2) Chronic anemia Code(s): D64.9 - ANEMIA, UNSPECIFIED Status: Chronic Comment: mild ac blood loss anemia (3) COPD (chronic obstructive pulmonary disease) Status: Chronic Qualifiers: COPD type: unspecified COPD (4) HLD (hyperlipidemia) Code(s): E78.5 - HYPERLIPIDEMIA, UNSPECIFIED Status: Chronic Qualifiers: (5) Anxiety and depression Code(s): F41.8 - OTHER SPECIFIED ANXIETY DISORDERS Status: Chronic (6) CAD (coronary artery disease) Code(s): I25.10 - ATHSCL HEART DISEASE OF [place] CORONARY ARTERY W/O ANG PCTRS Status: Chronic Qualifiers: Coronary Disease-Associated Artery/Lesion type: [place] artery [place] vs. transplanted heart: [place] heart Associated angina: without angina Qualified Code(s): I25.10 - Atherosclerotic heart disease of [place] coronary artery without angina pectoris (7) GERD (gastroesophageal reflux disease) Code(s): K21.9 - GASTRO-ESOPHAGEAL REFLUX DISEASE WITHOUT ESOPHAGITIS Status: Chronic Qualifiers: Esophagitis presence: esophagitis presence not specified (8) HTN (hypertension) Code(s): I10 - ESSENTIAL (PRIMARY) HYPERTENSION Status: Chronic Qualifiers: - Plan diarrhea sec to melena resolved -: deconditioning, await PT/OT eval, likely swing/rehab -: h/h is stable, may dc if placement is ready -: continue protonix, neurontin, remeron, lipitor -: to restart iron tabs in 24hrs (held due to diarrhea) * . Review of Systems - Medications/Allergies Allergies/Adverse Reactions: Allergies Allergy/AdvReac Type Severity Reaction Status Date / Time No Known Allergies Allergy Verified 01/16/19 01:21 Medications: Current Medications Acetaminophen (Tylenol) 650 mg PO Q4H PRN PRN Reason: Headache/Fever/Mild Pain (1-3) Acetaminophen (Tylenol) 1,000 mg PO Q6HR [facility] Last Admin: 01/18/19 11:36 Dose: 1,000 mg Albuterol Sulfate (Ventolin) 2.5 mg NEB [id number] PRN PRN Reason: Wheezing Albuterol/Ipratropium (Duoneb) 3 ml NEB [id number] [facility] Last Admin: 01/18/19 14:32 Dose: 3 ml Ascorbic Acid (Vitamin C) 500 mg PO BID-WM [facility] Last Admin: 01/18/19 08:09 Dose: 500 mg Atorvastatin Calcium (Lipitor) 40 mg PO DAILY [facility] Last Admin: 01/18/19 08:09 Dose: 40 mg Benzonatate (Tessalon) 100 mg PO Q4H PRN PRN Reason: Cough Bisacodyl (Dulcolax) 10 mg PO DAILYPRN [facility] Gabapentin (Neurontin) 300 mg PO BID [facility] Last Admin: 01/18/19 08:09 Dose: 300 mg Sodium Chloride (Normal Saline 0.9%) 1,000 mls @ 70 mls/hr IV .[id number] [facility] Stop: 01/18/19 15:19 Last Admin: 01/18/19 04:30 Dose: 1,000 mls Loratadine (Claritin) 10 mg PO DAILYPRN PRN PRN Reason: Sinus Symptoms Magnesium Hydroxide (Milk Of Magnesium) 30 ml PO DAILYPRN PRN PRN Reason: Constipation Melatonin (Melatonin) 3 mg PO HS PRN PRN Reason: Insomnia Mirtazapine (Remeron) 30 mg PO DAILY [facility] Last Admin: 01/18/19 08:09 Dose: 30 mg Ondansetron HCl (Zofran Odt) 4 mg PO Q6H PRN PRN Reason: Nausea/Vomiting Ondansetron HCl (Zofran) 4 mg IVP Q6H PRN PRN Reason: Nausea/Vomiting Pantoprazole Sodium (Protonix) 40 mg PO BID [facility] Last Admin: 01/18/19 08:09 Dose: 40 mg Ropinirole HCl (Requip) 0.25 mg PO DAILY [facility] Last Admin: 01/18/19 08:09 Dose: 0.25 mg
--- NOTE | 2019-01-18 16:21 | PRG ---
DATE OF SERVICE: 01/18/2019 SUBJECTIVE: The patient feels much better today. She is much more engaging and conversant. She is tolerating diet. Denies any nausea, vomiting, or abdominal pain. She was able to get out of bed, ambulating to the bathroom with assistance. OBJECTIVE: VITAL SIGNS: Temperature is 97.9, blood pressure 105/50, and pulse is 78. GENERAL: She is alert, in no distress. HEENT: Anicteric sclerae. Oropharynx show poor dentition. CV: Normal S1 and S2. Regular rate and rhythm. CHEST: Breath sounds. ABDOMEN: Soft. No distention. No tympany. No tenderness. She has active bowel sounds. EXTREMITIES: No edema. LABORATORY DATA: Pathology, gastric biopsy negative for H. pylori. ASSESSMENT: 1. Status post upper GI bleed, resolved. 2. Two gastric ulcers seen on EGD, 01/16/2019 with low risk for rebleeding. 3. Anemia from GI blood loss. 4. Deconditioning, improving. RECOMMENDATIONS: 1. Continue pantoprazole p.o. b.i.d. 2. Continue diet. 3. Continue with PT, awaiting rehab placement. 4. Overall stable from GI standpoint. Dr. Grove is on-call for GI this weekend. Please call if needed. Job ID: [id number]
[2019-01-19] MEDS: Acetaminophen 500 MG TAB PO SCH ×4 (00:15→16:52)
[2019-01-19] MEDS: HYDROcodone/Acetaminophen 5/325 mg Tablet PO PRN ×3 (00:15→21:00)
[2019-01-19] MEDS: Mirtazapine 15 MG TAB PO SCH (08:14)
[2019-01-19] MEDS: rOPINIRole HCl 0.25 MG TAB PO SCH (08:14)
[2019-01-19] MEDS: Ascorbic Acid 500 mg Chewable Tablet PO SCH ×2 (08:14→16:52)
[2019-01-19] MEDS: Atorvastatin Calcium 40 MG TAB PO SCH (08:15)
[2019-01-19] MEDS: Gabapentin 300 MG CAP PO SCH ×2 (08:15→20:32)
--- NOTE | 2019-01-19 13:36 | PDOC.PN ---
- Subjective Encounter Start Date: 01/19/19 Encounter Start Time: 11:00 Subjective: no sob or dizziness -: no diarrhea now -: feels better but still weak - Objective Resuscitation Status - Order Detail: 01/15/19 21:56 Resuscitation Status Routine Resuscitation Status: DNAR: NO Resuscitation Discussed with: as stated by patient MAR Reviewed: Yes Vital Signs & Weight: Vital Signs (12 hours) Temp Pulse Resp BP Pulse Ox 01/19/19 13:19 98.1 F 86 16 110/54 L 94 L 01/19/19 13:12 98.1 F 86 16 110/54 L 94 L 01/19/19 08:52 98.4 F 88 16 133/79 97 01/19/19 08:00 97 01/19/19 07:41 92 16 01/19/19 05:26 97.9 F 87 16 110/56 L 92 L Weight Weight 98 lb 3.2 oz I&O: 01/18/19 01/19/19 01/20/19 06:59 06:59 06:59 Intake Total 700 2040 240 Output Total 1000 Balance -300 2040 240 Result Diagrams: 01/17/19 05:54 01/17/19 05:54 Phys Exam - Physical Examination HEENT: PERRLA, moist MMs Neck: no JVD, supple Respiratory: no wheezing, no rales Cardiovascular: RRR, no significant murmur Gastrointestinal: soft, non-tender, no distention, positive bowel sounds Musculoskeletal: no edema, pulses present Neurological: non-focal, moves all 4 limbs Psychiatric: normal affect, A&O x 3 Dx/Plan (1) GI bleed Code(s): K92.2 - GASTROINTESTINAL HEMORRHAGE, UNSPECIFIED Status: Resolved Qualifiers: GI bleed type/associated pathology: gastric ulcer Qualified Code(s): K25.4 - Chronic or unspecified gastric ulcer with hemorrhage (2) Chronic anemia Code(s): D64.9 - ANEMIA, UNSPECIFIED Status: Chronic Comment: mild ac blood loss anemia (3) COPD (chronic obstructive pulmonary disease) Status: Chronic Qualifiers: COPD type: unspecified COPD (4) HLD (hyperlipidemia) Code(s): E78.5 - HYPERLIPIDEMIA, UNSPECIFIED Status: Chronic Qualifiers: (5) Anxiety and depression Code(s): F41.8 - OTHER SPECIFIED ANXIETY DISORDERS Status: Chronic (6) CAD (coronary artery disease) Code(s): I25.10 - ATHSCL HEART DISEASE OF [place] CORONARY ARTERY W/O ANG PCTRS Status: Chronic Qualifiers: Coronary Disease-Associated Artery/Lesion type: [place] artery [place] vs. transplanted heart: [place] heart Associated angina: without angina Qualified Code(s): I25.10 - Atherosclerotic heart disease of [place] coronary artery without angina pectoris (7) GERD (gastroesophageal reflux disease) Code(s): K21.9 - GASTRO-ESOPHAGEAL REFLUX DISEASE WITHOUT ESOPHAGITIS Status: Chronic Qualifiers: Esophagitis presence: esophagitis presence not specified (8) HTN (hypertension) Code(s): I10 - ESSENTIAL (PRIMARY) HYPERTENSION Status: Chronic Qualifiers: - Plan diarrhea resolved -: awaiting placement for deconditioning -: continue protonix, lipitor, nebs, neurontin, remeron, requip -: to mobilize with PT as tolerated -: may dc if placement is ready * . Review of Systems - Medications/Allergies Allergies/Adverse Reactions: Allergies Allergy/AdvReac Type Severity Reaction Status Date / Time No Known Allergies Allergy Verified 01/16/19 01:21 Medications: Current Medications Acetaminophen (Tylenol) 650 mg PO Q4H PRN PRN Reason: Headache/Fever/Mild Pain (1-3) Acetaminophen (Tylenol) 1,000 mg PO Q6HR [facility] Last Admin: 01/19/19 12:17 Dose: 1,000 mg Hydrocodone Bitart/Acetaminophen ([place] 5/325) 1 tab PO Q8H PRN PRN Reason: Moderate Pain (4-6) Last Admin: 01/19/19 05:52 Dose: 1 tab Albuterol Sulfate (Ventolin) 2.5 mg NEB [id number] PRN PRN Reason: Wheezing Albuterol/Ipratropium (Duoneb) 3 ml NEB [id number] [facility] Last Admin: 01/19/19 07:41 Dose: 3 ml Ascorbic Acid (Vitamin C) 500 mg PO BID-[facility] Last Admin: 01/19/19 08:14 Dose: 500 mg Atorvastatin Calcium (Lipitor) 40 mg PO DAILY [facility] Last Admin: 01/19/19 08:15 Dose: 40 mg Benzonatate (Tessalon) 100 mg PO Q4H PRN PRN Reason: Cough Bisacodyl (Dulcolax) 10 mg PO DAILYPRN [facility] Gabapentin (Neurontin) 300 mg PO BID [facility] Last Admin: 01/19/19 08:15 Dose: 300 mg Loratadine (Claritin) 10 mg PO DAILYPRN PRN PRN Reason: Sinus Symptoms Magnesium Hydroxide (Milk Of Magnesium) 30 ml PO DAILYPRN PRN PRN Reason: Constipation Melatonin (Melatonin) 3 mg PO HS PRN PRN Reason: Insomnia Mirtazapine (Remeron) 30 mg PO DAILY [facility] Last Admin: 01/19/19 08:14 Dose: 30 mg Ondansetron HCl (Zofran Odt) 4 mg PO Q6H PRN PRN Reason: Nausea/Vomiting Ondansetron HCl (Zofran) 4 mg IVP Q6H PRN PRN Reason: Nausea/Vomiting Pantoprazole Sodium (Protonix) 40 mg PO BID [facility] Last Admin: 01/19/19 08:14 Dose: 40 mg Ropinirole HCl (Requip) 0.25 mg PO DAILY [facility] Last Admin: 01/19/19 08:14 Dose: 0.25 mg
[2019-01-20] MEDS: Acetaminophen 500 MG TAB PO SCH ×5 (01:39→23:45)
[2019-01-20] MEDS: Ascorbic Acid 500 mg Chewable Tablet PO SCH ×2 (07:56→16:56)
[2019-01-20] MEDS: Atorvastatin Calcium 40 MG TAB PO SCH (07:57)
[2019-01-20] MEDS: Mirtazapine 15 MG TAB PO SCH (07:57)
[2019-01-20] MEDS: rOPINIRole HCl 0.25 MG TAB PO SCH (07:57)
[2019-01-20] MEDS: Gabapentin 300 MG CAP PO SCH ×2 (07:57→19:39)
--- NOTE | 2019-01-20 10:33 | PDOC.PN ---
- Subjective Encounter Start Date: 01/20/19 Encounter Start Time: 08:00 Subjective: no diarrhea or abd pain -: no bleeding per rectum -: knee pain is better on narco - Objective Resuscitation Status - Order Detail: 01/15/19 21:56 Resuscitation Status Routine Resuscitation Status: DNAR: NO Resuscitation Discussed with: as stated by patient KATY Reviewed: Yes Vital Signs & Weight: Vital Signs (12 hours) Temp Pulse Resp BP Pulse Ox 01/20/19 08:00 98 01/20/19 07:00 98.3 F 99 16 128/67 96 Weight Weight 98 lb 3.2 oz I&O: 01/19/19 01/20/19 01/21/19 06:59 06:59 06:59 Intake Total 2039 970 240 Output Total 450 Balance 0 520 240 Result Diagrams: 01/17/19 05:54 01/17/19 05:54 Phys Exam - Physical Examination HEENT: PERRLA, moist MMs Neck: no JVD, supple Respiratory: no wheezing, no rales Cardiovascular: RRR, no significant murmur Gastrointestinal: soft, non-tender, positive bowel sounds Musculoskeletal: no edema, pulses present Neurological: non-focal, moves all 4 limbs Psychiatric: normal affect, A&O x 3 Dx/Plan (1) GI bleed Code(s): K92.2 - GASTROINTESTINAL HEMORRHAGE, UNSPECIFIED Status: Resolved Qualifiers: GI bleed type/associated pathology: gastric ulcer Qualified Code(s): K25.4 - Chronic or unspecified gastric ulcer with hemorrhage (2) Chronic anemia Code(s): D64.9 - ANEMIA, UNSPECIFIED Status: Chronic Comment: mild ac blood loss anemia (3) COPD (chronic obstructive pulmonary disease) Status: Chronic Qualifiers: COPD type: unspecified COPD (4) HLD (hyperlipidemia) Code(s): E78.5 - HYPERLIPIDEMIA, UNSPECIFIED Status: Chronic Qualifiers: (5) Anxiety and depression Code(s): F41.8 - OTHER SPECIFIED ANXIETY DISORDERS Status: Chronic (6) CAD (coronary artery disease) Code(s): I25.10 - ATHSCL HEART DISEASE OF [place] CORONARY ARTERY W/O ANG PCTRS Status: Chronic Qualifiers: Coronary Disease-Associated Artery/Lesion type: [place] artery [place] vs. transplanted heart: [place] heart Associated angina: without angina Qualified Code(s): I25.10 - Atherosclerotic heart disease of [place] coronary artery without angina pectoris (7) GERD (gastroesophageal reflux disease) Code(s): K21.9 - GASTRO-ESOPHAGEAL REFLUX DISEASE WITHOUT ESOPHAGITIS Status: Chronic Qualifiers: Esophagitis presence: esophagitis presence not specified (8) HTN (hypertension) Code(s): I10 - ESSENTIAL (PRIMARY) HYPERTENSION Status: Chronic Qualifiers: - Plan will try lidocaine tts to one knee to see if it helps her OA pain -: hemostable -: awaiting placement -: protonix, neurontin, remeron, requip and lipitor -: mobilize as tolerated * . Review of Systems - Medications/Allergies Allergies/Adverse Reactions: Allergies Allergy/AdvReac Type Severity Reaction Status Date / Time No Known Allergies Allergy Verified 01/16/19 01:21 Medications: Current Medications Acetaminophen (Tylenol) 650 mg PO Q4H PRN PRN Reason: Headache/Fever/Mild Pain (1-3) Acetaminophen (Tylenol) 1,000 mg PO Q6HR [facility] Last Admin: 01/20/19 05:18 Dose: Not Given Hydrocodone Bitart/Acetaminophen ([place] 5/325) 1 tab PO Q8H PRN PRN Reason: Moderate Pain (4-6) Last Admin: 01/19/19 21:00 Dose: 1 tab Albuterol Sulfate (Ventolin) 2.5 mg NEB [id number] PRN PRN Reason: Wheezing Albuterol/Ipratropium (Duoneb) 3 ml NEB [id number] [facility] Last Admin: 01/20/19 07:00 Dose: 3 ml Ascorbic Acid (Vitamin C) 500 mg PO BID-[facility] Last Admin: 01/20/19 07:56 Dose: 500 mg Atorvastatin Calcium (Lipitor) 40 mg PO DAILY [facility] Last Admin: 01/20/19 07:57 Dose: 40 mg Benzonatate (Tessalon) 100 mg PO Q4H PRN PRN Reason: Cough Bisacodyl (Dulcolax) 10 mg PO DAILYPRN [facility] Gabapentin (Neurontin) 300 mg PO BID [facility] Last Admin: 01/20/19 07:57 Dose: 300 mg Lidocaine (Lidoderm 5% Patch) 1 patch TD DAILY [facility] Loratadine (Claritin) 10 mg PO DAILYPRN PRN PRN Reason: Sinus Symptoms Magnesium Hydroxide (Milk Of Magnesium) 30 ml PO DAILYPRN PRN PRN Reason: Constipation Melatonin (Melatonin) 3 mg PO HS PRN PRN Reason: Insomnia Mirtazapine (Remeron) 30 mg PO DAILY [facility] Last Admin: 01/20/19 07:57 Dose: 30 mg Ondansetron HCl (Zofran Odt) 4 mg PO Q6H PRN PRN Reason: Nausea/Vomiting Ondansetron HCl (Zofran) 4 mg IVP Q6H PRN PRN Reason: Nausea/Vomiting Pantoprazole Sodium (Protonix) 40 mg PO BID [facility] Last Admin: 01/20/19 07:57 Dose: 40 mg Ropinirole HCl (Requip) 0.25 mg PO DAILY [facility] Last Admin: 01/20/19 07:57 Dose: 0.25 mg
[2019-01-20] MEDS: Lidocaine 5% Patch TD SCH (11:07)
[2019-01-20] MEDS: HYDROcodone/Acetaminophen 5/325 mg Tablet PO PRN (19:38)
[2019-01-20] MEDS ORDERED: Lidocaine Patch Removal 1 EACH TOP SCH (23:00)
[2019-01-21] MEDS: Acetaminophen 500 MG TAB PO SCH ×2 (05:06→11:20)
[2019-01-21] MEDS: Mirtazapine 15 MG TAB PO SCH (08:26)
[2019-01-21] MEDS: Ascorbic Acid 500 mg Chewable Tablet PO SCH (08:26)
[2019-01-21] MEDS: rOPINIRole HCl 0.25 MG TAB PO SCH (08:26)
[2019-01-21] MEDS: Gabapentin 300 MG CAP PO SCH (08:27)
[2019-01-21] MEDS: Atorvastatin Calcium 40 MG TAB PO SCH (08:27)
[2019-01-21] MEDS: Lidocaine 5% Patch TD SCH (11:20)
--- NOTE | 2019-01-21 13:29 | PDOC.PN ---
- Subjective Encounter Start Date: 01/21/19 Encounter Start Time: 08:50 Subjective: feels good, says lidocaine is helping her knee - Objective Resuscitation Status - Order Detail: 01/15/19 21:56 Resuscitation Status Routine Resuscitation Status: DNAR: NO Resuscitation Discussed with: as stated by patient KATY Reviewed: Yes Vital Signs & Weight: Vital Signs (12 hours) Temp Pulse Resp BP Pulse Ox 01/21/19 11:42 98.2 F 87 20 127/69 96 01/21/19 08:00 97.9 F 101 H 18 144/71 H 92 L 01/21/19 06:37 89 14 96 Weight Weight 98 lb 3.2 oz I&O: 01/20/19 01/21/19 01/22/19 06:59 06:59 06:59 Intake Total 970 1020 Output Total 450 450 Balance 520 570 Result Diagrams: 01/17/19 05:54 01/17/19 05:54 Phys Exam - Physical Examination HEENT: PERRLA, moist MMs Neck: no JVD, supple Respiratory: no wheezing, no rales Cardiovascular: RRR, no significant murmur Gastrointestinal: soft, non-tender, no distention, positive bowel sounds Musculoskeletal: no edema, pulses present Neurological: non-focal, moves all 4 limbs Psychiatric: normal affect, A&O x 3 Dx/Plan (1) GI bleed Code(s): K92.2 - GASTROINTESTINAL HEMORRHAGE, UNSPECIFIED Status: Resolved Qualifiers: GI bleed type/associated pathology: gastric ulcer Qualified Code(s): K25.4 - Chronic or unspecified gastric ulcer with hemorrhage (2) Chronic anemia Code(s): D64.9 - ANEMIA, UNSPECIFIED Status: Chronic Comment: mild ac blood loss anemia (3) COPD (chronic obstructive pulmonary disease) Status: Chronic Qualifiers: COPD type: unspecified COPD (4) HLD (hyperlipidemia) Code(s): E78.5 - HYPERLIPIDEMIA, UNSPECIFIED Status: Chronic Qualifiers: (5) Anxiety and depression Code(s): F41.8 - OTHER SPECIFIED ANXIETY DISORDERS Status: Chronic (6) CAD (coronary artery disease) Code(s): I25.10 - ATHSCL HEART DISEASE OF [place] CORONARY ARTERY W/O ANG PCTRS Status: Chronic Qualifiers: Coronary Disease-Associated Artery/Lesion type: [place] artery [place] vs. transplanted heart: [place] heart Associated angina: without angina Qualified Code(s): I25.10 - Atherosclerotic heart disease of [place] coronary artery without angina pectoris (7) GERD (gastroesophageal reflux disease) Code(s): K21.9 - GASTRO-ESOPHAGEAL REFLUX DISEASE WITHOUT ESOPHAGITIS Status: Chronic Qualifiers: Esophagitis presence: esophagitis presence not specified (8) HTN (hypertension) Code(s): I10 - ESSENTIAL (PRIMARY) HYPERTENSION Status: Chronic Qualifiers: - Plan hemostable -: may dc if placement is ready or home with HH if she amb -: continue lipitor, neurontin, feso4, remeron, nebs, protonix -: to amb with PT as tolerated * . Review of Systems - Medications/Allergies Allergies/Adverse Reactions: Allergies Allergy/AdvReac Type Severity Reaction Status Date / Time No Known Allergies Allergy Verified 01/16/19 01:21 Medications: Current Medications Acetaminophen (Tylenol) 650 mg PO Q4H PRN PRN Reason: Headache/Fever/Mild Pain (1-3) Acetaminophen (Tylenol) 1,000 mg PO Q6HR [facility] Last Admin: 01/21/19 11:20 Dose: 1,000 mg Hydrocodone Bitart/Acetaminophen ([place] 5/325) 1 tab PO Q8H PRN PRN Reason: Moderate Pain (4-6) Last Admin: 01/20/19 19:38 Dose: 1 tab Albuterol Sulfate (Ventolin) 2.5 mg NEB [id number] PRN PRN Reason: Wheezing Albuterol/Ipratropium (Duoneb) 3 ml NEB [id number] [facility] Last Admin: 01/21/19 06:37 Dose: 3 ml Ascorbic Acid (Vitamin C) 500 mg PO BID-WM [facility] Last Admin: 01/21/19 08:26 Dose: 500 mg Atorvastatin Calcium (Lipitor) 40 mg PO DAILY [facility] Last Admin: 01/21/19 08:27 Dose: 40 mg Benzonatate (Tessalon) 100 mg PO Q4H PRN PRN Reason: Cough Bisacodyl (Dulcolax) 10 mg PO DAILYPRN [facility] Gabapentin (Neurontin) 300 mg PO BID [facility] Last Admin: 01/21/19 08:27 Dose: 300 mg Lidocaine (Lidoderm 5% Patch) 1 patch TD 1100 [facility] Last Admin: 01/21/19 11:20 Dose: 1 patch Loratadine (Claritin) 10 mg PO DAILYPRN PRN PRN Reason: Sinus Symptoms Magnesium Hydroxide (Milk Of Magnesium) 30 ml PO DAILYPRN PRN PRN Reason: Constipation Melatonin (Melatonin) 3 mg PO HS PRN PRN Reason: Insomnia Mirtazapine (Remeron) 30 mg PO DAILY [facility] Last Admin: 01/21/19 08:26 Dose: 30 mg Miscellaneous Medication (Lidocaine Patch Removal) 1 each TOP 2300 [facility] Last Admin: 01/20/19 23:28 Dose: Not Given Ondansetron HCl (Zofran Odt) 4 mg PO Q6H PRN PRN Reason: Nausea/Vomiting Ondansetron HCl (Zofran) 4 mg IVP Q6H PRN PRN Reason: Nausea/Vomiting Pantoprazole Sodium (Protonix) 40 mg PO BID [facility] Last Admin: 01/21/19 08:27 Dose: 40 mg Ropinirole HCl (Requip) 0.25 mg PO DAILY [facility] Last Admin: 01/21/19 08:26 Dose: 0.25 mg
[2019-01-21 15:37] VITALS: BP 120/58; TEMP 97.9
== END 2019-01-21 15:45 | disposition home health service (06) | DRG 378 ==
LOC: ERS 19:23 → T4-B 21:00
PROVIDERS: ADMIT Hospitalist; ATTEND Hospitalist
PROC: 0DB68ZX Excision of Stomach, Via Natural or Artificial Opening Endoscopic, Diagnostic (ICD-10-PCS; principal; 2019-01-16)
DX: K25.4 Chronic or unspecified gastric ulcer with hemorrhage (principal); J96.10 Chronic respiratory failure, unspecified whether with hypoxia or hypercapnia; D62 Acute posthemorrhagic anemia; K29.60 Other gastritis without bleeding; Z66 Do not resuscitate; I10 Essential (primary) hypertension; E78.5 Hyperlipidemia, unspecified; J44.9 Chronic obstructive pulmonary disease, unspecified; M54.5 Low back pain; F41.9 Anxiety disorder, unspecified; F32.9 Major depressive disorder, single episode, unspecified; G62.9 Polyneuropathy, unspecified; I25.10 Atherosclerotic heart disease of native coronary artery without angina pectoris; K21.9 Gastro-esophageal reflux disease without esophagitis; K57.90 Diverticulosis of intestine, part unspecified, without perforation or abscess without bleeding; E86.0 Dehydration; M17.10 Unilateral primary osteoarthritis, unspecified knee; Z95.5 Presence of coronary angioplasty implant and graft; Z99.81 Dependence on supplemental oxygen; Z79.899 Other long term (current) drug therapy; Z79.02 Long term (current) use of antithrombotics/antiplatelets; Z79.51 Long term (current) use of inhaled steroids
CPT/HCPCS: 36415; 51701; 80048; 80053; 81003; 82274; 82607; 82728; 82746; 83540; 83550; 85025; 85610; 85730; 86850; 86900; 86901; 88305; 88312; 94640; 96361; 96374; 96375; A4353; C9113; J2001; J2060; J2704; J7050; J7620

== ENCOUNTER 2019-03-08 08:20 | Outpatient (CLI) | payer MEDICARE, OTHER ==
--- NOTE | 2019-03-08 10:39 | MRI ---
MRI THORACIC SPINE NONCONTRAST: DATE: 03/08/2019. HISTORY: A 78-year-old female with S22.00A wedge compression fracture of unspecified thoracic vertebra, ini tia encounter for closed fracture. Severe mid back pain. COMPARISON: No prior MRIs of the thoracic spine. There is a CT of 06/27/2018. FINDINGS: ACDF hardware throughout most of the cervical spine down to C7. Compression deformities with greater than 50% loss of height of T6, T8, T10, T11, and T12. Loss of height involves greater than 75% for most of these. The T10 compression fracture is new since the previous CT. Again noted is the verteb roplasty cement within T8, T11, and T12. T12 is the most severely collapsed. There is moderate degr ee of T2 hyperintense signal abnormality involving the T10 vertebral body consistent with subacute co mpression fracture. The signal abnormality is transversely oriented, consistent with benign, osteopo rotic fracture. There is at least mild bony retropulsion involving all of the collapsed vertebral adonis dies, qualifying them as at least mild burst fractures. There is minimal dilation of the central can al of the spinal cord throughout almost the entire thoracic spinal cord (minimal hydromyelia). There is no cord edema or myelomalacia. No significant central spinal canal stenosis at any level, with t he relative exception of T12-L1, where the combination of bony retropulsion of T12, as well as mild b reyna retropulsion of the posterior superior end plate of L1 (unchanged since the previous study) resul ts in mild central spinal canal stenosis. Moderate neural foraminal stenosis is present at multiple levels throughout the mid and lower thoracic spine. No hematoma in the perivertebral spaces. IMPRESSION: 1. Old burst fractures of T8, T11, and T12, treated with vertebroplasty, with no major interval boyle ge compared to 06/27/2018 CT. 2. Compression fracture/burst fracture of T10 is new since 06/27/2018, and subacute. These are all os teoporotic fractures. 3. No high grade central spinal canal stenosis or cord impingement at any level. POS: [facility]
--- NOTE | 2019-03-08 10:52 | MRI ---
MRI lumbar spine noncontrast: HISTORY: Wedge compression fracture of the lumbar vertebra. COMPARISON: 08/01/2014 Correlation: Abdomen pelvis CT 11/30/2018 FINDINGS: Heterogeneous marrow signal intensity of the lumbar vertebra is noted. Stable vertebroplasty change a t T11 and T12. Stable loss of vertebral body height from T10 through T12. T1 marrow signal hypointensity with associated T2 and STIR hyperintensity involving the L3 vertebral body with extension of abnormal signal intensity in both pedicles, left greater than right. There is mild loss of vertebral body height. Acute mild osteoporotic fracture favored. Appropriate signal intensity in the visualized solid organs. Stable T2 hyperintensities emanating fro m the lower pole of the left kidney, compatible with cyst. Symmetric signal intensity of the paraspinal muscles. No retroperitoneal mass, lymphadenopathy or hematoma Conus medullaris terminates at the inferior aspect of L1. There does appear to be T2 and STIR marrow signal hyperintensity at T10. Possibility of a subacute fr acture in this region cannot be excluded. Refer to dedicated thoracic spine MRI for further detail. T12-L1:Axial images are not included. Based upon the sagittal images, no high-grade central canal guillermo nosis. Moderate to severe bilateral neural foraminal narrowing L1-2:Minimal left or right paracentral disc bulge. No significant central canal stenosis. Severe righ t and moderate left foraminal narrowing. L2-3:Adequate disc hydration. Minimal left and right paracentral disc bulges along with posterior didier ment hypertrophy results in mild central canal stenosis. Moderate to severe right and mild left foraminal narrowing. L3-4:Adequate disc hydration. Generalized disc bulge, ligament flavum thickening and facet hypertroph y result in mild central canal stenosis. Left greater than right narrowing of subarticular zones secondary to disc material and posterior element hypertrophy. There may be some mass effect without o bscuration of bilateral traversing L4 nerve roots L4-5:Mild to moderate loss of disc space height. Generalized disc bulge, ligament flavum thickening a nd facet hypertrophy result in mild loss. Narrowing of both subarticular zones, right greater than left. Partial obscuration the traversing right L5 nerve root. No significant obscuration traversing l eft L5 nerve root. Mild right and moderate left foraminal narrowing L5-S1:Generalized disc bulge without significant central canal stenosis. Narrowing of the right subar ticular zone with partial obscuration the traversing right S1 nerve root. Left subarticular zone is unremarkable. There does appear to be a left hemilaminectomy defect. Mild to moderate bilateral jannet inal narrowing. IMPRESSION: 1. Acute mild compression fracture at L3. 2. Subacute T10 compression fracture. Correlate clinically. 3. Varying degrees of central canal stenosis and neural foraminal narrowing as detailed above.
== END 2019-03-08 08:21 | disposition home or self-care (01) ==
LOC: TBSIIMAG 08:20
PROVIDERS: ATTEND Specialist
DX: S22.070D Wedge compression fracture of T9-T10 vertebra, subsequent encounter for fracture with routine healing (principal); S32.030D Wedge compression fracture of third lumbar vertebra, subsequent encounter for fracture with routine healing; M48.061 Spinal stenosis, lumbar region without neurogenic claudication; M48.07 Spinal stenosis, lumbosacral region; Z98.890 Other specified postprocedural states
CPT/HCPCS: 72146; 72148

== ENCOUNTER 2019-03-25 11:32 | Inpatient (IN) | payer MEDICARE, OTHER ==
--- NOTE | 2019-03-25 13:20 | ULT ---
LEFT LOWER EXTREMITY VENOUS DUPLEX ULTRASOUND INCLUDING COLOR AND SPECTRAL DOPPLER IMAGING: Date: 03/25/19 HISTORY: Leg pain. TECHNIQUE: Exam performed from groin to ankle including visualized greater saphenous, common femoral, superficia l femoral, profunda femoral, popliteal, trifurcation, and posterior tibial vein regions. FINDINGS: There is extensive occlusive and nearly occlusive thrombus involving the left common femoral, greater saphenous, profunda femoral, superficial femoral, and popliteal veins, evidence for extensive deep v enous thrombosis. IMPRESSION: Extensive deep venous thrombosis. Findings discussed with Eladia Kimble in the ER at 1300 hours. CODE CR. POS: [facility]
[2019-03-25] MEDS ORDERED: ISOVUE-370 76%-LOCM 1 ML ONE (13:43)
[2019-03-25 14:24] LABS: #Lymphocytes 1.1 thou/uL (1.20-3.40); #Neutrophils 7.2 thou/uL (1.40-6.50); %Basophils 0.1 % (0.0-1.0); %Eosinophils 0.2 % (0.0-10.0); %Lymphocytes 11.7 % (21.0-51.0); %Monocytes 10.7 % (0.0-10.0); %Neutrophils 77.4 % (42.0-75.0); Hemoglobin 9.9 g/dL (12.0-16.0); Mean Corpuscular HGB CONC 30.8 g/dL (32.0-36.0); Mean Corpuscular Volume 87.8 fL (78.0-98.0); Platelet Count 206 thou/uL (130-400); RBC Distribution Width 15.7 % (11.5-14.5); Red Blood Cell (RBC) Count 3.64 mill/uL (4.20-5.40); White Blood Cell (WBC) Count 9.4 thou/uL (4.8-10.8)
[2019-03-25 14:32] LABS: INR-International Normal Ratio 1.1; PTT 32.5 SEC (22.9-36.1); Prothrombin Time 13.8 SEC (12.0-14.7)
[2019-03-25 14:44] LABS: ALT (SGPT) Less than 7 U/L (8-55); AST (SGOT) 11 U/L (5-34); Albumin 3.6 g/dL (3.4-4.8); Alkaline Phosphatase 94 U/L (40-150); Anion Gap 14 mmol/L (10-20); BUN (Urea Nitrogen) 11 mg/dL (9.8-20.1); Bilirubin, Total 0.5 mg/dL (0.2-1.2); Calc. Creatinine Clearance 0 mL/min (70-130); Calcium 9.3 mg/dL (7.8-10.44); Carbon Dioxide 31 mmol/L (23-31); Chloride 94 mmol/L (98-107); Estimated GFR-MDRD Greater than 90; Globulin 3.3 g/dL (2.4-3.5); Glucose 99 mg/dL (83-110); Potassium 3.7 mmol/L (3.5-5.1); Protein, Total 6.9 g/dL (6.0-8.3); Sodium 135 mmol/L (136-145)
--- NOTE | 2019-03-25 16:40 | CT ---
EXAM: CT PULMONARY ANGIO CHEST WITH 3D RENDERING: History: History of DVT, chest tightness. FINDINGS: There is no CT evidence for acute pulmonary embolism. There are some hyperinflation chronic lung boyle ges noted bilaterally with some prominent pleural based parenchymal scarring in the upper lung zones with some pleural calcification, stable. There is a poorly circumscribed somewhat spiculated mass portia suring 0.7 x 1.1 cm diameter in the right middle lobe laterally which appears to be new when compared to a prior 12-24-14 study. There is a small stable circumscribed subpleural nodule in the more anteri or aspect of the right middle lobe. There is a small irregular density somewhat linear in appearance in the right lower lobe, this has more the appearance of a small scar or small focal area of other pa renchymal density. No significant pleural effusion. No pericardial effusion. Severe bone demineraliza tion with numerous vertebroplasty changes. IMPRESSION: No convincing CT evidence for acute pulmonary embolism. Poorly circumscribed somewhat spiculated smal l mass or nodule in the right middle lobe, new from prior CT, concerning for a small malignancy. Stab le hyperinflation and chronic lung changes with some biapical pleural thickening. Small linear irregu lar density in the right lower lobe, nonspecific, possibly a very small patch of pneumonitis, subsegm ental atelectasis or mild scarring. POS: [facility]
[2019-03-25] MEDS ORDERED: Enoxaparin Sodium 60 MG/0.6 ML SYRINGE ONE (16:46)
[2019-03-25] MEDS ORDERED: Acetaminophen 325 MG TAB PO PRN (19:11)
[2019-03-25] MEDS ORDERED: Ondansetron PF 4 MG/2 ML Vial IVP PRN (19:11)
[2019-03-25] MEDS ORDERED: Nitroglycerin 0.4 MG TAB (25 Tab Bottle) SL PRN (19:15)
--- NOTE | 2019-03-25 19:21 | PDOC.EVN ---
Event Note - Event Note Event Note: H&P #[id number]
[2019-03-25 19:40] LABS: Hemoglobin 10.1 g/dL (12.0-16.0); Platelet Count 216 thou/uL (130-400)
[2019-03-25 20:19] VITALS: BMI 19.6
[2019-03-25] MEDS ORDERED: Heparin 25,000 units/D5W 500 ML ONE (21:29)
[2019-03-25] MEDS: Atorvastatin Calcium 40 MG TAB PO SCH (21:40)
[2019-03-25] MEDS: rOPINIRole HCl 0.5 MG TAB PO SCH (21:41)
[2019-03-25] MEDS: Heparin 10,000 UNITS/ 10 ML VIAL SLOW IVP SCH (21:46)
[2019-03-25] MEDS: Heparin 25,000 units/D5W 500 ML IVPB SCH (21:48)
--- NOTE | 2019-03-26 01:12 | HP ---
CHIEF COMPLAINT: Left lower extremity swelling. HISTORY OF PRESENT ILLNESS: This is a 78-year-old female, who presented to the ER with left lower extremity swelling. The patient is not providing a very good history. History obtained mainly from chart review, as well as ER documentation. Of note, the patient had a recent knee surgery about a week ago, was discharged home and noted to have left lower extremity swelling. At this point in time of admission and evaluation during the ER, the patient was found to have an extensive left lower extremity DVT on ultrasound scan. The patient also had a CT of the chest done which did not show any PE, however, did show a spiculated mass on the imaging studies. The patient states that apart from the leg pain and swelling, she has no other issues or complaints. Denies any other alleviating or aggravating factors. The patient does state over and over again while she was informed about the spiculated mass that she does not want to be resuscitated if her heart stops or she stops breathing. No family member at bedside. Phone call available in chart. Phone call placed to the number. No response. REVIEW OF SYSTEMS: All systems reviewed, pertinent positive HPI, otherwise negative. FAMILY HISTORY: None. SOCIAL HISTORY: Nondrinker. Prior smoker, currently does not smoke. HOME MEDICATIONS: See JAN. ALLERGIES: NONE. PHYSICAL EXAMINATION: VITAL SIGNS: Blood pressure 154/64, pulse of 81, O2 saturations 97% on room air, respiratory rate of 16. GENERAL: The patient sitting in her chair, refuses to sit in the bed due to claustrophobia. No acute discomfort. HEENT: Temporal wasting. Pupils equal, round, and reactive to light and accommodation. Extraocular muscles intact. Oral cavity moist and pink. NECK: Supple, mobile, nontender. Thyroid appreciated. CARDIOVASCULAR: Regular rate and rhythm. S1 and S2. Borderline systolic ejection murmur appreciated. PULMONARY: Clear to auscultation bilaterally. No wheezing or rhonchi or rales appreciated. ABDOMEN: Positive bowel sounds. Soft, nontender, and nondistended. EXTREMITIES: 2+ peripheral pulses noted. Trace pitting edema in left lower extremity noted. NEUROLOGICAL: Cranial nerves 2 through 12 intact. No loss of sensory function. LABORATORY DATA: Reviewed. IMAGING STUDIES: Reviewed. ASSESSMENT: 1. Left lower extremity deep venous thrombosis. 2. Hypertension. 3. Anemia. 4. Hyperlipidemia. 5. Spiculated mass on CT. PLAN: At this point in time, we will admit the patient to Internal Medicine Team. Consult Pulmonary. We will start the patient on heparin drip for now with plans to transition to probably warfarin or Eliquis at the time of discharge. We will await Pulmonary evaluation for this spiculated mass. We will also repeat blood work in the morning. Gautam khan for her COPD. The patient wishes to remain a DNR as mentioned earlier. After lengthy discussion, case and plan discussed with the patient at length. She understood and agreed with this plan. Job ID: [id number]
[2019-03-26] MEDS: Sodium Chloride 0.9% 1,000 ML IV SCH ×3 (01:39→16:01)
[2019-03-26 04:32] LABS: #Monocytes 0.9 thou/uL (0.11-0.59); #Neutrophils 5.6 thou/uL (1.40-6.50); %Basophils 0.1 % (0.0-1.0); %Eosinophils 0.2 % (0.0-10.0); %Lymphocytes 13.3 % (21.0-51.0); %Monocytes 11.4 % (0.0-10.0); Hemoglobin 9.1 g/dL (12.0-16.0); Mean Corpuscular HGB CONC 30.8 g/dL (32.0-36.0); Mean Corpuscular Hemoglobin 26.9 pg (27.0-31.0); Mean Corpuscular Volume 87.3 fL (78.0-98.0); Mean Platelet Volume 8.8 fL (7.4-10.4); Platelet Count 198 thou/uL (130-400); RBC Distribution Width 15.7 % (11.5-14.5); Red Blood Cell (RBC) Count 3.39 mill/uL (4.20-5.40); White Blood Cell (WBC) Count 7.5 thou/uL (4.8-10.8)
[2019-03-26 04:47] LABS: Anion Gap 19 mmol/L (10-20); BUN (Urea Nitrogen) 10 mg/dL (9.8-20.1); Calc. Creatinine Clearance 52 mL/min (70-130); Calcium 8.8 mg/dL (7.8-10.44); Carbon Dioxide 25 mmol/L (23-31); Chloride 95 mmol/L (98-107); Estimated GFR-MDRD Greater than 90; Glucose 93 mg/dL (83-110); Potassium 3.3 mmol/L (3.5-5.1); Sodium 136 mmol/L (136-145)
[2019-03-26] MEDS: HYDROcodone/Acetaminophen 5/325 mg Tablet PO PRN (05:52)
[2019-03-26] MEDS: Carvedilol 6.25 MG TAB PO SCH ×2 (08:18→16:53)
[2019-03-26] MEDS: Aspirin 81 mg Enteric Coated Tablet PO SCH (08:18)
[2019-03-26] MEDS ORDERED: Lorazepam 2 MG/ML VIAL ONE (10:08)
[2019-03-26] MEDS: Lorazepam 2 MG/ML VIAL SLOW IVP PRN ×2 (10:08→21:50)
[2019-03-26] MEDS: Heparin 10,000 UNITS/ 10 ML VIAL SLOW IVP SCH (11:19)
--- NOTE | 2019-03-26 14:33 | PDOC.PN ---
- Subjective Encounter Start Date: 03/26/19 Encounter Start Time: 14:31 Patient seen and examined, son at bedside, all questions answered. No new issues overnight. - Objective Resuscitation Status - Order Detail: 03/25/19 19:11 Resuscitation Status Routine Resuscitation Status: DNAR: NO Resuscitation Discussed with: Patient Vital Signs & Weight: Vital Signs (12 hours) Temp Pulse Resp BP Pulse Ox 03/26/19 11:27 97.6 F 78 15 96/50 L 93 L 03/26/19 07:11 98.0 F 67 15 126/58 L 93 L 03/26/19 04:00 97.6 F 81 16 130/61 92 L Weight Weight 94 lb 6.4 oz I&O: 03/25/19 03/26/19 03/27/19 06:59 06:59 06:59 Intake Total 480 Output Total 225 Balance 255 Result Diagrams: 03/26/19 04:19 03/26/19 04:19 Phys Exam - Physical Examination Constitutional: NAD HEENT: PERRLA, moist MMs, sclera anicteric temporal wasting Respiratory: no wheezing, no rales Cardiovascular: RRR, no rub faint murmur appreciated Gastrointestinal: soft, non-tender, no distention, positive bowel sounds Musculoskeletal: no edema, pulses present Dx/Plan (1) DVT (deep venous thrombosis) Code(s): I82.409 - ACUTE EMBOLISM AND THOMBOS UNSP DEEP VN UNSP LOWER EXTREMITY Status: Acute (2) Lung mass Code(s): R91.8 - OTHER NONSPECIFIC ABNORMAL FINDING OF LUNG FIELD Status: Acute (3) CAD (coronary artery disease) Code(s): I25.10 - ATHSCL HEART DISEASE OF [place] CORONARY ARTERY W/O ANG PCTRS Status: Chronic Qualifiers: Coronary Disease-Associated Artery/Lesion type: [place] artery [place] vs. transplanted heart: [place] heart Associated angina: without angina Qualified Code(s): I25.10 - Atherosclerotic heart disease of [place] coronary artery without angina pectoris (4) HLD (hyperlipidemia) Code(s): E78.5 - HYPERLIPIDEMIA, UNSPECIFIED Status: Chronic Qualifiers: (5) HTN (hypertension) Code(s): I10 - ESSENTIAL (PRIMARY) HYPERTENSION Status: Chronic Qualifiers: - Plan * potassium replaced * pulmonary consult pending * labs in AM * CXR in AM * plan d/w patient's son Rivera ([phone]), who states that the patient has lost some weight recently, he understood and agreed with current plan
[2019-03-26] MEDS ORDERED: Potassium Chloride 10 MEQ in Premix Bag 1 BAG IVPB SCH (14:45)
[2019-03-26] MEDS: rOPINIRole HCl 0.5 MG TAB PO SCH (20:58)
[2019-03-26] MEDS: Atorvastatin Calcium 40 MG TAB PO SCH (20:58)
--- NOTE | 2019-03-26 23:51 | CON ---
DATE OF CONSULTATION: 03/26/2019 HISTORY OF PRESENT ILLNESS: Ms. Merritt is a 78-year-old female. She was admitted yesterday afternoon. I was consulted for a lung mass. According to the ER records, she presented with left leg swelling. This is where a thrombus was identified. CT pulmonary angiogram was done, which showed an 11-mm density in the right middle lobe. PAST MEDICAL HISTORY: Remarkable for: 1. Appendectomy. 2. History of cholecystectomy. 3. Status post hysterectomy. 4. History of cervical spine surgery. 5. History of admission in December of this year for dark red and black bowel movements. She underwent endoscopy with Dr. Fraga, which revealed two ulcers and gastritis. 6. She has history of coronary stenting in the past. 7. She has a history of lipid disorder. 8. History of chronic obstructive pulmonary disease. 9. History of admission in January of 2018 with a femur fracture, leading to a surgical repair. 10. History of depression and anxiety. 11. History of frequent falls according to old records. 12. History of colon polyps. 13. History of chronic pain. 14. History of reflux disease. 15. History of an L5 laminectomy and facetectomy in 2008. 16. History of T11-T12 compression fracture with kyphoplasty. 17. History of C4 through C7 anterior diskectomy. 18. History of placement of a drug-eluting stent in her LAD in 2014. 19. She is a nonsmoker and nondrinker. ALLERGIES: SHE REPORTS ALLERGY TO CODEINE. FAMILY HISTORY: Negative for lung disease in early age. SOCIAL HISTORY: She is a nonsmoker and nondrinker. REVIEW OF SYSTEMS: 10 point review of systems completed, not accurately obtainable. She would only answer sentences with one word. I have placed it in my note back in 2017 that I was concerned that she might have dementia. It is unclear to me whether or not this has really ever been worked up from reviewing all the medical records. PHYSICAL EXAMINATION: GENERAL: She is in no distress. She is very cachectic appearing and frail-appearing, much older than her age. VITAL SIGNS: She is afebrile. Heart rate 84, respiratory rate 16, oximetry is 93% on room air, blood pressure 158/90. HEENT: Pupils reactive. Sclerae anicteric. Extraocular movements appear to be full. She kept her eyes closed most of the exam. NECK: Supple without lymphadenopathy. LUNGS: Clear. HEART: Regular rhythm. S1 and S2 are normal. ABDOMEN: Soft and nontender without guarding. EXTREMITIES: Without asymmetry. The left lower extremity is slightly larger than the right lower extremity. IMPRESSION: 1. Deep venous thrombosis. 2. An 11-mm density on chest CT. Probably we would do nothing more for this for now other than repeat a CT scan in 3 months. 3. With her variable p.o. intake, warfarin probably is not a good choice for her. 4. There is a documentation that she is a Do Not Resuscitate patient. I am not sure she is a candidate for workup of this density. That certainly can be followed. 5. It does not say who her primary care physician is on the last discharge summary and she was received in [facility]. TIME SPENT: This was a 50-minute consult, with greater than 50% of the time was spent on the unit coordinating care. Job ID: [id number] MTDD
[2019-03-27] MEDS: Heparin 25,000 units/D5W 500 ML IVPB SCH (03:58)
[2019-03-27 05:41] LABS: #Eosinphils 0.1 thou/uL (0.0-0.7); #Monocytes 0.7 thou/uL (0.11-0.59); #Neutrophils 3.1 thou/uL (1.40-6.50); %Basophils 0.3 % (0.0-1.0); %Eosinophils 1.3 % (0.0-10.0); %Lymphocytes 20.4 % (21.0-51.0); %Monocytes 14.4 % (0.0-10.0); %Neutrophils 63.6 % (42.0-75.0); Hemoglobin 8.7 g/dL (12.0-16.0); Mean Corpuscular HGB CONC 30.4 g/dL (32.0-36.0); Mean Corpuscular Hemoglobin 26.7 pg (27.0-31.0); Mean Corpuscular Volume 87.7 fL (78.0-98.0); Mean Platelet Volume 9.2 fL (7.4-10.4); Platelet Count 209 thou/uL (130-400); RBC Distribution Width 15.6 % (11.5-14.5); Red Blood Cell (RBC) Count 3.26 mill/uL (4.20-5.40); White Blood Cell (WBC) Count 4.8 thou/uL (4.8-10.8)
[2019-03-27] MEDS: Sodium Chloride 0.9% 1,000 ML IV SCH ×2 (06:03→20:26)
[2019-03-27 06:04] LABS: Anion Gap 12 mmol/L (10-20); BUN (Urea Nitrogen) 4 mg/dL (9.8-20.1); Calc. Creatinine Clearance 67 mL/min (70-130); Calcium 8.4 mg/dL (7.8-10.44); Carbon Dioxide 26 mmol/L (23-31); Chloride 101 mmol/L (98-107); Estimated GFR-MDRD Greater than 90; Glucose 94 mg/dL (83-110); Sodium 136 mmol/L (136-145)
--- NOTE | 2019-03-27 08:17 | RAD ---
CHEST 1 VIEW PORTABLE: Date: 03/27/19 HISTORY: Follow-up lung mass from prior CT. COMPARISON: 03/25/19. FINDINGS: Pleural and parenchymal opacity changes are noted bilaterally, including some biapical pleural thicke grant, as well as some poorly defined fibronodular changes in the upper and mid lung zones without a d iscrete mass. Bone demineralization with numerous vertebroplasty changes. No significant new process. IMPRESSION: Extensive chronic lung changes. Prior mass seen on CT not discretely evident on this study, although there is some fibronodular parenchymal change in the right mid and upper lung zone. This mass is prob ably too small to discretely image on plain film. POS: HERMINIO
[2019-03-27] MEDS: Aspirin 81 mg Enteric Coated Tablet PO SCH (09:01)
[2019-03-27] MEDS: Carvedilol 6.25 MG TAB PO SCH ×2 (09:01→16:35)
--- NOTE | 2019-03-27 10:12 | PRG ---
DATE OF SERVICE: 03/27/2019 SUBJECTIVE: Ashlee Merritt received Ativan last night. She is very difficult to arouse this morning. She was handling her secretions. I was told she received Ativan the night before as well intravenously, which led to difficulty getting any history out of her yesterday morning. OBJECTIVE: GENERAL: She is in no distress. VITAL SIGNS: She is afebrile. Heart rate is 79, respiratory rate is 30, oximetry is 96% on room air, blood pressure 150/70. LUNGS: Clear. HEART: Regular rhythm. ABDOMEN: Soft without guarding. EXTREMITIES: Still slightly asymmetric. In diameter, the left lower extremity is larger than the right. LABORATORY DATA: White count is 4.8, hemoglobin is 8.7, platelets are 209,000. Sodium 136, potassium 3, chloride 101, bicarb 26, BUN 4, and creatinine 0.47. IMPRESSION: 1. Deep venous thrombosis. 2. Anxiety, apparently is fairly severe. I have never seen her during one of these episodes but a p.o. anxiolytic would be better to use than the IV Ativan. She is not arousable in the morning after she gets the IV Ativan. 3. I am not sure she will be a candidate for any type of workup if this lung mass is persistent on a followup CT in 3 months. The mass density is not visible on plain chest radiograph done today. We will continue to follow. Job ID: [id number]
--- NOTE | 2019-03-27 10:28 | PDOC.PN ---
- Subjective Encounter Start Date: 03/27/19 Encounter Start Time: 10:27 Patient seen and examined, no new issues or complaints, feeling better, all questions answered. Son at bedside. - Objective Resuscitation Status - Order Detail: 03/25/19 19:11 Resuscitation Status Routine Resuscitation Status: DNAR: NO Resuscitation Discussed with: Patient Vital Signs & Weight: Vital Signs (12 hours) Temp Pulse Resp BP Pulse Ox 03/27/19 07:28 98.0 F 79 30 H 150/70 H 96 03/27/19 04:00 98.3 F 87 18 134/64 98 Weight Weight 94 lb 6.4 oz I&O: 03/26/19 03/27/19 03/28/19 06:59 06:59 06:59 Intake Total 480 2788 Output Total 225 600 Balance 255 2188 Result Diagrams: 03/27/19 05:10 03/27/19 05:10 Phys Exam - Physical Examination Constitutional: NAD frail HEENT: PERRLA, moist MMs, sclera anicteric Neck: no nodes, no JVD, supple Respiratory: no wheezing, no rales, no rhonchi Cardiovascular: RRR, no significant murmur, no rub Gastrointestinal: soft, non-tender, no distention, positive bowel sounds Musculoskeletal: no edema, pulses present Dx/Plan (1) DVT (deep venous thrombosis) Code(s): I82.409 - ACUTE EMBOLISM AND THOMBOS UNSP DEEP VN UNSP LOWER EXTREMITY Status: Acute (2) Lung mass Code(s): R91.8 - OTHER NONSPECIFIC ABNORMAL FINDING OF LUNG FIELD Status: Acute (3) CAD (coronary artery disease) Code(s): I25.10 - ATHSCL HEART DISEASE OF [place] CORONARY ARTERY W/O ANG PCTRS Status: Chronic Qualifiers: Coronary Disease-Associated Artery/Lesion type: [place] artery [place] vs. transplanted heart: [place] heart Associated angina: without angina Qualified Code(s): I25.10 - Atherosclerotic heart disease of [place] coronary artery without angina pectoris (4) HLD (hyperlipidemia) Code(s): E78.5 - HYPERLIPIDEMIA, UNSPECIFIED Status: Chronic Qualifiers: (5) HTN (hypertension) Code(s): I10 - ESSENTIAL (PRIMARY) HYPERTENSION Status: Chronic Qualifiers: - Plan * patient doing better * labs in AM * CM consult placed for SNF * will likely switch over to eliquis in AM * Patient requesting to have SNF arrangements closer to son's home in [place], will place CM consult * case and plan d/w patient and son Rivera at length, they understood and agreed with this plan.
[2019-03-27] MEDS: HYDROcodone/Acetaminophen 5/325 mg Tablet PO PRN ×3 (12:35→20:28)
[2019-03-27 19:51] LABS: Hemoglobin 9.2 g/dL (12.0-16.0); Platelet Count 214 thou/uL (130-400)
[2019-03-27] MEDS: rOPINIRole HCl 0.5 MG TAB PO SCH (20:26)
[2019-03-27] MEDS: Apixaban 5 MG TAB PO SCH (20:26)
[2019-03-27] MEDS: Atorvastatin Calcium 40 MG TAB PO SCH (20:27)
[2019-03-27] MEDS ORDERED: ALPRAZolam 0.5 MG TAB PO PRN (20:39)
[2019-03-28] MEDS: HYDROcodone/Acetaminophen 5/325 mg Tablet PO PRN ×2 (06:10→10:38)
[2019-03-28] MEDS: Sodium Chloride 0.9% 1,000 ML IV SCH (06:14)
[2019-03-28] MEDS: Carvedilol 6.25 MG TAB PO SCH (09:23)
[2019-03-28] MEDS: Apixaban 5 MG TAB PO SCH (09:23)
[2019-03-28] MEDS: Aspirin 81 mg Enteric Coated Tablet PO SCH (09:24)
--- NOTE | 2019-03-28 12:18 | PDOC.EVN ---
Event Note - Event Note Event Note: DC SUMMARY #[id number]
[2019-03-28 12:43] VITALS: TEMP 97.5
[2019-03-28 14:12] VITALS: BP 149/74
--- NOTE | 2019-03-29 01:15 | DIS ---
DATE OF ADMISSION: 03/25/2019 DATE OF DISCHARGE: 03/28/2019 ADMITTING DIAGNOSES: Left lower extremity deep vein thrombosis, hypertension, anemia, hyperlipidemia, spiculated mass on CT scan. DISCHARGE DIAGNOSES: Left lower extremity deep vein thrombosis, stable. Hypertension, stable. Anemia, stable. Hyperlipidemia, stable. Spiculated mass on CT scan, stable. HOSPITAL COURSE: This is a 78-year-old female admitted to the ER with left lower extremity swelling. The patient was admitted to Internal Medicine Team. Pulmonary also was following. Had a CTA of the chest done, which showed no pulmonary embolus, but did have an 11 mm nodule on the CT scan. The patient was advised to follow up with CT scan in 3 months. The patient's son, Ko, was at bedside who was also informed about this need of monitoring the mass. The patient at point in time of discharge was stable. Denied any nausea, vomiting, diarrhea, constipation, chest pain, fevers, chills, or shortness of breath. Arrangements were made to go to [facility] per the patient's family request and then a few days later to transfer over to a snf facility in the [facility] which is where the patient's son lives. The patient was given Eliquis 5 twice a day for DVT and advised to follow up with PCP for further management and care as she would need workup and monitoring of the DVT. At point in time of discharge, the patient was stable. All arrangements made. DISPOSITION: [facility] facility. FOLLOWUP: Follow up with PCP within 1 week. MEDICATIONS: See MAR. ACTIVITY: As tolerated with assistance as needed. CONDITION: Stable. PROGNOSIS: Guarded. DIET: Low-fat, low-calorie, high-fiber diet. Job ID: [id number]
== END 2019-03-28 15:39 | DRG 301 ==
LOC: ERS 11:32 → ERHOLD 18:01 → 2NO 23:05
PROVIDERS: ADMIT Internal Medicine; ATTEND Internal Medicine
DX: I82.402 Acute embolism and thrombosis of unspecified deep veins of left lower extremity (principal); Z66 Do not resuscitate; E78.5 Hyperlipidemia, unspecified; G62.9 Polyneuropathy, unspecified; F41.9 Anxiety disorder, unspecified; I10 Essential (primary) hypertension; R91.8 Other nonspecific abnormal finding of lung field; D64.9 Anemia, unspecified; I25.10 Atherosclerotic heart disease of native coronary artery without angina pectoris; J44.9 Chronic obstructive pulmonary disease, unspecified; K21.9 Gastro-esophageal reflux disease without esophagitis; F32.9 Major depressive disorder, single episode, unspecified; I25.2 Old myocardial infarction; Z90.49 Acquired absence of other specified parts of digestive tract; Z88.5 Allergy status to narcotic agent; Z79.899 Other long term (current) drug therapy; Z79.82 Long term (current) use of aspirin; Z95.5 Presence of coronary angioplasty implant and graft; Z87.891 Personal history of nicotine dependence; Z90.710 Acquired absence of both cervix and uterus
CPT/HCPCS: 36415; 71045; 71275; 80048; 80053; 85014; 85018; 85025; 85049; 85610; 85730; 93005; 96372; 99213; G0463; J1644; J1650; J2060; J3480; Q9966

== ENCOUNTER 2019-04-27 10:33 | Inpatient (IN) | payer MEDICARE, OTHER ==
[2019-04-27] MEDS ORDERED: ISOVUE-370 76%-LOCM 1 ML ONE (10:55)
--- NOTE | 2019-04-27 11:00 | RAD ---
Exam: Chest one view HISTORY:Fever Comparison: 03/27/2019 FINDINGS: Lungs: Diffuse interstitial opacification of the hyperinflated lungs Cardiac silhouette:Stable Pulmonary vessels: Central prominence, similar appearing Pleural Spaces: Clear Pneumothorax: None Osseous abnormalities: Redemonstration of methylmethacrylate at multiple levels of the imaged spine, and S-shaped spinal curvature IMPRESSION: COPD with interstitial lung disease.
[2019-04-27 11:14] LABS: #Lymphocytes 2.1 thou/uL (1.20-3.40); #Neutrophils 9.7 thou/uL (1.40-6.50); %Basophils 0.1 % (0.0-1.0); %Eosinophils 0.3 % (0.0-10.0); %Lymphocytes 16.6 % (21.0-51.0); %Monocytes 7.4 % (0.0-10.0); %Neutrophils 75.6 % (42.0-75.0); Hemoglobin 10.5 g/dL (12.0-16.0); Mean Corpuscular Hemoglobin 27.6 pg (27.0-31.0); Mean Corpuscular Volume 89.2 fL (78.0-98.0); Mean Platelet Volume 8.9 fL (7.4-10.4); Platelet Count 150 thou/uL (130-400); RBC Distribution Width 18.6 % (11.5-14.5); White Blood Cell (WBC) Count 12.8 thou/uL (4.8-10.8)
[2019-04-27] MEDS ORDERED: Piperacillin/Tazobactam 4.5 GM VIAL ONE (11:17)
[2019-04-27 11:35] LABS: ALT (SGPT) 13 U/L (8-55); AST (SGOT) 16 U/L (5-34); Albumin 3.5 g/dL (3.4-4.8); Alkaline Phosphatase 86 U/L (40-150); Anion Gap 13 mmol/L (10-20); BUN (Urea Nitrogen) 10 mg/dL (9.8-20.1); Bilirubin, Total 0.8 mg/dL (0.2-1.2); Calc. Creatinine Clearance 0 mL/min (70-130); Calcium 8.2 mg/dL (7.8-10.44); Carbon Dioxide 27 mmol/L (23-31); Chloride 102 mmol/L (98-107); Estimated GFR-MDRD 87; Globulin 2.7 g/dL (2.4-3.5); Glucose 107 mg/dL (83-110); Potassium 3.7 mmol/L (3.5-5.1); Protein, Total 6.2 g/dL (6.0-8.3); Sodium 138 mmol/L (136-145)
--- NOTE | 2019-04-27 12:53 | CT ---
CTA CHEST WITH CONTRAST, AND 3-D VOLUME RENDERING CLINICAL INDICATION: Short of breath; Elevated D-dimer Comparison exam: 03/25/2019 FINDINGS: Pulmonary embolus:No significant filling defect is identified within the pulmonary arteries. Prominen t volume of pulmonary arteries, which can be seen in the setting of pulmonary artery hypertension. Pulmonary parenchymal consolidation:Bronchial opacification of right lower lobe. Spiculated 1 cm nodu le right middle lobe is again seen. Diffuse bilateral pleural-based irregularity with subpleural opacification and pleural-based calcifications, which are seen at each posterior lung apex. Tree-in-b ud nodularity of the lungs bilaterally, most pronounced at right upper lobe. Pleural effusion: None Pneumothorax: None Osseous structures: Multifocal vertebroplasty related to chronic compression fractures. IMPRESSION: 1. No acute pulmonary embolus. 2. 1 cm spiculated right middle lobe nodule, redemonstrated. 3. Bronchial opacification, right lower lobe, indicating inspissated secretions. There is evidence of atypical pneumonia.
[2019-04-27] MEDS ORDERED: Ondansetron PF 4 MG/2 ML Vial IVP PRN (14:27)
[2019-04-27] MEDS ORDERED: Calcium Carbonate 500 MG ChewTAB PO PRN (14:27)
[2019-04-27] MEDS ORDERED: Ondansetron ODT 4 MG TAB PO PRN (14:27)
[2019-04-27] MEDS ORDERED: HYDROcodone/Acetaminophen 5/325 mg Tablet PO PRN ×2 (14:27→17:09)
[2019-04-27] MEDS ORDERED: Bisacodyl 10 MG SUPP PR PRN (14:27)
[2019-04-27] MEDS ORDERED: Acetaminophen 325 MG TAB PO PRN (14:30)
--- NOTE | 2019-04-27 14:37 | HP ---
PRIMARY CARE PHYSICIAN: Dr. Johana Reina. REASON FOR ADMISSION: Acute on chronic respiratory failure with hypoxia, sepsis, and pneumonia. HISTORY OF PRESENT ILLNESS: This is a 78-year-old female, who has underlying history of COPD, who was recently admitted in our hospital early March. At that time, she was diagnosed with DVT. She was discharged to [facility], where she stayed for about a month. She was released from [facility] on last . When she was released to home from [facility], the patient was experiencing increasing amount of cough with sputum. Her sputum was yellowish and green in nature without any hemoptysis. She was also having a fever with chills, and today, her temperature was 102. The patient was discharged from snf with home health nurse. When she visited her today, she was found tachycardic with heart rate 115 to 120, and her oxygen saturation was 82% to 87% on room air. She was also febrile with temperature 102. Her home health nurse called paramedics and brought her to emergency room. Paramedics gave her 2 DuoNeb and oxygen. And her oxygen saturation improved, and she was also given Solu-Medrol 125 mg. The patient was coughing during entire ER course with productive sputum. The patient expresses herself that she does not want to be resuscitated and she wanted to be a DNR. In the emergency room, the patient had a CT angiography, which showed a speculated lung mass and chronic interstitial changes, but without any obvious pneumonia. The patient denies any UTI symptoms. She is losing weight periodically. Her appetite is poor. She denies any constipation, diarrhea, melena, or hematochezia. She denies any flu-like illness. Her flu screen is also negative. She denies any hemoptysis. She denies any ongoing smoking. She denies any pleurisy. REVIEW OF SYSTEMS: CONSTITUTIONAL: Negative for weight loss or gain, ability to conduct usual activities. SKIN: Negative for rash, itching. EYES: Negative for double vision, pain. ENT/MOUTH: Negative for nose bleeding, neck stiffness, pain, tenderness. CARDIOVASCULAR: Negative for palpitations, dyspnea on exertion, orthopnea. RESPIRATORY: Negative for shortness of breath, wheezing, cough, hemoptysis, fever or night sweats. GASTROINTESTINAL: Negative for poor appetite, abdominal pain, heartburn, nausea, vomiting, constipation, or diarrhea. GENITOURINARY: Negative for urgency, frequency, dysuria, nocturia. MUSCULOSKELETAL: Negative for pain, swelling. NEUROLOGIC/PSYCHIATRIC: Negative for anxiety, depression. ALLERGY/IMMUNOLOGIC: Negative for skin rash, bleeding tendency. Please see my HPI for pertinent positive and negative. All other review of systems reviewed and negative except as mentioned in the HPI. PAST MEDICAL HISTORY: COPD, coronary artery disease with history of stent, hypertension, dyslipidemia, [id number] protein-calorie malnutrition, osteoporosis, frequent fall, history of ischemic cardiomyopathy, chronic pain disorder, colonic polyps, and gastroesophageal reflux disease. PAST PSYCHIATRIC HISTORY: Anxiety and depression. PAST SURGICAL HISTORY: Open reduction and internal fixation for right hip fracture; hysterectomy; cervical laminectomy; appendicectomy; cholecystectomy, L5 facetectomy and laminectomy; compression fracture repair with kyphoplasty at T11 and T12; anterior cervical diskectomy, C4 through C7; and cardiac catheterization with stent placement. FAMILY HISTORY: The patient is adopted and she cannot provide any good history about family history. SOCIAL HISTORY: The patient lives by herself alone. She was [facility] from [facility]. She does not have any tobacco, alcohol, or illicit drug abuse history. She has home health nurse. She ambulates with a walker. ALLERGIES: CODEINE. CURRENT HOME MEDICATIONS: 1. Gabapentin 300 mg twice daily. 2. Remeron 30 mg p.o. daily. 3. Plavix 75 mg p.o. daily. 4. Ropinirole 0.25 mg p.o. daily. 5. Protonix 40 mg daily. 6. Coreg 6.25 mg twice daily. 7. Fosamax 70 mg weekly. 8. Lisinopril 5 mg daily. 9. Iron one tablet daily. 10. Aspirin 81 mg p.o. daily. 11. DuoNeb therapy. EMERGENCY ROOM COURSE: The patient has received levofloxacin and Zosyn as well as IV fluid. PHYSICAL EXAMINATION: VITAL SIGNS: Currently, blood pressure 118/60, pulse 109, respiratory rate 26, temperature 102.6, and saturation 93% on 2 L oxygen. Weight 41 kg. GENERAL: The patient is currently alert, awake, tachycardic, febrile, chronically ill, malnourished. HEENT: Head, normocephalic and atraumatic. Eyes, pupils round and reactive to light. Extraocular muscles intact. ENT, oropharynx within normal limits. Moist mucous membranes. No oral lesion. No pharyngeal erythema. No exudate. NECK: Supple. No JVD. No thyromegaly. No carotid bruit. LUNGS: Bilateral scattered rales noted. Few end-expiratory wheezing heard. No accessory muscles of respiration in use. CARDIAC: S1 and S2 regular. Tachycardia. No murmur. No gallop. No rub. ABDOMEN: Soft. Bowel sounds present. Nontender. Nondistended. No organomegaly. No mass. No suprapubic tenderness. BACK: Unremarkable. No CVA tenderness. EXTREMITIES: Upper extremity, passive movement of all joints are normal. Lower extremity, no edema. Good distal pulsation. SKIN: No skin rash. HEMATOLOGICAL SYSTEM: No lymphadenopathy. PSYCHIATRIC: Normal affect. NEUROLOGIC: Grossly nonfocal examination. DIAGNOSTIC STUDIES: Significant labs; EKG showing sinus tachycardia, nonspecific ST-T changes. Chest x-ray showing COPD with interstitial changes. CT angiography, no evidence of pulmonary embolism. 1 cm spiculated right middle lobe nodule. Bronchial opacification in right lower lobe. CBC; WBC 12.8, hemoglobin 10.5, and platelets 150 with left shift. Influenza screen negative. BMP; sodium 138, potassium 3.7, chloride 102, carbon dioxide 27, anion gap 13, BUN 10, creatinine 0.66, glucose 107, and calcium 8.2. LFT; protein 6.2, albumin 3.5, alkaline phosphatase 86, AST 16, and ALT 13. Lactic acid 1.2. ASSESSMENT AND PLAN: 1. Severe sepsis. The patient had associated acute respiratory failure. Source of infection is right lower lobe pneumonia. In view of recent snf as well as hospitalization, the patient is given broad-spectrum antibiotic therapy with vancomycin and Zosyn. We will follow up on culture result. We will also rule out urinary tract infection. 2. Acute respiratory failure with hypoxia. Currently, the patient requires oxygen 2 to 3 L nasal cannula. Likely source of infection is pneumonia contributing to hypoxic respiratory failure. The patient is do not resuscitate. She does not want to be resuscitated with intubation. In case if her hypoxia gets worse, then we will try BiPAP if needed, but at this point the patient is stable with nasal cannula oxygen and we will keep her on medical floor. 3. Right lower lobe pneumonia. The patient has a bronchial opacification. She was recently hospitalized within a month as well as she had snf placement and so we will treat as if healthcare-associated pneumonia with vancomycin and Zosyn. We will give her DuoNeb therapy as well as Mucinex therapy. 4. Chronic obstructive pulmonary disease with exacerbation. We will continue the DuoNeb therapy q.4 hourly as well as Dulera 2 puffs inhalation b.i.d., Mucinex 600 mg twice daily, and we will give her Solu-Medrol 20 mg IV q.8 hourly. 5. Moderate protein-calorie malnutrition. The patient will need nutritional supplementation with Ensure t.i.d. 6. Chronic systolic heart failure with history of ischemic cardiomyopathy. We will continue Coreg and lisinopril as per home dosage. The patient is currently euvolemic. 7. Osteoporosis. The patient will continue Fosamax after discharge. While in the hospital, we will continue the calcium with vitamin D. 8. Chronic low back pain. We will continue gabapentin 300 mg twice daily. 9. Anxiety and depression. We will continue Remeron 30 mg p.o. at bedtime. 10. Spiculated pulmonary lesion. The patient does not want any kind of further investigation to be done and she wants to be a do not resuscitate. She is not interested in getting specific treatment for it, even if it is lung cancer. 11. Anemia, normocytic normochromic. We will start folic acid, vitamin B12 therapy, and multivitamin therapy. 12. Deep venous thrombosis prophylaxis, Lovenox 30 mg subcu daily. Gastrointestinal prophylaxis, Protonix 40 mg p.o. daily. CODE STATUS: The patient is a DNR. The patient does not have any surrogate decision maker, this was confirmed with the patient. DISPOSITION PLAN: Based on clinical course, we are expecting the patient's stay in hospital more than 2 midnights. Plan of care discussed with the patient in detail. Job ID: [id number]
[2019-04-27] MEDS ORDERED: Loperamide HCl 2 MG CAP PO PRN (14:45)
[2019-04-27 14:46] VITALS: BMI 16.8
[2019-04-27] MEDS ORDERED: Piperacillin/Tazobactam 3.375 GM in Sodium Chloride 0.9% 100 ML IVPB SCH (15:00)
[2019-04-27] MEDS ORDERED: Vancomycin HCl 1 GM in Premix Bag 1 BAG IVPB SCH (15:00)
[2019-04-27] MEDS: Sodium Chloride 0.9% 1,000 ML IV SCH (15:31)
[2019-04-27] MEDS: methylPREDNISolone Sod Succ 40 MG VIAL IVP SCH ×2 (15:34→21:18)
[2019-04-27] MEDS: Carvedilol 6.25 MG TAB PO SCH (16:51)
[2019-04-27] MEDS: Piperacillin/Tazobactam 3.375 GM in Sodium Chloride 0.9% 100 ML IVPB SCH ×2 (16:51→23:05)
[2019-04-27 17:15] LABS: Bilirubin Negative (Negative); Blood, Urine Trace (Negative); Clarity CLEAR (Clear); Glucose, Urine (Dipstick) 250 mg/dL (Negative); Leukocyte Negative (Negative); Nitrite Negative (Negative); Protein, Urine (Dipstick) Trace mg/dL (Neg-Trace); Urobilinogen 0.2 mg/dL (0.2-1.0); pH, Urine 6.5 (5.0-9.0)
[2019-04-27 17:16] LABS: Bacteria/HPF None Seen HPF (None Seen); Hyaline Casts/LPF 0-3 HYALINE CAST LPF (0-3 Hyaline); RBC/HPF 0-3 HPF (0-3); Squamous Epithelial None Seen HPF (0-3); WBC/HPF None Seen HPF (0-3)
[2019-04-27] MEDS: Mometasone/Formoterol 120 PUFF INHALER INH SCH (18:52)
[2019-04-27] MEDS: Mirtazapine 30 MG TAB PO SCH (20:20)
[2019-04-27] MEDS: rOPINIRole HCl 0.5 MG TAB PO SCH (20:20)
[2019-04-27] MEDS: Famotidine 20 MG TAB PO SCH (20:20)
[2019-04-27] MEDS: Apixaban 5 MG TAB PO SCH (20:21)
[2019-04-27] MEDS: Gabapentin 300 MG CAP PO SCH (20:21)
[2019-04-27] MEDS: guaiFENesin ER 600 MG TAB PO SCH (20:21)
[2019-04-27] MEDS ORDERED: Senokot S 8.6-50 MG TAB PO PRN (21:00)
[2019-04-28] MEDS: methylPREDNISolone Sod Succ 40 MG VIAL IVP SCH ×3 (05:39→21:28)
[2019-04-28] MEDS: Piperacillin/Tazobactam 3.375 GM in Sodium Chloride 0.9% 100 ML IVPB SCH ×4 (05:39→23:16)
[2019-04-28] MEDS: Mometasone/Formoterol 120 PUFF INHALER INH SCH ×2 (07:09→18:38)
[2019-04-28 07:48] LABS: #Lymphocytes 0.8 thou/uL (1.20-3.40); #Monocytes 0.3 thou/uL (0.11-0.59); #Neutrophils 6.4 thou/uL (1.40-6.50); %Eosinophils 0.1 % (0.0-10.0); %Lymphocytes 10.3 % (21.0-51.0); %Monocytes 3.7 % (0.0-10.0); %Neutrophils 85.8 % (42.0-75.0); Hemoglobin 9.7 g/dL (12.0-16.0); Mean Corpuscular Hemoglobin 27.9 pg (27.0-31.0); Mean Platelet Volume 9.3 fL (7.4-10.4); Platelet Count 127 thou/uL (130-400); RBC Distribution Width 18.5 % (11.5-14.5); Red Blood Cell (RBC) Count 3.49 mill/uL (4.20-5.40); White Blood Cell (WBC) Count 7.5 thou/uL (4.8-10.8)
[2019-04-28 08:28] LABS: Anion Gap 11 mmol/L (10-20); BUN (Urea Nitrogen) 12 mg/dL (9.8-20.1); Calc. Creatinine Clearance 48 mL/min (70-130); Calcium 8.9 mg/dL (7.8-10.44); Carbon Dioxide 27 mmol/L (23-31); Chloride 107 mmol/L (98-107); Estimated GFR-MDRD Greater than 90; Glucose 147 mg/dL (83-110); Potassium 3.7 mmol/L (3.5-5.1); Sodium 141 mmol/L (136-145)
[2019-04-28] MEDS: Apixaban 5 MG TAB PO SCH ×2 (08:52→20:17)
[2019-04-28] MEDS: Lisinopril 2.5 MG TAB PO SCH (08:52)
[2019-04-28] MEDS: Folic Acid 1 MG TAB PO SCH (08:52)
[2019-04-28] MEDS: Multivitamin W/ Minerals 1 TAB PO SCH (08:53)
[2019-04-28] MEDS: Famotidine 20 MG TAB PO SCH ×2 (08:53→20:17)
[2019-04-28] MEDS: Ferrous Sulfate 325 MG TAB PO SCH (08:53)
[2019-04-28] MEDS: Cyanocobalamin (Vitamin B-12) 1,000 MCG TAB PO SCH (08:53)
[2019-04-28] MEDS: Aspirin 81 mg Enteric Coated Tablet PO SCH (08:53)
[2019-04-28] MEDS: Carvedilol 6.25 MG TAB PO SCH ×2 (08:54→16:27)
[2019-04-28] MEDS: Atorvastatin Calcium 40 MG TAB PO SCH (08:54)
[2019-04-28] MEDS: Gabapentin 300 MG CAP PO SCH ×2 (08:54→20:16)
[2019-04-28] MEDS: guaiFENesin ER 600 MG TAB PO SCH ×2 (08:54→20:16)
[2019-04-28] MEDS: Sodium Chloride 0.9% 1,000 ML IV SCH (08:59)
--- NOTE | 2019-04-28 10:58 | PDOC.PN ---
- Subjective Encounter Start Date: 04/28/19 Encounter Start Time: 09:00 -: old records requested/rev today pt feels better, less cough, no chest pain, less dyspnea - Objective Resuscitation Status - Order Detail: 04/27/19 13:45 Resuscitation Status Routine Resuscitation Status: DNAR: NO Resuscitation Discussed with: discussed with pt MAR Reviewed: Yes Vital Signs & Weight: Vital Signs (12 hours) Temp Pulse Resp BP BP Pulse Ox 04/28/19 08:54 129/62 04/28/19 08:52 80 129/62 04/28/19 08:00 98.0 F 103 H 20 129/62 98 04/28/19 07:09 80 16 98 04/28/19 02:51 74 16 97 Weight Weight 91 lb 14.924 oz I&O: 04/27/19 04/28/19 04/29/19 06:59 06:59 06:59 Intake Total 2125 Balance 2125 Result Diagrams: 04/28/19 07:32 04/28/19 07:32 Phys Exam - Physical Examination Constitutional: NAD HEENT: PERRLA, moist MMs, sclera anicteric Neck: no JVD, supple Respiratory: no wheezing, no rhonchi bilateral scattered rales+ Cardiovascular: RRR, no significant murmur, no rub Gastrointestinal: soft, non-tender, no distention, positive bowel sounds Musculoskeletal: no edema, pulses present Neurological: non-focal, normal sensation, moves all 4 limbs Lymphatic: no nodes Psychiatric: normal affect, A&O x 3 Skin: no rash, normal turgor Dx/Plan (1) Acute respiratory failure with hypoxia Code(s): J96.01 - ACUTE RESPIRATORY FAILURE WITH HYPOXIA Status: Acute (2) Severe sepsis Code(s): A41.9 - SEPSIS, UNSPECIFIED ORGANISM; R65.20 - SEVERE SEPSIS WITHOUT SEPTIC SHOCK Status: Acute (3) Healthcare associated bacterial pneumonia Code(s): J15.9 - UNSPECIFIED BACTERIAL PNEUMONIA Status: Acute (4) COPD exacerbation Code(s): J44.1 - CHRONIC OBSTRUCTIVE PULMONARY DISEASE W (ACUTE) EXACERBATION Status: Acute (5) H/O deep venous thrombosis Code(s): Z86.718 - PERSONAL HISTORY OF OTHER VENOUS THROMBOSIS AND EMBOLISM Status: Chronic (6) Lung nodule, solitary Code(s): R91.1 - SOLITARY PULMONARY NODULE Status: Chronic (7) Ischemic cardiomyopathy Code(s): I25.5 - ISCHEMIC CARDIOMYOPATHY Status: Chronic Comment: (8) Physical deconditioning Code(s): R53.81 - OTHER MALAISE Status: Chronic (9) Anxiety and depression Code(s): F41.8 - OTHER SPECIFIED ANXIETY DISORDERS Status: Chronic (10) CAD (coronary artery disease) Code(s): I25.10 - ATHSCL HEART DISEASE OF [place] CORONARY ARTERY W/O ANG PCTRS Status: Chronic Qualifiers: (11) GERD (gastroesophageal reflux disease) Code(s): K21.9 - GASTRO-ESOPHAGEAL REFLUX DISEASE WITHOUT ESOPHAGITIS Status: Chronic Qualifiers: (12) HLD (hyperlipidemia) Code(s): E78.5 - HYPERLIPIDEMIA, UNSPECIFIED Status: Chronic Qualifiers: (13) HTN (hypertension) Code(s): I10 - ESSENTIAL (PRIMARY) HYPERTENSION Status: Chronic Qualifiers: (14) Macrocytic anemia Code(s): D53.9 - NUTRITIONAL ANEMIA, UNSPECIFIED Status: Chronic (15) Protein-calorie malnutrition, moderate Code(s): E44.0 - MODERATE PROTEIN-CALORIE MALNUTRITION Status: Chronic - Plan cont current plan of care, continue antibiotics, PT/OT, respiratory therapy * continue vancomycin and zosyn * monitor platelet count * continue elliquis and other home meds * continue duoneb, dulera and solumderol * nutritional support * medication reviewed as below * symptomatic treatment * continue PT/OT * she will need follow up with pulmonary for lung nodule. * follow on culture result Review of Systems - Review of Systems Constitutional: weakness. negative: fever, chills, sweats, malaise, other Respiratory: Cough, Shortness of Breath, SOB with Excertion, Sputum. negative: Dry, Hemoptysis, Pleuritic Pain, Wheezing Cardiovascular: negative: chest pain, palpitations, orthopnea, paroxysmal nocturnal dyspnea, edema, light headedness, other Gastrointestinal: negative: Nausea, Vomiting, Abdominal Pain, Diarrhea, Constipation, Melena, Hematochezia, Other Genitourinary: negative: Dysuria, Frequency, Incontinence, Hematuria, Retention , Other Musculoskeletal: negative: Neck Pain, Shoulder Pain, Arm Pain, Back Pain, Hand Pain, Leg Pain, Foot Pain, Other Skin: negative: Rash, Lesions, Ray, Bruising, Other - Medications/Allergies Allergies/Adverse Reactions: Allergies Allergy/AdvReac Type Severity Reaction Status Date / Time No Known Allergies Allergy Verified 04/27/19 16:50 Medications: Current Medications Acetaminophen (Tylenol) 650 mg PO Q4H PRN PRN Reason: Headache/Fever/Mild Pain (1-3) Hydrocodone Bitart/Acetaminophen ([place] 5/325) 1 tab PO Q4H PRN PRN Reason: Moderate Pain (4-6) Albuterol/Ipratropium (Duoneb) 3 ml NEB [id number] [facility] Last Admin: 04/28/19 07:09 Dose: 3 ml Apixaban (Eliquis) 5 mg PO BID [facility] Last Admin: 04/28/19 08:52 Dose: 5 mg Aspirin (Ecotrin) 81 mg PO DAILY [facility] Last Admin: 04/28/19 08:53 Dose: 81 mg Atorvastatin Calcium (Lipitor) 40 mg PO DAILY [facility] Last Admin: 04/28/19 08:54 Dose: 40 mg Bisacodyl (Dulcolax) 10 mg [place] DAILYPRN PRN PRN Reason: Constipation Calcium Carbonate (Tums) 1,000 mg PO Q4H PRN PRN Reason: Heartburn or Indigestion Carvedilol (Coreg) 6.25 mg PO BID-[facility] Last Admin: 04/28/19 08:54 Dose: 6.25 mg Cyanocobalamin (Vitamin B-12) 1,000 mcg PO DAILY [facility] Last Admin: 04/28/19 08:53 Dose: 1,000 mcg Famotidine (Pepcid) 20 mg PO BID [facility] Last Admin: 04/28/19 08:53 Dose: 20 mg Ferrous Sulfate (Feosol) 325 mg PO DAILY [facility] Last Admin: 04/28/19 08:53 Dose: 325 mg Folic Acid (Folvite) 1 mg PO DAILY [facility] Last Admin: 04/28/19 08:52 Dose: 1 mg Gabapentin (Neurontin) 300 mg PO BID [facility] Last Admin: 04/28/19 08:54 Dose: 300 mg Guaifenesin (Mucinex) 600 mg PO Q12HR [facility] Last Admin: 04/28/19 08:54 Dose: 600 mg Sodium Chloride (Normal Saline 0.9%) 1,000 mls @ 50 mls/hr IV .Q20H [facility] Last Admin: 04/28/19 08:59 Dose: 1,000 mls Vancomycin HCl 750 mg/ Sodium (Chloride) 250 mls @ 250 mls/hr IVPB Q24HR [facility] Piperacillin Sod/Tazobactam (Sod 3.375 gm/ Sodium Chloride) 100 mls @ 200 mls/ hr IVPB 0530,1130,1730,2330 [facility] Last Admin: 04/28/19 05:39 Dose: 100 mls Iron/Minerals/Multivitamins (Theragran M) 1 tab PO DAILY [facility] Last Admin: 04/28/19 08:53 Dose: 1 tab Lisinopril (Zestril) 5 mg PO DAILY [facility] Last Admin: 04/28/19 08:52 Dose: 5 mg Loperamide HCl (Imodium) 2 mg PO PRN PRN PRN Reason: Diarrhea/Loose Stools Methylprednisolone Sodium Succinate (Solu-Medrol) 20 mg IVP Q8HR [facility] Last Admin: 04/28/19 05:39 Dose: 20 mg Mirtazapine (Remeron) 45 mg PO HS [facility] Last Admin: 04/27/19 20:20 Dose: 45 mg Miscellaneous Medication (Pharmacy To Dose) 1 each IVPB PRN PRN PRN Reason: Pharmacy to dose Mometasone Furoate/Formoterol Fumar (Dulera 200 Mcg/5 Mcg Inhaler) 2 puff INH BID-RT [facility] Last Admin: 04/28/19 07:09 Dose: 2 puff Ondansetron HCl (Zofran Odt) 4 mg PO Q6H PRN PRN Reason: Nausea/Vomiting Ondansetron HCl (Zofran) 4 mg IVP Q6H PRN PRN Reason: Nausea/Vomiting Pantoprazole Sodium (Protonix) 40 mg PO DAILY [facility] Last Admin: 04/28/19 08:54 Dose: 40 mg Ropinirole HCl (Requip) 0.5 mg PO HS [facility] Last Admin: 04/27/19 20:20 Dose: 0.5 mg Senna/Docusate Sodium (Senokot S) 2 tab PO BID PRN PRN Reason: Constipation Zolpidem Tartrate (Ambien) 5 mg PO HSPRN PRN PRN Reason: Insomnia
[2019-04-28] MEDS: Vancomycin HCl 750 MG in Sodium Chloride 0.9% 250 ML 250 ML IVPB SCH (15:36)
[2019-04-28] MEDS: Zolpidem Tartrate 5 MG TAB PO PRN (20:16)
[2019-04-28] MEDS: Mirtazapine 30 MG TAB PO SCH (20:16)
[2019-04-28] MEDS: rOPINIRole HCl 0.5 MG TAB PO SCH (20:17)
[2019-04-29] MEDS: methylPREDNISolone Sod Succ 40 MG VIAL IVP SCH ×3 (05:14→21:47)
[2019-04-29] MEDS: Piperacillin/Tazobactam 3.375 GM in Sodium Chloride 0.9% 100 ML IVPB SCH ×4 (05:15→23:30)
[2019-04-29] MEDS: Sodium Chloride 0.9% 1,000 ML IV SCH ×2 (05:20→21:55)
[2019-04-29] MEDS: Mometasone/Formoterol 120 PUFF INHALER INH SCH ×2 (06:41→19:10)
[2019-04-29] MEDS: Lisinopril 2.5 MG TAB PO SCH (08:37)
[2019-04-29] MEDS: Apixaban 5 MG TAB PO SCH ×2 (08:38→21:47)
[2019-04-29] MEDS: Atorvastatin Calcium 40 MG TAB PO SCH (08:38)
[2019-04-29] MEDS: Cyanocobalamin (Vitamin B-12) 1,000 MCG TAB PO SCH (08:38)
[2019-04-29] MEDS: Ferrous Sulfate 325 MG TAB PO SCH (08:38)
[2019-04-29] MEDS: Famotidine 20 MG TAB PO SCH ×2 (08:38→21:47)
[2019-04-29] MEDS: Aspirin 81 mg Enteric Coated Tablet PO SCH (08:38)
[2019-04-29] MEDS: Gabapentin 300 MG CAP PO SCH ×2 (08:38→21:46)
[2019-04-29] MEDS: Multivitamin W/ Minerals 1 TAB PO SCH (08:38)
[2019-04-29] MEDS: Folic Acid 1 MG TAB PO SCH (08:39)
[2019-04-29] MEDS: Carvedilol 6.25 MG TAB PO SCH ×2 (08:39→17:20)
[2019-04-29] MEDS: guaiFENesin ER 600 MG TAB PO SCH ×2 (08:39→21:46)
--- NOTE | 2019-04-29 11:04 | PDOC.PN ---
- Subjective Encounter Start Date: 04/29/19 Encounter Start Time: 09:15 pt has cough, wheezing but overall feels better - Objective Resuscitation Status - Order Detail: 04/27/19 13:45 Resuscitation Status Routine Resuscitation Status: DNAR: NO Resuscitation Discussed with: discussed with pt MAR Reviewed: Yes Vital Signs & Weight: Vital Signs (12 hours) Temp Pulse Resp BP BP Pulse Ox 04/29/19 10:16 79 16 98 04/29/19 08:39 170/78 H 04/29/19 08:38 98 04/29/19 08:37 79 170/78 H 04/29/19 08:00 98.1 F 79 16 170/78 H 98 04/29/19 06:44 72 16 100 04/29/19 06:41 72 16 100 04/29/19 02:11 12 Weight Weight 91 lb 14.924 oz I&O: 04/28/19 04/29/19 04/30/19 06:59 06:59 06:59 Intake Total 5 2539 Balance 5 2539 Result Diagrams: 04/28/19 07:32 04/28/19 07:32 Phys Exam - Physical Examination Constitutional: NAD HEENT: PERRLA, moist MMs, sclera anicteric Neck: no JVD, supple Respiratory: wheezing present few scattered rales Cardiovascular: RRR, no significant murmur, no rub Gastrointestinal: soft, non-tender, no distention, positive bowel sounds Musculoskeletal: no edema, pulses present Neurological: non-focal, normal sensation Lymphatic: no nodes Psychiatric: normal affect, A&O x 3 Skin: no rash, normal turgor Dx/Plan (1) Acute respiratory failure with hypoxia Code(s): J96.01 - ACUTE RESPIRATORY FAILURE WITH HYPOXIA Status: Acute (2) Severe sepsis Code(s): A41.9 - SEPSIS, UNSPECIFIED ORGANISM; R65.20 - SEVERE SEPSIS WITHOUT SEPTIC SHOCK Status: Acute (3) Healthcare associated bacterial pneumonia Code(s): J15.9 - UNSPECIFIED BACTERIAL PNEUMONIA Status: Acute (4) COPD exacerbation Code(s): J44.1 - CHRONIC OBSTRUCTIVE PULMONARY DISEASE W (ACUTE) EXACERBATION Status: Acute (5) H/O deep venous thrombosis Code(s): Z86.718 - PERSONAL HISTORY OF OTHER VENOUS THROMBOSIS AND EMBOLISM Status: Chronic (6) Lung nodule, solitary Code(s): R91.1 - SOLITARY PULMONARY NODULE Status: Chronic (7) Ischemic cardiomyopathy Code(s): I25.5 - ISCHEMIC CARDIOMYOPATHY Status: Chronic Comment: (8) Physical deconditioning Code(s): R53.81 - OTHER MALAISE Status: Chronic (9) Anxiety and depression Code(s): F41.8 - OTHER SPECIFIED ANXIETY DISORDERS Status: Chronic (10) CAD (coronary artery disease) Code(s): I25.10 - ATHSCL HEART DISEASE OF [place] CORONARY ARTERY W/O ANG PCTRS Status: Chronic Qualifiers: (11) GERD (gastroesophageal reflux disease) Code(s): K21.9 - GASTRO-ESOPHAGEAL REFLUX DISEASE WITHOUT ESOPHAGITIS Status: Chronic Qualifiers: (12) HLD (hyperlipidemia) Code(s): E78.5 - HYPERLIPIDEMIA, UNSPECIFIED Status: Chronic Qualifiers: (13) HTN (hypertension) Code(s): I10 - ESSENTIAL (PRIMARY) HYPERTENSION Status: Chronic Qualifiers: (14) Macrocytic anemia Code(s): D53.9 - NUTRITIONAL ANEMIA, UNSPECIFIED Status: Chronic (15) Protein-calorie malnutrition, moderate Code(s): E44.0 - MODERATE PROTEIN-CALORIE MALNUTRITION Status: Chronic - Plan cont current plan of care, continue antibiotics, respiratory therapy * continue vancomycin and zosyn * regarding pulmonary nodule, she has appointment with pulmonary, will try to see if pulmonary can see her in hospital * medication reviewed as below * symptomatic treatment * continue current optimum therapy for copd * nutritional support. Review of Systems - Review of Systems Constitutional: weakness. negative: fever, chills, sweats, malaise, other Respiratory: Cough, Shortness of Breath, SOB with Excertion, Sputum, Wheezing. negative: Dry, Hemoptysis, Pleuritic Pain Cardiovascular: negative: chest pain, palpitations, orthopnea, paroxysmal nocturnal dyspnea, edema, light headedness, other Gastrointestinal: negative: Nausea, Vomiting, Abdominal Pain, Diarrhea, Constipation, Melena, Hematochezia, Other Genitourinary: negative: Dysuria, Frequency, Incontinence, Hematuria, Retention , Other Musculoskeletal: negative: Neck Pain, Shoulder Pain, Arm Pain, Back Pain, Hand Pain, Leg Pain, Foot Pain, Other - Medications/Allergies Allergies/Adverse Reactions: Allergies Allergy/AdvReac Type Severity Reaction Status Date / Time No Known Allergies Allergy Verified 04/27/19 16:50 Medications: Current Medications Acetaminophen (Tylenol) 650 mg PO Q4H PRN PRN Reason: Headache/Fever/Mild Pain (1-3) Last Admin: 04/28/19 18:05 Dose: 650 mg Hydrocodone Bitart/Acetaminophen ([place] 5/325) 1 tab PO Q4H PRN PRN Reason: Moderate Pain (4-6) Albuterol/Ipratropium (Duoneb) 3 ml NEB [id number] [facility] Last Admin: 04/29/19 10:16 Dose: 3 ml Apixaban (Eliquis) 5 mg PO BID [facility] Last Admin: 04/29/19 08:38 Dose: 5 mg Aspirin (Ecotrin) 81 mg PO DAILY [facility] Last Admin: 04/29/19 08:38 Dose: 81 mg Atorvastatin Calcium (Lipitor) 40 mg PO DAILY [facility] Last Admin: 04/29/19 08:38 Dose: 40 mg Bisacodyl (Dulcolax) 10 mg [place] DAILYPRN PRN PRN Reason: Constipation Calcium Carbonate (Tums) 1,000 mg PO Q4H PRN PRN Reason: Heartburn or Indigestion Carvedilol (Coreg) 6.25 mg PO BID-[facility] Last Admin: 04/29/19 08:39 Dose: 6.25 mg Cyanocobalamin (Vitamin B-12) 1,000 mcg PO DAILY [facility] Last Admin: 04/29/19 08:38 Dose: 1,000 mcg Famotidine (Pepcid) 20 mg PO BID [facility] Last Admin: 04/29/19 08:38 Dose: 20 mg Ferrous Sulfate (Feosol) 325 mg PO DAILY [facility] Last Admin: 04/29/19 08:38 Dose: 325 mg Folic Acid (Folvite) 1 mg PO DAILY [facility] Last Admin: 04/29/19 08:39 Dose: 1 mg Gabapentin (Neurontin) 300 mg PO BID [facility] Last Admin: 04/29/19 08:38 Dose: 300 mg Guaifenesin (Mucinex) 600 mg PO Q12HR [facility] Last Admin: 04/29/19 08:39 Dose: 600 mg Sodium Chloride (Normal Saline 0.9%) 1,000 mls @ 50 mls/hr IV .Q20H [facility] Last Admin: 04/29/19 05:20 Dose: Not Given Vancomycin HCl 750 mg/ Sodium (Chloride) 250 mls @ 250 mls/hr IVPB Q24HR [facility] Last Admin: 04/28/19 15:36 Dose: 250 mls Piperacillin Sod/Tazobactam (Sod 3.375 gm/ Sodium Chloride) 100 mls @ 200 mls/ hr IVPB 0530,1130,1730,2330 [facility] Last Admin: 04/29/19 05:15 Dose: 100 mls Iron/Minerals/Multivitamins (Theragran M) 1 tab PO DAILY [facility] Last Admin: 04/29/19 08:38 Dose: 1 tab Lisinopril (Zestril) 5 mg PO DAILY [facility] Last Admin: 04/29/19 08:37 Dose: 5 mg Loperamide HCl (Imodium) 2 mg PO PRN PRN PRN Reason: Diarrhea/Loose Stools Methylprednisolone Sodium Succinate (Solu-Medrol) 20 mg IVP Q8HR [facility] Last Admin: 04/29/19 05:14 Dose: 20 mg Mirtazapine (Remeron) 45 mg PO HS [facility] Last Admin: 04/28/19 20:16 Dose: 45 mg Miscellaneous Medication (Pharmacy To Dose) 1 each IVPB PRN PRN PRN Reason: Pharmacy to dose Mometasone Furoate/Formoterol Fumar (Dulera 200 Mcg/5 Mcg Inhaler) 2 puff INH BID-RT [facility] Last Admin: 04/29/19 06:41 Dose: 2 puff Ondansetron HCl (Zofran Odt) 4 mg PO Q6H PRN PRN Reason: Nausea/Vomiting Ondansetron HCl (Zofran) 4 mg IVP Q6H PRN PRN Reason: Nausea/Vomiting Pantoprazole Sodium (Protonix) 40 mg PO DAILY [facility] Last Admin: 04/29/19 08:38 Dose: Not Given Ropinirole HCl (Requip) 0.5 mg PO HS [facility] Last Admin: 04/28/19 20:17 Dose: 0.5 mg Senna/Docusate Sodium (Senokot S) 2 tab PO BID PRN PRN Reason: Constipation Zolpidem Tartrate (Ambien) 5 mg PO HSPRN PRN PRN Reason: Insomnia Last Admin: 04/28/19 20:16 Dose: 5 mg
[2019-04-29] MEDS: Vancomycin HCl 750 MG in Sodium Chloride 0.9% 250 ML 250 ML IVPB SCH (14:33)
[2019-04-29] MEDS: Zolpidem Tartrate 5 MG TAB PO PRN (21:46)
[2019-04-29] MEDS: rOPINIRole HCl 0.5 MG TAB PO SCH (21:47)
[2019-04-29] MEDS: Mirtazapine 30 MG TAB PO SCH (21:47)
[2019-04-30] MEDS: Sodium Chloride 0.9% 1,000 ML IV SCH (00:23)
[2019-04-30] MEDS: methylPREDNISolone Sod Succ 40 MG VIAL IVP SCH (05:25)
[2019-04-30] MEDS: Piperacillin/Tazobactam 3.375 GM in Sodium Chloride 0.9% 100 ML IVPB SCH ×2 (05:26→11:22)
[2019-04-30] MEDS: Mometasone/Formoterol 120 PUFF INHALER INH SCH (06:15)
[2019-04-30] MEDS: Famotidine 20 MG TAB PO SCH (08:09)
[2019-04-30] MEDS: Ferrous Sulfate 325 MG TAB PO SCH (08:09)
[2019-04-30] MEDS: Gabapentin 300 MG CAP PO SCH (08:09)
[2019-04-30] MEDS: Folic Acid 1 MG TAB PO SCH (08:09)
[2019-04-30] MEDS: Aspirin 81 mg Enteric Coated Tablet PO SCH (08:09)
[2019-04-30] MEDS: Multivitamin W/ Minerals 1 TAB PO SCH (08:09)
[2019-04-30] MEDS: Apixaban 5 MG TAB PO SCH (08:09)
[2019-04-30] MEDS: Lisinopril 2.5 MG TAB PO SCH (08:09)
[2019-04-30] MEDS: Cyanocobalamin (Vitamin B-12) 1,000 MCG TAB PO SCH (08:09)
[2019-04-30] MEDS: Carvedilol 6.25 MG TAB PO SCH (08:10)
[2019-04-30] MEDS: Atorvastatin Calcium 40 MG TAB PO SCH (08:10)
[2019-04-30] MEDS: guaiFENesin ER 600 MG TAB PO SCH (08:10)
--- NOTE | 2019-04-30 11:30 | PDOC.PN ---
- Subjective Encounter Start Date: 04/30/19 Encounter Start Time: 09:20 Patient seen and examined. No new complaints. No overnight events - Objective Resuscitation Status - Order Detail: 04/27/19 13:45 Resuscitation Status Routine Resuscitation Status: DNAR: NO Resuscitation Discussed with: discussed with pt MAR Reviewed: Yes Vital Signs & Weight: Vital Signs (12 hours) Temp Pulse Resp BP BP Pulse Ox 04/30/19 11:25 98 F 80 20 168/82 H 95 04/30/19 10:17 87 16 96 04/30/19 08:10 98.3 F 87 24 H 152/61 H 152/61 H 95 04/30/19 08:09 87 152/61 H 04/30/19 08:07 96 04/30/19 06:17 75 18 98 04/30/19 06:15 75 16 98 04/30/19 02:30 16 Weight Admit Weight 91 lb 14.924 oz Weight 91 lb 14.924 oz I&O: 04/29/19 04/30/19 05/01/19 06:59 06:59 06:59 Intake Total 2539 2645 Balance 2539 2645 Result Diagrams: 04/28/19 07:32 04/28/19 07:32 Phys Exam - Physical Examination Constitutional: NAD HEENT: PERRLA, moist MMs, sclera anicteric Neck: no JVD, supple Respiratory: no wheezing, no rales, no rhonchi Cardiovascular: RRR, no significant murmur, no rub Gastrointestinal: soft, non-tender, no distention, positive bowel sounds Musculoskeletal: no edema, pulses present Neurological: non-focal, normal sensation, moves all 4 limbs Lymphatic: no nodes Psychiatric: normal affect, A&O x 3 Skin: no rash, normal turgor Dx/Plan (1) Acute respiratory failure with hypoxia Code(s): J96.01 - ACUTE RESPIRATORY FAILURE WITH HYPOXIA Status: Acute (2) Severe sepsis Code(s): A41.9 - SEPSIS, UNSPECIFIED ORGANISM; R65.20 - SEVERE SEPSIS WITHOUT SEPTIC SHOCK Status: Acute (3) Healthcare associated bacterial pneumonia Code(s): J15.9 - UNSPECIFIED BACTERIAL PNEUMONIA Status: Acute (4) COPD exacerbation Code(s): J44.1 - CHRONIC OBSTRUCTIVE PULMONARY DISEASE W (ACUTE) EXACERBATION Status: Acute (5) H/O deep venous thrombosis Code(s): Z86.718 - PERSONAL HISTORY OF OTHER VENOUS THROMBOSIS AND EMBOLISM Status: Chronic (6) Lung nodule, solitary Code(s): R91.1 - SOLITARY PULMONARY NODULE Status: Chronic (7) Ischemic cardiomyopathy Code(s): I25.5 - ISCHEMIC CARDIOMYOPATHY Status: Chronic Comment: (8) Physical deconditioning Code(s): R53.81 - OTHER [place]ISE Status: Chronic (9) Anxiety and depression Code(s): F41.8 - OTHER SPECIFIED ANXIETY DISORDERS Status: Chronic (10) CAD (coronary artery disease) Code(s): I25.10 - ATHSCL HEART DISEASE OF [place] CORONARY ARTERY W/O ANG PCTRS Status: Chronic Qualifiers: (11) GERD (gastroesophageal reflux disease) Code(s): K21.9 - GASTRO-ESOPHAGEAL REFLUX DISEASE WITHOUT ESOPHAGITIS Status: Chronic Qualifiers: (12) HLD (hyperlipidemia) Code(s): E78.5 - HYPERLIPIDEMIA, UNSPECIFIED Status: Chronic Qualifiers: (13) HTN (hypertension) Code(s): I10 - ESSENTIAL (PRIMARY) HYPERTENSION Status: Chronic Qualifiers: (14) Macrocytic anemia Code(s): D53.9 - NUTRITIONAL ANEMIA, UNSPECIFIED Status: Chronic (15) Protein-calorie malnutrition, moderate Code(s): E44.0 - MODERATE PROTEIN-CALORIE MALNUTRITION Status: Chronic - Plan cont current plan of care, continue antibiotics, respiratory therapy * Medication reviewed as below * symptomatic treatment * see discharge rusty. Review of Systems - Review of Systems ENT: negative: Ear Pain, Ear Discharge, Nose Pain, Nose Discharge, Nose Congestion, Mouth Pain, Mouth Swelling, Throat Pain, Throat Swelling, Other Respiratory: negative: Cough, Dry, Shortness of Breath, Hemoptysis, SOB with Excertion, Pleuritic Pain, Sputum, Wheezing Cardiovascular: negative: chest pain, palpitations, orthopnea, paroxysmal nocturnal dyspnea, edema, light headedness, other Gastrointestinal: negative: Nausea, Vomiting, Abdominal Pain, Diarrhea, Constipation, Melena, Hematochezia, Other Genitourinary: negative: Dysuria, Frequency, Incontinence, Hematuria, Retention , Other Musculoskeletal: negative: Neck Pain, Shoulder Pain, Arm Pain, Back Pain, Hand Pain, Leg Pain, Foot Pain, Other Skin: negative: Rash, Lesions, Ray, Bruising, Other - Medications/Allergies Allergies/Adverse Reactions: Allergies Allergy/AdvReac Type Severity Reaction Status Date / Time No Known Allergies Allergy Verified 04/27/19 16:50 Medications: Current Medications Acetaminophen (Tylenol) 650 mg PO Q4H PRN PRN Reason: Headache/Fever/Mild Pain (1-3) Last Admin: 04/28/19 18:05 Dose: 650 mg Hydrocodone Bitart/Acetaminophen ([place] 5/325) 1 tab PO Q4H PRN PRN Reason: Moderate Pain (4-6) Albuterol/Ipratropium (Duoneb) 3 ml NEB [id number] [facility] Last Admin: 04/30/19 10:17 Dose: 3 ml Apixaban (Eliquis) 5 mg PO BID [facility] Last Admin: 04/30/19 08:09 Dose: 5 mg Aspirin (Ecotrin) 81 mg PO DAILY [facility] Last Admin: 04/30/19 08:09 Dose: 81 mg Atorvastatin Calcium (Lipitor) 40 mg PO DAILY [facility] Last Admin: 04/30/19 08:10 Dose: 40 mg Bisacodyl (Dulcolax) 10 mg [place] DAILYPRN PRN PRN Reason: Constipation Calcium Carbonate (Tums) 1,000 mg PO Q4H PRN PRN Reason: Heartburn or Indigestion Carvedilol (Coreg) 6.25 mg PO BID[facility] Last Admin: 04/30/19 08:10 Dose: 6.25 mg Cyanocobalamin (Vitamin B-12) 1,000 mcg PO DAILY [facility] Last Admin: 04/30/19 08:09 Dose: 1,000 mcg Famotidine (Pepcid) 20 mg PO BID [facility] Last Admin: 04/30/19 08:09 Dose: 20 mg Ferrous Sulfate (Feosol) 325 mg PO DAILY [facility] Last Admin: 04/30/19 08:09 Dose: 325 mg Folic Acid (Folvite) 1 mg PO DAILY [facility] Last Admin: 04/30/19 08:09 Dose: 1 mg Gabapentin (Neurontin) 300 mg PO BID [facility] Last Admin: 04/30/19 08:09 Dose: 300 mg Guaifenesin (Mucinex) 600 mg PO Q12HR [facility] Last Admin: 04/30/19 08:10 Dose: 600 mg Sodium Chloride (Normal Saline 0.9%) 1,000 mls @ 50 mls/hr IV .Q20H [facility] Last Admin: 04/30/19 00:23 Dose: Not Given Vancomycin HCl 750 mg/ Sodium (Chloride) 250 mls @ 250 mls/hr IVPB Q24HR [facility] Last Admin: 04/29/19 14:33 Dose: 250 mls Piperacillin Sod/Tazobactam (Sod 3.375 gm/ Sodium Chloride) 100 mls @ 200 mls/ hr IVPB 0530,1130,1730,2330 [facility] Last Admin: 04/30/19 11:22 Dose: 100 mls Iron/Minerals/Multivitamins (Theragran M) 1 tab PO DAILY [facility] Last Admin: 04/30/19 08:09 Dose: 1 tab Lisinopril (Zestril) 5 mg PO DAILY [facility] Last Admin: 04/30/19 08:09 Dose: 5 mg Loperamide HCl (Imodium) 2 mg PO PRN PRN PRN Reason: Diarrhea/Loose Stools Methylprednisolone Sodium Succinate (Solu-Medrol) 20 mg IVP Q8HR [facility] Last Admin: 04/30/19 05:25 Dose: 20 mg Mirtazapine (Remeron) 45 mg PO HS [facility] Last Admin: 04/29/19 21:47 Dose: 45 mg Miscellaneous Medication (Pharmacy To Dose) 1 each IVPB PRN PRN PRN Reason: Pharmacy to dose Mometasone Furoate/Formoterol Fumar (Dulera 200 Mcg/5 Mcg Inhaler) 2 puff INH BID-RT [facility] Last Admin: 04/30/19 06:15 Dose: 2 puff Ondansetron HCl (Zofran Odt) 4 mg PO Q6H PRN PRN Reason: Nausea/Vomiting Ondansetron HCl (Zofran) 4 mg IVP Q6H PRN PRN Reason: Nausea/Vomiting Pantoprazole Sodium (Protonix) 40 mg PO DAILY [facility] Last Admin: 04/30/19 11:22 Dose: 40 mg Ropinirole HCl (Requip) 0.5 mg PO HS [facility] Last Admin: 04/29/19 21:47 Dose: 0.5 mg Senna/Docusate Sodium (Senokot S) 2 tab PO BID PRN PRN Reason: Constipation Zolpidem Tartrate (Ambien) 5 mg PO HSPRN PRN PRN Reason: Insomnia Last Admin: 04/29/19 21:46 Dose: 5 mg
[2019-04-30 14:24] VITALS: BP 159/76; TEMP 97.5
--- NOTE | 2019-04-30 14:31 | DIS ---
DATE OF ADMISSION: 04/27/2019 DATE OF DISCHARGE: 04/30/2019 PRIMARY CARE PHYSICIAN: Dr. Johana Reina. DISCHARGE DISPOSITION: Home. PRIMARY DISCHARGE DIAGNOSES: 1. Severe sepsis. 2. Healthcare associated bacterial pneumonia, in record right lower lobe. 3. Acute respiratory failure with hypoxia. 4. Chronic obstructive pulmonary disease exacerbation. SECONDARY DISCHARGE DIAGNOSES: Moderate protein-calorie malnutrition, chronic physical deconditioning, macrocytic anemia, history of ischemic cardiomyopathy, hypertension, dyslipidemia, gastroesophageal reflux disease, senile dementia, chronic obstructive pulmonary disease, chronic normocytic anemia, coronary artery disease, anxiety and depression, history of solitary pulmonary nodule, history of deep venous thrombosis, and chronic anticoagulation. PRIMARY PROCEDURE/OPERATION: None. RADIOLOGICAL INVESTIGATION: Chest x-ray on admission showed COPD with interstitial lung disease. CT angiography which was done for elevated D-dimer, which showed no evidence of pulmonary embolism. The patient was found with stable 1 cm spiculated right middle lobe nodule. The patient also found with right lower lobe opacification. SIGNIFICANT LABORATORY DATA: WBC 7.5, hemoglobin 9.7, and platelet 127. Sodium 141 and creatinine 0.63. LFT normal. Lactic acid 1.2. Urinalysis unremarkable. Blood culture negative. Influenza negative. DISCHARGE MEDICATIONS: 1. Tylenol 650 mg q.4 hourly p.r.n. 2. Ventolin HFA 2 puffs q.6 hourly p.r.n. 3. Fosamax 70 mg every week. 4. Aspirin 81 mg daily. 5. Lipitor 40 mg p.o. daily. 6. Ferrous sulfate 325 mg p.o. daily. 7. Gabapentin 300 mg p.o. b.i.d. 8. Lisinopril 5 mg daily. 9. Remeron 45 mg p.o. at bedtime. 10. Ropinirole 0.5 mg p.o. at bedtime. 11. Nitroglycerin 0.4 mg sublingual p.r.n. 12. Augmentin 500 mg p.o. twice daily for 7 days. 13. Doxycycline 100 mg twice daily for 7 days. 14. Mucinex 600 mg twice daily for 7 days. 15. Eliquis 5 mg p.o. b.i.d. 16. Coreg 6.25 mg p.o. b.i.d. 17. Vitamin B12 of 1000 mcg p.o. daily. 18. Folic acid 1 mg p.o. daily. 19. Dulera 2 puffs inhalation b.i.d. 20. Multivitamin 1 tablet p.o. daily. 21. Protonix 40 mg p.o. b.i.d. 22. Prednisone 20 mg p.o. daily for 7 days. 23. Florastor 250 mg p.o. daily. CONTRAINDICATION: None. CODE STATUS: DNR. INPATIENT SALVAGE WINDER: None. ALLERGIES: NO KNOWN DRUG ALLERGIES. DISCHARGE PLAN: Post hospital, the patient will follow up with primary care physician in 1 week. The patient reported that she already has appointment from previous admission with Dr. Ryan for followup on pulmonary nodule. HOSPITAL COURSE: A 78-year-old female, who was recently admitted in the hospital for DVT and she was started on chronic anticoagulation with Eliquis therapy. After that, the patient was discharged to care home home, where she stayed about a month. She was released 3 days prior to admission from [facility] and she was started having cough, fever, and chills. She was evaluated by Home Health nurse and the patient was sent to emergency room. In the emergency room, chest x-ray showed COPD and chronic interstitial lung changes. She had CT angiography because of acute respiratory failure with hypoxia and that showed no evidence of pulmonary embolism, but opacification in the right lower lobe and stable 1 cm spiculated pulmonary nodule. This patient required admission to medical floor. She was treated with oxygen. She was given empiric antibiotic therapy with vancomycin and Zosyn. She was also treated with COPD flare-up with Solu-Medrol, Mucinex, DuoNeb therapy, and Dulera. On discharge, we changed to p.o. prednisone and antibiotic changed to Augmentin and doxycycline. The patient was doing much better by the time of discharge. The patient expressed that she already has appointment with a marketing services specialist for her pulmonary nodule follow up. This patient was not interested in going for any kind of aggressive intervention while in hospital whenever we were talking to her, rather she wanted to follow up with them as an outpatient basis. This patient's nutritional status is significantly poor. She has DNR status. She does not want any kind of aggressive and heroic measure and that is why we did not consult marketing services specialist during this admission per the patient request. The patient will follow up with marketing services specialist as an outpatient basis. By the time of discharge, the patient is more energetic and she is really interested in going home rather than anywhere else. She has recently finished a care home course and she prefers herself to go home. I have seen and examined the patient at bedside today. Paper work for discharge done and discharge medication reconciliation done. Total time spent on discharge day, 31 minutes. Job ID: [id number]
== END 2019-04-30 15:10 | disposition home or self-care (01) | DRG 871 ==
LOC: ERS 10:33 → T4-B 14:14
PROVIDERS: ADMIT Internal Medicine; ATTEND Internal Medicine
DX: A41.9 Sepsis, unspecified organism (principal); J96.21 Acute and chronic respiratory failure with hypoxia; J96.22 Acute and chronic respiratory failure with hypercapnia; J18.9 Pneumonia, unspecified organism; J44.0 Chronic obstructive pulmonary disease with (acute) lower respiratory infection; J44.1 Chronic obstructive pulmonary disease with (acute) exacerbation; I50.22 Chronic systolic (congestive) heart failure; Z68.1 Body mass index [BMI] 19.9 or less, adult; I42.9 Cardiomyopathy, unspecified; E44.0 Moderate protein-calorie malnutrition; Z66 Do not resuscitate; E78.5 Hyperlipidemia, unspecified; M81.0 Age-related osteoporosis without current pathological fracture; K21.9 Gastro-esophageal reflux disease without esophagitis; F41.9 Anxiety disorder, unspecified; F32.9 Major depressive disorder, single episode, unspecified; R65.20 Severe sepsis without septic shock; I11.0 Hypertensive heart disease with heart failure; D64.9 Anemia, unspecified; R91.1 Solitary pulmonary nodule; I25.10 Atherosclerotic heart disease of native coronary artery without angina pectoris; Y95 Nosocomial condition; F03.90 Unspecified dementia, unspecified severity, without behavioral disturbance, psychotic disturbance, mood disturbance, and anxiety; Z86.718 Personal history of other venous thrombosis and embolism; Z79.01 Long term (current) use of anticoagulants; Z79.899 Other long term (current) drug therapy
CPT/HCPCS: 36415; 71045; 71275; 80048; 80053; 81001; 83605; 85025; 87040; 87804; 93005; 94640; 94664; 96365; 96366; 96367; J1956; J2543; J2920; J3370; J3490; J7050; J7620; Q9966

== ENCOUNTER 2019-05-23 12:48 | Outpatient (CLI) | payer MEDICARE, OTHER ==
--- NOTE | 2019-05-23 14:00 | RAD ---
EXAM: Left Rib series HISTORY: Left chest wall pain after recent fall on Monday COMPARISON: None FINDINGS: Multiple views of the left ribs shows no evidence of acute rib fracture. There appears to be a healin g lower lateral rib fracture. No underlying pleural thickening or pneumothorax are seen. IMPRESSION: 1. No evidence of acute displaced rib fracture.
--- NOTE | 2019-05-23 15:23 | RAD ---
LUMBAR SPINE SERIES: Date: 05/23/19 HISTORY: Back pain. Recent fall. COMPARISON: 06/27/18 study. FINDINGS: There are vertebroplasty changes of L3. The bones are severely demineralized. Slight loss of vertebra l body height at L1 is stable. There are marked degenerative facet changes present. Vertebroplasties of the lower thoracic spine are also seen. IMPRESSION: Severe bony demineralization. No acute compression injury. POS: [facility]
--- NOTE | 2019-05-23 15:24 | RAD ---
THORACIC SPINE 2 VIEWS: HISTORY: Back pain status post fall. COMPARISON: 06/27/2018 study. FINDINGS: The bones are severely demineralized. Multilevel vertebroplasty changes are seen. There are also co mpression changes at multiple levels in addition to the vertebroplasty changes, all of which appear s table. IMPRESSION: No evidence of acute compression fracture. POS: [facility]
== END 2019-05-23 12:49 | disposition home or self-care (01) ==
LOC: BICRAD 12:48
PROVIDERS: ATTEND Family Medicine
DX: M54.5 Low back pain (principal); R07.9 Chest pain, unspecified; M81.0 Age-related osteoporosis without current pathological fracture
CPT/HCPCS: 72070; 72100

== ENCOUNTER 2019-08-20 11:06 | Outpatient (CLI) | payer MEDICARE, OTHER ==
--- NOTE | 2019-08-20 11:42 | CT ---
CT Chest WO Con History: Lung nodule Comparison: CT angiogram chest April 27, 2019 Findings: No significant interval growth a 1 cm nodule within the right middle lobe. Nodule is new fr om 2015. Severe background centrilobular emphysema. Mild bronchiectasis right middle lobe and lingula. Inspiss ated mucous secretions in the posterior basal segment right lower lobe with centrilobular nodules, similar. No pneumothorax. No effusion. No other new suspicious spiculated pulmonary mass. Compression deformities of the spine are similar with numerous compression deformities containing lise ent. Sternum and manubrium are intact. Multiple old left rib fractures. No acute displaced rib fracture. Multiple calcified granulomas of th e spleen and liver. Dense calcifications of the aorta. No mediastinal adenopathy. Impression: No significant interval growth from February 2019 mass within the right middle lobe still co ncerning for malignancy.
== END 2019-08-20 11:07 | disposition home or self-care (01) ==
LOC: CANPRECLI → CT 11:06
PROVIDERS: ATTEND Internal Medicine Critical Care Medicine
DX: R91.1 Solitary pulmonary nodule (principal); R91.8 Other nonspecific abnormal finding of lung field
CPT/HCPCS: 71250

== ENCOUNTER 2020-11-16 07:26 | Emergency (ER) | payer MEDICARE, OTHER ==
[2020-11-16] MEDS ORDERED: HYDROcodone/Acetaminophen 5/325 mg Tablet ONE (07:48)
--- NOTE | 2020-11-16 08:04 | RAD ---
RADIOGRAPH CHEST 1 VIEW: DATE: 11/16/2020 HISTORY: 80-year-old female with dyspnea FINDINGS: There is hyperinflation of the lungs, consistent with COPD. There is no evidence of airspace density, cardiomegaly pulmonary edema, or pneumothorax. The lateral costophrenic angles are not effaced. Diffuse severe osteoporosis. Multiple compression fractures of indeterminate ages in thoracic spine. Vertebroplasty cement in several levels at lower thoracic spine. IMPRESSION: 1) No acute pulmonary findings. 2) emphysema.
[2020-11-16 08:09] LABS: #Eosinphils 0.1 thou/uL (0.0-0.7); #Lymphocytes 1.1 thou/uL (1.20-3.40); #Monocytes 0.9 thou/uL (0.11-0.59); #Neutrophils 9.5 thou/uL (1.40-6.50); %Basophils 0.3 % (0.0-1.0); %Lymphocytes 9.4 % (21.0-51.0); %Monocytes 8.1 % (0.0-10.0); %Neutrophils 81.2 % (42.0-75.0); Hemoglobin 11.6 g/dL (12.0-16.0); Mean Corpuscular HGB CONC 32.6 g/dL (32.0-36.0); Mean Corpuscular Hemoglobin 32.4 pg (27.0-31.0); Mean Corpuscular Volume 99.4 fL (78.0-98.0); Mean Platelet Volume 8.3 fL (7.4-10.4); Platelet Count 139 thou/uL (130-400); RBC Distribution Width 14.3 % (11.5-14.5); Red Blood Cell (RBC) Count 3.59 mill/uL (4.20-5.40); White Blood Cell (WBC) Count 11.7 thou/uL (4.8-10.8)
--- NOTE | 2020-11-16 08:16 | RAD ---
XR Knee Rt 4 View STANDARD History: Fall. Knee pain Comparison: None. Findings: Bones are demineralized. No acute displaced fracture or malalignment. No significant joint effusion. Impression: No acute osseous abnormality.
--- NOTE | 2020-11-16 08:22 | RAD ---
XR Femur Rt 2 View STANDARD History: Fall Comparison: None. Findings: There is sufficient medial acetabular wall. Old obturator ring injuries. Abnormal anterior cortical lucency proximal femoral diaphysis could be stress related. Impression: 1. Insufficient medial acetabular wall. 2. On the frog leg lateral view of the right hip appears to be anterior cortical lucency proximal fem oral diaphysis which may reflect an insufficiency type fracture with some periosteal new bone formation.
--- NOTE | 2020-11-16 08:23 | RAD ---
XR Hip Rt 2-3 View History: Fall pain Comparison: None. Findings: Insufficient medial acetabular wall with subcortical lucency, age-indeterminate fracture. Visualization of the right femoral arthroplasty. Cortical lucency with some periosteal new bone forma tion of the proximal right femoral diaphysis. Old obturator ring injuries. Impression: 1. Insufficient medial acetabular wall with cortical lucency. 2. Circumferential cortical lucency of the proximal femoral diaphysis could be stress related fractur e as there is small volume periosteal new bone formation.
[2020-11-16 08:32] LABS: ALT (SGPT) 12 U/L (8-55); AST (SGOT) 15 U/L (5-34); Albumin 3.5 g/dL (3.4-4.8); Alkaline Phosphatase 56 U/L (40-110); Anion Gap 16 mmol/L (10-20); BUN (Urea Nitrogen) 15 mg/dL (9.8-20.1); Bilirubin, Total 0.8 mg/dL (0.2-1.2); CK (CPK) 63 U/L (29-168); Calc. Creatinine Clearance 0 mL/min (70-130); Calcium 8.7 mg/dL (7.8-10.44); Carbon Dioxide 28 mmol/L (23-31); Chloride 94 mmol/L (98-107); Globulin 3.2 g/dL (2.4-3.5); Glucose 113 mg/dL (83-110); Magnesium 1.8 mg/dL (1.6-2.6); Potassium 4.4 mmol/L (3.5-5.1); Protein, Total 6.7 g/dL (6.0-8.3); Sodium 134 mmol/L (136-145)
--- NOTE | 2020-11-16 09:20 | RAD ---
EXAM: XR Pelvis AP STANDARD PROVIDED CLINICAL HISTORY: Fall COMPARISON: No comparison examinations are currently available FINDINGS: Diffuse regional osteopenia, limiting evaluation. 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 There is lucency at the cement-bone interface about the femoral component of the right hip arthroplasty. Th ere is lucency about the acetabular component. There is a curvilinear focus of lucency at the junction of the right superior pubic ramus and the right acetabulum that may reflect nondisplaced fra cture. IMPRESSION: 1. Limited evaluation due to osteopenia and lack of comparison examinations. 2. Possible acute nondisplaced right superior pubic ramus fracture. 3. Findings suggesting loosening involving the right hip arthroplasty as described. Correlation with prior examinations is necessary.
[2020-11-16 09:31] LABS: Bacteria/HPF None Seen HPF (None Seen); Bilirubin 1+ (Negative); Blood, Urine Negative (Negative); Clarity Clear (Clear); Glucose, Urine (Dipstick) Normal (Negative); Ketone, Urine 40 mg/dL (Negative); Leukocyte Negative Leu/uL (Negative); Nitrite Negative (Negative); Protein, Urine (Dipstick) 50 mg/dL (Neg-Trace); RBC/HPF 0-3 HPF (0-3); Specific Gravity, Urine 1.022 (1.002-1.036); Squamous Epithelial 0-3 HPF (0-3); WBC/HPF 0-3 HPF (0-3)
--- NOTE | 2020-11-16 10:48 | RAD ---
XR Elbow Rt 4 View STANDARD History: Trauma Comparison: None. Findings: Large joint effusion. Skinfold streak artifact over the distal humerus. Nondisplaced olecra non fracture, intra-articular. Impression: Nondisplaced intra-articular olecranon fracture with large joint effusion.
== END 2020-11-16 15:19 ==
LOC: ERS 07:26
DX: R26.2 Difficulty in walking, not elsewhere classified (principal); I25.2 Old myocardial infarction; E78.5 Hyperlipidemia, unspecified; I10 Essential (primary) hypertension; J44.9 Chronic obstructive pulmonary disease, unspecified; Z79.82 Long term (current) use of aspirin; Z79.899 Other long term (current) drug therapy; W01.10XA Fall on same level from slipping, tripping and stumbling with subsequent striking against unspecified object, initial encounter
CPT/HCPCS: 24670; 36415; 71045; 72170; 80053; 81003; 81015; 82550; 83735; 84484; 85025; 93005

== ENCOUNTER 2021-03-10 10:24 | Outpatient (CLI) | payer MEDICARE, OTHER | END 2021-03-10 10:25 | disposition home or self-care (01) | LOC: BICCT 10:24 | PROVIDERS: ATTEND Internal Medicine Critical Care Medicine | DX: R91.8 Other nonspecific abnormal finding of lung field (principal) | CPT/HCPCS: 71250 ==

== ENCOUNTER 2021-05-24 22:26 | Inpatient (IN) | payer MEDICARE, OTHER ==
[2021-05-24] MEDS ORDERED: Ondansetron PF 4 MG/2 ML Vial ONE (23:11)
[2021-05-24] MEDS ORDERED: Morphine 2 MG/ML VIAL ONE (23:11)
[2021-05-24 23:44] LABS: Hemoglobin 13.4 g/dL (12.0-16.0); Mean Corpuscular HGB CONC 30.2 g/dL (32.0-36.0); Mean Corpuscular Hemoglobin 31.2 pg (27.0-31.0); Mean Platelet Volume 9.6 fL (7.4-10.4); Platelet Count 240 thou/uL (130-400); RBC Distribution Width 15.1 % (11.5-14.5); White Blood Cell (WBC) Count 32.8 thou/uL (4.8-10.8)
[2021-05-25 00:02] LABS: ALT (SGPT) 15 U/L (8-55); AST (SGOT) 19 U/L (5-34); Albumin 3.4 g/dL (3.4-4.8); Alkaline Phosphatase 77 U/L (40-110); Anion Gap 18 mmol/L (10-20); BUN (Urea Nitrogen) 15 mg/dL (9.8-20.1); Bilirubin, Total 0.3 mg/dL (0.2-1.2); CK (CPK) 38 U/L (29-168); Calc. Creatinine Clearance 0 mL/min (70-130); Calcium 8.8 mg/dL (7.8-10.44); Carbon Dioxide 22 mmol/L (23-31); Chloride 104 mmol/L (98-107); Glucose 222 mg/dL (83-110); Lipase 9 U/L (8-78); Potassium 4.1 mmol/L (3.5-5.1); Protein, Total 6.4 g/dL (5.8-8.1); Sodium 140 mmol/L (136-145)
[2021-05-25 00:05] LABS: Lymphocytes 4 % (21-51); MDiff Complete? YES; Metamyelocyte 1 % (0-0); Monocytes 4 % (0-10); Neutrophil 91 % (42-75); Platelet Morphology Comment Appears Adequate
[2021-05-25 00:10] LABS: Bilirubin Negative (Negative); Blood, Urine Large (Negative); Glucose, Urine (Dipstick) Negative (Negative); Ketone, Urine 40 mg/dL (Negative); Leukocyte Moderate (Negative); Nitrite Negative (Negative); Protein, Urine (Dipstick) 30 mg/dL (Neg-Trace); Urobilinogen 0.2 mg/dL (Less than 2)
[2021-05-25 00:17] LABS: Clarity Cloudy (Clear)
[2021-05-25 00:18] LABS: Specific Gravity, Urine 1.026 (1.002-1.036)
[2021-05-25] MEDS ORDERED: Piperacillin/Tazobactam 3.375 GM VIAL ONE (02:00)
[2021-05-25] MEDS ORDERED: Morphine 2 MG/ML VIAL ONE (02:00)
[2021-05-25] MEDS ORDERED: Ondansetron PF 4 MG/2 ML Vial IVP PRN (02:42)
[2021-05-25] MEDS ORDERED: Acetaminophen 325 MG TAB PO PRN (02:42)
[2021-05-25] MEDS ORDERED: Sodium Chloride 0.9% 1,000 ML IV SCH (02:45)
[2021-05-25 02:50] LABS: Lactic Acid 9.6 mmol/L (0.5-2.2)
[2021-05-25] MEDS ORDERED: VANCOMYCIN 1.25 GM/250 ML BAG 1.25 GM in Premix Bag 1 BAG IVPB SCH (03:30)
[2021-05-25] MEDS ORDERED: Rocuronium Bromide 10 MG/ML (10ML VIAL) ONE ×2 (03:57→04:56)
[2021-05-25] MEDS ORDERED: Fentanyl 100 MCG/2 ML VIAL ONE ×2 (04:15→08:02)
[2021-05-25] MEDS ORDERED: EPINEPHrine 1 MG/10 ML Abboject SYRINGE ONE (04:26)
[2021-05-25] MEDS ORDERED: Norepinephrine 8 MG/0.9% NS 250 ML ONE (04:26)
[2021-05-25 04:29] LABS: Actual Bicarbonate (HCO3a) 8.6 mEq/L (22-28); Analyzer IN Cardio ER; Base Excess (BEa) -20.8 mEq/L (-2.0 to +3.0); CO2 Tension 32.4 mmHg (35.0-45.0); Carboxyhemoglobin (COHb) 0.8 gm% (0.0-3.0); Hemoglobin (Hb) 12.2 g/dL (12.0-16.0); O2 Tension (PaO2), arterial 118.3 mmHg (> 60.0); Potassium - ABG Lab 4.57 mmol/L (3.70-5.30)
[2021-05-25] MEDS ORDERED: Fentanyl CADD 100 ML IV SCH ×2 (04:30→10:00)
[2021-05-25 04:31] LABS: Puncture Site LRA; pH, Arterial 7.04 (7.35-7.45)
[2021-05-25] MEDS ORDERED: Sodium Bicarb 50 MEQ/50 ML Abboject 8.4% SYRINGE IVP SCH ×2 (04:45→11:30)
[2021-05-25 04:48] LABS: Actual Bicarbonate (HCO3a) 10.7 mEq/L (22-28); Analyzer IN Cardio ER; Base Excess (BEa) -16.4 mEq/L (-2.0 to +3.0); CO2 Tension 29.6 mmHg (35.0-45.0); Calcium, Ionized (arterial) 1.02 mmol/L (1.12-1.30); Carboxyhemoglobin (COHb) 0.2 gm% (0.0-3.0); Hemoglobin (Hb) 10.7 g/dL (12.0-16.0); O2 Tension (PaO2), arterial 310.4 mmHg (> 60.0); Potassium - ABG Lab 3.88 mmol/L (3.70-5.30)
[2021-05-25 04:50] LABS: Puncture Site LRA; pH, Arterial 7.18 (7.35-7.45)
[2021-05-25] MEDS ORDERED: PROPOFOL 200 MG/20 ML VIAL ONE (04:56)
[2021-05-25] MEDS ORDERED: Dexamethasone 20 MG/5 ML VIAL ONE (04:56)
[2021-05-25] MEDS ORDERED: Ondansetron PF 4 MG/2 ML Vial ONE (04:56)
[2021-05-25] MEDS ORDERED: ePHEDrine Sulfate 50 MG/10 ML VIAL ONE (04:56)
[2021-05-25] MEDS ORDERED: PHENYLEPHRINE-NS 100 MCG/ML 10 ML SYRINGE ONE (04:56)
[2021-05-25 05:22] LABS: SARS-CoV-2 NAA Rapid Test Not Detected (NotDetected)
[2021-05-25] MEDS ORDERED: Sodium Chloride 0.9% 20 ML ONE (05:48)
[2021-05-25] MEDS ORDERED: Ondansetron HCl/PF 4 MG/2 ML Vial IVP PRN (05:53)
[2021-05-25] MEDS ORDERED: Promethazine HCl 25 MG/ML VIAL IM PRN (05:53)
[2021-05-25] MEDS ORDERED: Promethazine HCl 25 MG/ML VIAL IVPB PRN (05:53)
[2021-05-25 06:36] LABS: Base Excess (BEa) -9.7 mEq/L (-2.0 to +3.0); CO2 Tension 34.4 mmHg (35.0-45.0); Calcium, Ionized (arterial) 1.07 mmol/L (1.12-1.30); Carboxyhemoglobin (COHb) 1.3 gm% (0.0-3.0); Hemoglobin (Hb) 10.9 g/dL (12.0-16.0); Potassium - ABG Lab 4.22 mmol/L (3.70-5.30); pH, Arterial 7.29 (7.35-7.45)
[2021-05-25 06:41] LABS: Puncture Site LRA
[2021-05-25] MEDS ORDERED: Midazolam HCl 2 mg/2 ml Vial ONE (06:51)
[2021-05-25] MEDS ORDERED: HumaLOG 300 UNITS/3 ML VIAL SC PRN (08:15)
[2021-05-25] MEDS ORDERED: Dextrose 50% Abboject 50 ML SYRINGE SLOW IVP PRN (08:15)
[2021-05-25] MEDS ORDERED: Dextrose 5% in Water 1,000 ML IV PRN (08:15)
[2021-05-25 08:23] LABS: Hemoglobin 12.1 g/dL (12.0-16.0); Mean Corpuscular HGB CONC 30.9 g/dL (32.0-36.0); Mean Corpuscular Hemoglobin 32.4 pg (27.0-31.0); Mean Platelet Volume 9.7 fL (7.4-10.4); Platelet Count 207 thou/uL (130-400); RBC Distribution Width 15.1 % (11.5-14.5); Red Blood Cell (RBC) Count 3.74 mill/uL (4.20-5.40); White Blood Cell (WBC) Count 41.2 thou/uL (4.8-10.8)
[2021-05-25 08:37] LABS: Anion Gap 21 mmol/L (10-20); BUN (Urea Nitrogen) 19 mg/dL (9.8-20.1); Calc. Creatinine Clearance 0 mL/min (70-130); Calcium 7.6 mg/dL (7.8-10.44); Carbon Dioxide 13 mmol/L (23-31); Chloride 112 mmol/L (98-107); Glucose 175 mg/dL (83-110); Potassium 4.8 mmol/L (3.5-5.1); Sodium 141 mmol/L (136-145)
[2021-05-25] MEDS ORDERED: Sodium Chloride 0.9% (PF) 10 ML VIAL FS PRN (08:45)
[2021-05-25 09:03] LABS: MDiff Complete? YES
[2021-05-25 09:04] LABS: Band 23 % (5-11); Lymphocytes 8 % (21-51); Macrocytosis SLIGHT = 6-15 cells (100X) (0-5/hpf); Neutrophil 65 % (42-75); Platelet Morphology Comment Appears Adequate; Polychromasia SLIGHT = 2-3 cells (100X) (0-2/hpf); Reactive Lymphocytes 4 % (0-10)
[2021-05-25] MEDS ORDERED: Propofol 1,000 MG/100 ML VIAL IV ONE (09:22)
[2021-05-25] MEDS ORDERED: Iopamidol-370 76% 500 ML 1 ML ONE (09:37)
[2021-05-25] MEDS ORDERED: DISCONTINUE PREVIOUS NARCOTIC PAIN MEDICATIONS AND BENZODIAZEPINES FS SCH (09:45)
[2021-05-25] MEDS ORDERED: Propofol 1,000 MG/100 ML VIAL IV PRN (10:00)
[2021-05-25] MEDS ORDERED: Fentanyl BOLUS 250 ML IVPB PRN (10:00)
[2021-05-25] MEDS ORDERED: Lorazepam 2 MG/ML VIAL SLOW IVP PRN (10:00)
[2021-05-25] MEDS ORDERED: Morphine 2 MG/ML VIAL SLOW IVP PRN (10:00)
[2021-05-25] MEDS ORDERED: Propofol BOLUS 1,000 MG/100 ML VIAL IV PRN (10:00)
[2021-05-25 10:51] VITALS: BMI 20.8
[2021-05-25 11:07] LABS: Actual Bicarbonate (HCO3a) 10.3 mEq/L (22-28); CO2 Tension 21.6 mmHg (35.0-45.0)
[2021-05-25 11:08] LABS: Analyzer IN Cardio OR; Base Excess (BEa) -14.4 mEq/L (-2.0 to +3.0); Calcium, Ionized (arterial) 1.07 mmol/L (1.12-1.30); Carboxyhemoglobin (COHb) 1.3 gm% (0.0-3.0); Hemoglobin (Hb) 11.2 g/dL (12.0-16.0); Potassium - ABG Lab 4.87 mmol/L (3.70-5.30); Puncture Site RBA
[2021-05-25] MEDS: Piperacillin/Tazobactam 3.375 GM in Sodium Chloride 0.9% 100 ML IVPB SCH ×3 (11:38→21:40)
[2021-05-25] MEDS: Sodium Chloride 0.9% 1,000 ML IV SCH ×4 (11:38→21:41)
[2021-05-25] MEDS: Pantoprazole 40 MG VIAL IVP SCH (11:39)
[2021-05-25] MEDS: Hydrocortisone Sod Succ/PF 100 mg/2 ml Vial IVP SCH ×2 (12:38→17:00)
[2021-05-25 13:33] LABS: Actual Bicarbonate (HCO3a) 16.4 mEq/L (22-28); Base Excess (BEa) -4.9 mEq/L (-2.0 to +3.0); Calcium, Ionized (arterial) 0.97 mmol/L (1.12-1.30); Carboxyhemoglobin (COHb) 1.3 gm% (0.0-3.0); Hemoglobin (Hb) 12.1 g/dL (12.0-16.0); O2 Tension (PaO2), arterial 101.3 mmHg (> 60.0); Potassium - ABG Lab 4.67 mmol/L (3.70-5.30)
[2021-05-25 13:35] LABS: CO2 Tension 21.3 mmHg (35.0-45.0); Puncture Site RBA
[2021-05-25 13:36] LABS: ALV-art Gradient 121.625 mmHg (0-20)
[2021-05-25] MEDS ORDERED: Acetaminophen 650 MG Suppository PR PRN (16:40)
[2021-05-25] MEDS ORDERED: Norepinephrine 8 MG/0.9% NS 250 ML IVPB SCH (21:00)
[2021-05-26] MEDS: Hydrocortisone Sod Succ/PF 100 mg/2 ml Vial IVP SCH ×3 (00:38→14:07)
[2021-05-26] MEDS: Sodium Chloride 0.9% 1,000 ML IV SCH (01:00)
[2021-05-26 05:05] VITALS: TEMP 98.4
[2021-05-26 05:21] LABS: Band 24 % (5-11); Hypochromia SLIGHT = 6-15 cells (100X) (0-5/hpf); Lymphocytes 13 % (21-51); MDiff Complete? YES; Macrocytosis SLIGHT = 6-15 cells (100X) (0-5/hpf); Mean Corpuscular HGB CONC 30.5 g/dL (32.0-36.0); Mean Corpuscular Hemoglobin 32.9 pg (27.0-31.0); Mean Platelet Volume 10.4 fL (7.4-10.4); Metamyelocyte 1 % (0-0); Monocytes 9 % (0-10); Neutrophil 52 % (42-75); Platelet Count 150 thou/uL (130-400); Platelet Morphology Comment Appears Adequate; RBC Distribution Width 15.8 % (11.5-14.5); Reactive Lymphocytes 1 % (0-10); Red Blood Cell (RBC) Count 3.05 mill/uL (4.20-5.40); White Blood Cell (WBC) Count 38.9 thou/uL (4.8-10.8)
[2021-05-26] MEDS ORDERED: Sodium Bicarb 50 MEQ/50 ML Abboject 8.4% SYRINGE IVP SCH (05:45)
[2021-05-26] MEDS ORDERED: Calcium Chloride 1 GM/10 ML Abboject SYRINGE ONE ×2 (05:47→10:14)
[2021-05-26] MEDS ORDERED: Dextrose 50% Abboject 50 ML SYRINGE ONE ×3 (05:50→10:14)
[2021-05-26] MEDS ORDERED: Insulin Regular 300 UNITS/3 ML VIAL ONE (05:55)
[2021-05-26 06:11] LABS: Chloride 119 mmol/L (98-107); Sodium 145 mmol/L (136-145)
[2021-05-26] MEDS ORDERED: Insulin Regular 300 UNITS/3 ML VIAL IVP SCH (06:15)
[2021-05-26 06:16] LABS: BUN (Urea Nitrogen) 29 mg/dL (9.8-20.1); Calc. Creatinine Clearance 17 mL/min (70-130); Calcium 6.4 mg/dL (7.8-10.44); Carbon Dioxide Less than 8 mmol/L (23-31); Glucose 12 mg/dL (83-110); Potassium 8.2 mmol/L (3.5-5.1)
[2021-05-26] MEDS: Piperacillin/Tazobactam 3.375 GM in Sodium Chloride 0.9% 100 ML IVPB SCH ×2 (06:29→14:07)
[2021-05-26] MEDS ORDERED: Albuterol Sulfate 2.5 mg/3 ml Neb NEB SCH (06:30)
[2021-05-26] MEDS ORDERED: Calcium Gluconate 4.6 MEQ in Sodium Chloride 0.9% 100 ML IVPB SCH (06:30)
[2021-05-26] MEDS ORDERED: Sodium Bicarbonate 150 MEQ in Dextrose 5% in Water 1,000 ML IV SCH (06:45)
[2021-05-26 06:53] LABS: Magnesium 2.1 mg/dL (1.6-2.6)
[2021-05-26 07:06] VITALS: BP 97/69
[2021-05-26 07:08] LABS: Lactic Acid 15.4 mmol/L (0.5-2.2)
[2021-05-26 07:16] LABS: Actual Bicarbonate (HCO3a) 8.3 mEq/L (22-28); Base Excess (BEa) -20.4 mEq/L (-2.0 to +3.0); CO2 Tension 30.3 mmHg (35.0-45.0); Calcium, Ionized (arterial) 1.03 mmol/L (1.12-1.30); Carboxyhemoglobin (COHb) 1.9 gm% (0.0-3.0); Hemoglobin (Hb) 7.9 g/dL (12.0-16.0); O2 Tension (PaO2), arterial 119.2 mmHg (> 60.0); Potassium - ABG Lab 6.34 mmol/L (3.70-5.30)
[2021-05-26 07:19] LABS: pH, Arterial 7.06 (7.35-7.45)
[2021-05-26 07:20] LABS: ALV-art Gradient 92.475 mmHg (0-20); Puncture Site RBA
[2021-05-26] MEDS ORDERED: Lidocaine 1% w/Epinephrine 1:100K 20 ML VIAL ONE (07:43)
[2021-05-26] MEDS ORDERED: Fentanyl CADD 100 ML ONE (07:52)
[2021-05-26] MEDS ORDERED: EPINEPHrine 1 MG/10 ML Abboject SYRINGE ONE (10:14)
[2021-05-26] MEDS ORDERED: Sodium Bicarb 50 MEQ/50 ML Abboject 8.4% SYRINGE ONE (10:14)
[2021-05-26] MEDS: Pantoprazole 40 MG VIAL IVP SCH (13:46)
== END 2021-05-26 10:32 | disposition expired | DRG 853 ==
LOC: ERS 22:26 → ERHOLD 05-25 01:35 → SURG A 05-25 05:03 → CCU 05-25 10:42
PROVIDERS: ADMIT Internal Medicine; ATTEND Internal Medicine
PROC: 0DN80ZZ Release Small Intestine, Open Approach (ICD-10-PCS; principal; 2021-05-25)
PROC: 02HV33Z Insertion of Infusion Device into Superior Vena Cava, Percutaneous Approach (ICD-10-PCS; 2021-05-25)
PROC: B5181ZA Fluoroscopy of Superior Vena Cava using Low Osmolar Contrast, Guidance (ICD-10-PCS; 2021-05-25)
PROC: 0BH18EZ Insertion of Endotracheal Airway into Trachea, Via Natural or Artificial Opening Endoscopic (ICD-10-PCS; 2021-05-25)
PROC: 5A1935Z Respiratory Ventilation, Less than 24 Consecutive Hours (ICD-10-PCS; 2021-05-25)
PROC: 3E033XZ Introduction of Vasopressor into Peripheral Vein, Percutaneous Approach (ICD-10-PCS; 2021-05-26)
PROC: 5A1D70Z Performance of Urinary Filtration, Intermittent, Less than 6 Hours Per Day (ICD-10-PCS; 2021-05-26)
PROC: 06HY33Z Insertion of Infusion Device into Lower Vein, Percutaneous Approach (ICD-10-PCS; 2021-05-26)
PROC: 5A12012 Performance of Cardiac Output, Single, Manual (ICD-10-PCS; 2021-05-26)
DX: A41.9 Sepsis, unspecified organism (principal); J96.00 Acute respiratory failure, unspecified whether with hypoxia or hypercapnia; R65.21 Severe sepsis with septic shock; K56.2 Volvulus; K55.029 Acute infarction of small intestine, extent unspecified; K55.019 Acute (reversible) ischemia of small intestine, extent unspecified; I50.22 Chronic systolic (congestive) heart failure; K56.609 Unspecified intestinal obstruction, unspecified as to partial versus complete obstruction; N17.9 Acute kidney failure, unspecified; I47.2 Ventricular tachycardia; Z66 Do not resuscitate; I25.10 Atherosclerotic heart disease of native coronary artery without angina pectoris; E78.5 Hyperlipidemia, unspecified; G89.29 Other chronic pain; J44.9 Chronic obstructive pulmonary disease, unspecified; K21.9 Gastro-esophageal reflux disease without esophagitis; I11.0 Hypertensive heart disease with heart failure; F41.9 Anxiety disorder, unspecified; F32.9 Major depressive disorder, single episode, unspecified; R73.9 Hyperglycemia, unspecified; Z20.822 Contact with and (suspected) exposure to COVID-19; G62.9 Polyneuropathy, unspecified; E87.5 Hyperkalemia; I46.2 Cardiac arrest due to underlying cardiac condition; Z99.81 Dependence on supplemental oxygen; Z79.82 Long term (current) use of aspirin; Z79.899 Other long term (current) drug therapy; Z90.710 Acquired absence of both cervix and uterus; Z90.49 Acquired absence of other specified parts of digestive tract; Z98.890 Other specified postprocedural states; Z95.5 Presence of coronary angioplasty implant and graft; Z87.891 Personal history of nicotine dependence; Z88.5 Allergy status to narcotic agent; Z78.1 Physical restraint status
CPT/HCPCS: 0240U; 36415; 36416; 36600; 71045; 74018; 74177; 80048; 80053; 81003; 81015; 82550; 82805; 83036; 83605; 83690; 83735; 84484; 85025; 87040; 87077; 87086; 87186; 93005; 93010; 94002; 94003; 94640; C1751; C9113; J0171; J1100; J1720; J1815; J2001; J2250; J2270; J2405; J2543; J2704; J3010; J3370; J3490; J7070; J7611; J7620; Q9967